=== PATIENT | male | born 1990 | race African-American/Black ===

== ENCOUNTER 2016-09-19 10:47 | Emergency (ER) | payer OTHER ==
[2016-09-19 10:51] VITALS: BP 120/65; PULSE 108; TEMP 100; BMI 24.4
[2016-09-19] MEDS ORDERED: ALBUTEROL SO4 2.5/IPRATROPIUM 0.5 INH SOL 3 ML VIAL.NEB. NEB ONE ×3 (11:10→12:14)
[2016-09-19] MEDS ORDERED: ACETAMINOPHEN 325 MG TABLET (FP) PO ONE (11:41)
--- NOTE | 2016-09-19 11:43 | PDOC ---
History of Present Illness - General Chief Complaint: Asthma Stated Complaint: SOB (ASTHMA ATTACK) Time Seen by Provider: 09/19/16 11:25 History Source: Patient Exam Limitations: No Limitations - History of Present Illness Initial Comments: 09/19/16 11:43 Pt. is a 26 y/o male with a PMH of asthma presenting to the ED today complaining of shortness of breath and chest tightness. Pt. believes he is having an asthma exacerbation. Pt. states that he has asthma since childhood. He has never been hospitalized or intubated for his asthma. His asthma has gotten better as an adult and he only uses an albuterol inhaler when needed. He states his inhaler has run out. Pt. states that he has a cold for the past day. Admits to fevers, runny nose, cough, and congestion. Denies a history of seasonal allergys. States that he had a similar episode back in July when he had a cold. Denies body aches, ear fullness, chest pain, N/V/D. Timing/Duration: 24 hours Past History - Travel Traveled outside of the country in the last 30 days: No Close contact w/someone who was outside of country & ill: No - Past Medical History Allergies/Adverse Reactions: Allergies Allergy/AdvReac Type Severity Reaction Status Date / Time moxifloxacin Allergy Severe Difficulty Verified 09/19/16 10:51 Breathing NSAIDS (Non-Steroidal Allergy Severe Difficulty Verified 09/19/16 10:51 Anti-Inflamma Breathing moxifloxacin HCl Allergy Verified 09/19/16 10:51 [From Avelox] Home Medications: Ambulatory Orders Mometasone Furoate [Asmanex 220Mcg -] 1 inh IH BID 03/13/15 Albuterol Sulfate Inhaler - [Ventolin Hfa Inhaler -] 1 - 2 inh PO Q4H PRN #1 inhaler 12/04/15 Albuterol 0.083% Nebulizer Ewelina [Ventolin 0.083% Nebulizer Soln -] 1 neb NEB Q4H #28 vial 09/19/16 Albuterol Sulfate Inhaler - [Ventolin HFA Inhaler -] 2 inh PO Q4H #1 inh Albuterol Sulfate Inhaler - [Ventolin HFA Inhaler -] 2 inh PO Q4H #1 inh Prednisone 20 mg PO BID #20 tablet 09/19/16 Prednisone 20 mg PO BID #20 tablet 09/19/16 Asthma: Yes - Surgical History Abdominal Surgery: Yes Appendectomy: Yes Cardiac Surgery: No Lung Surgery: Yes (LT LUNG/ Chest tube, ABSCESS) Neurologic Surgery: No - Immunization History Immunization Up to Date: Yes - Psycho/Social/Smoking Cessation Hx Anxiety: No Suicidal Ideation: No Smoking History: Never smoked Have you smoked in the past 12 months: No Number of Cigarettes Smoked Daily: 0 If you are a former smoker, when did you quit?: has not smoked for 3 days- but only smokes 1-2 cigarrettes per day. Cigars Per Day: 0 'Breaking Loose' booklet given: 04/26/14 Hx Alcohol Use: Yes (SOCIAL) Drug/Substance Use Hx: No Substance Use Type: None Hx Substance Use Treatment: No Review of Systems - Review of Systems Able to Perform ROS?: Yes Is the patient limited Croatian proficient: No Constitutional: Yes: Fever. No: Chills, Diaphoresis, Weakness HEENTM: Yes: Nose Congestion. No: Ear Pain, Ear Discharge, Throat Pain Respiratory: Yes: Cough, Shortness of Breath, SOB with Exertion, Wheezing Cardiac (ROS): Yes: Chest Tightness. No: Chest Pain, Palpitations ABD/GI: No: Constipated, Diarrhea, Nausea, Vomiting *Physical Exam - Vital Signs Last Vital Signs Temp Pulse Resp BP Pulse Ox 100.0 F H 108 H 20 120/65 97 09/19/16 10:48 09/19/16 10:48 09/19/16 10:48 09/19/16 10:48 09/19/16 10:48 - Physical Exam General Appearance: Yes: Nourished, Appropriately Dressed, Mild Distress (Pt. recieving 1st duoneb treatment given in triage) HEENT: positive: EOMI, KEV, Normal Voice, TMs Normal, Pharynx Normal, Nasal Congestion, Rhinorrhea. negative: Pharyngeal Erythema, Tonsillar Exudate Neck: positive: Trachea midline, Supple. negative: Tender, Normal Thyroid, Rigid Respiratory/Chest: positive: Respiratory Distress (Mild respiratory distress, chest tightness and SOB), Wheezing. negative: Lungs Clear (Fair aeration to the bases), Normal Breath Sounds, Accessory Muscle Use, Rales, Rhonchi Cardiovascular: positive: Regular Rhythm, S1, S2 (present), Tachycardia. negative: Regular Rate Medical Decision Making - Medical Decision Making 09/19/16 12:15 Pt. is a 26 y/o male with asthma presenting with an asthma exacerbation. Will r/ o flu as cause of URI. Expiratory wheezing present B/L after first duoneb. Will give second duoneb. Will give steroids. Re-evaluate 09/19/16 12:45 Pt. states he feels better after second duoneb. Less chest tightness. Still with scattered wheezing after treatemnt. Will give one more treatment 09/19/16 13:04 Pt. states he remains feeling better after third duoneb. Wheezing has subsided and there is fair aeration to the bases. Will discharge home at this time with a prescription for a new inhaler and prednisone. Pt is to see his PCP within the week to have his asthma re-evaluated. Given strict return precautions. Pt. understands discharge instructions and all questions were answered at this time. *DC/Admit/Observation/Transfer Diagnosis at time of Disposition: Asthma exacerbation, Viral respiratory illness - Discharge Dispostion Disposition: HOME Condition at time of disposition: Stable Admit: No - Prescriptions Prescriptions: Prednisone 20 mg PO BID #20 tablet Prednisone 20 mg PO BID #20 tablet Albuterol 0.083% Nebulizer Ewelina [Ventolin 0.083% Nebulizer Soln -] 1 neb NEB Q4H #28 vial Albuterol Sulfate Inhaler - [Ventolin HFA Inhaler -] 2 inh PO Q4H #1 inh Albuterol Sulfate Inhaler - [Ventolin HFA Inhaler -] 2 inh PO Q4H #1 inh - Referrals Referrals: Live Lopez MD [Primary Care Provider] - - Patient Instructions Printed Discharge Instructions: DI for Asthma -- Adult Additional Instructions: You have an upper respiratory infection that caused an asthma exacerbation. Your influenza test was negative. You were given nebulizer treatments in the ED. Use your nebulizer every four hours until your cold symptoms resolve. Take the steroids as prescribed. Follow up with your primary care doctor within the week. Return to the emergency department if you experience worsening shortness of breath despite nebulizer use, shortness of breath while walking, or any change in your symptoms, return to the ED. - Post Discharge Activity Work/School Note: Back to Work
[2016-09-19] MEDS ORDERED: ACETAMINOPHEN 325 MG TABLET (FP) ONE (11:51)
[2016-09-19] MEDS ORDERED: predniSONE 20 MG TABLET (UD) PO ONE (12:36)
[2016-09-19] MEDS ORDERED: predniSONE 20 MG TABLET (UD) ONE (12:41)
== END 2016-09-19 13:04 | disposition home or self-care (01) ==
LOC: JERFT 10:47
PROC: 3E0F7GC Introduction of Other Therapeutic Substance into Respiratory Tract, Via Natural or Artificial Opening (ICD-10-PCS; principal; 2016-09-19)
PROC: 3E0F7GC Introduction of Other Therapeutic Substance into Respiratory Tract, Via Natural or Artificial Opening (ICD-10-PCS; 2016-09-19)
DX: J45.901 Unspecified asthma with (acute) exacerbation (principal); B34.9 Viral infection, unspecified
CPT/HCPCS: 87804; 99281-25

== ENCOUNTER 2017-01-27 19:05 | Inpatient (IN) | payer SELFPAY ==
[2017-01-27 19:25] VITALS: BMI 25.1
--- NOTE | 2017-01-27 21:05 | PDOC ---
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 Also history of abscess to left lung which required drainage presents emergency department for evaluation of lesions to mouth, lesions to skin, redness and pain full eyes sore throat, pain to left lateral chest when breathing or reproduced with certain movements. Patient reports had similar pain to the left lung during incident that required surgery to drain the abscess. Patient reports feeling that he is having a flare up of the behcets syndrome and is worried that it may cause him to lose his sight as has happened in the past. Allergies: No known allergies Medications: None Family History: Non-contributory Social History: Denies smoking, alcohol use, or IVDU Vital signs on arrival are notable for temperature of 98.6 vital signs are stable Review of Systems GENERAL/CONSTITUTIONAL: No fever or chills. No weakness. No weight change. HEAD, EYES, EARS, NOSE AND THROAT: No blurred vision. No ear pain or discharge. Sore throat, lesions to lip, pain and redness to bilateral eyes CARDIOVASCULAR: No chest pain or shortness of breath. RESPIRATORY: No cough, wheezing, or hemoptysis. Pain to left lung on inspiration and reproduced with movement GASTROINTESTINAL: No nausea, vomiting, diarrhea or constipation. No rectal bleeding. GENITOURINARY: No dysuria, frequency, or change in urination. MUSCULOSKELETAL: No joint or muscle swelling or pain. No neck or back pain. SKIN AND BREASTS: No rash or easy bruising. Multiple painful lesions to arms NEUROLOGIC: No headache, vertigo, loss of consciousness, or loss of sensation. PSYCHIATRIC: No depression or anxiety. ENDOCRINE: No increased thirst. No abnormal weight change. HEMATOLOGIC/LYMPHATIC: No anemia, easy bleeding, or history of blood clots. ALLERGIC/IMMUNOLOGIC: No hives or skin allergy. No latex allergy. Physical Exam: GENERAL: The patient is awake, alert, and fully oriented, in no acute distress. HEAD: Normal with no signs of trauma. EYES: Pupils equal, round and reactive to light, extraocular movements intact, sclera anicteric, conjunctiva injected bilaterally. ENT: Ears normal, nares patent, oropharynx erythematous without exudates. Moist mucous membranes. No uvula deviation. Canker lesions to left lower lip. NECK: Normal range of motion, supple without lymphadenopathy, JVD, or masses. LUNGS: Breath sounds equal, clear to auscultation bilaterally. No wheezes, and no crackles. HEART: Regular rate and rhythm, normal S1 and S2 without murmur, rub or gallop. ABDOMEN: Soft, nontender, normoactive bowel sounds. No guarding, no rebound. No masses. No bruising or abrasions RECTAL : Guaiac negative, normal rectal tone. MUSCULOSKELETAL: Normal range of motion, no edema. No clubbing or cyanosis. No cords, erythema, or tenderness. No CVA Tenderness with fist. NEUROLOGICAL: Cranial nerves II through XII grossly intact. Normal speech, normal gait. PSYCH: Normal mood, normal affect. SKIN: Warm, Dry, normal turgor, multiple umbilicated painful lesions to left forearm. Past History - Past Medical History Allergies/Adverse Reactions: Allergies Allergy/AdvReac Type Severity Reaction Status Date / Time moxifloxacin Allergy Severe Difficulty Verified 01/27/17 19:20 Breathing NSAIDS (Non-Steroidal Allergy Severe Difficulty Verified 01/27/17 19:20 Anti-Inflamma Breathing moxifloxacin HCl Allergy Verified 01/27/17 19:20 [From Avelox] Home Medications: Ambulatory Orders Albuterol 0.083% Nebulizer Ewelina [Ventolin 0.083% Nebulizer Soln -] 1 neb NEB Q4H #28 vial 09/19/16 Sulfamethoxazole/Trimethoprim [Bactrim Ds -] 1 tab PO BID #14 tablet 01/27/17 Asthma: Yes Other medical history: Bechet's syndrome - Surgical History Abdominal Surgery: Yes Appendectomy: Yes Cardiac Surgery: No Lung Surgery: Yes (LT LUNG/ Chest tube, ABSCESS) Neurologic Surgery: No - Immunization History Immunization Up to Date: Yes - Suicide/Smoking/Psychosocial Hx Smoking History: Never smoked Have you smoked in the past 12 months: No Number of Cigarettes Smoked Daily: 0 If you are a former smoker, when did you quit?: has not smoked for 3 days- but only smokes 1-2 cigarrettes per day. Cigars Per Day: 0 Information on smoking cessation initiated: No 'Breaking Loose' booklet given: 04/26/14 Hx Alcohol Use: Yes (Cognac) Drug/Substance Use Hx: No Substance Use Type: None Hx Substance Use Treatment: No *Physical Exam - Vital Signs Last Vital Signs Temp Pulse Resp BP Pulse Ox 98.6 F 63 20 113/67 97 01/27/17 19:21 01/27/17 19:21 01/27/17 19:21 01/27/17 19:21 01/27/17 19:21 ED Treatment Course - LABORATORY CBC & Chemistry Diagram: 01/29/17 07:00 01/29/17 07:00 Medical Decision Making - Medical Decision Making 01/27/17 21:06 A/P: Patient here for evaluation of symptoms in regards to exacerbation of Behcets syndrome, r/o lung acute pathology. Because of patient's history of present illness and subjective data will place patient in the main emergency department for higher level of care. Rapid strep sent, chest x-ray ordered to rule out abscess or acute cardiopulmonary disease. Report to Perla charge nurse. *DC/Admit/Observation/Transfer Diagnosis at time of Disposition: Behcet's disease, Dehydration - Discharge Dispostion Condition at time of disposition: Guarded - Prescriptions
[2017-01-27] MEDS ORDERED: methylPREDNISolone NA SUCC 125 MG/2 ML VIAL IVPB ONE (22:37)
[2017-01-27] MEDS ORDERED: SODIUM CHLORIDE 0.9% 500 ML INFUS.BAG IV ONE (22:37)
--- NOTE | 2017-01-27 22:43 | PDOC ---
History of Present Illness - General History Source: Patient Exam Limitations: No Limitations - History of Present Illness Initial Comments: 01/27/17 23:28 The patient is a 26 year old male with a significant past medical history of MRSA, behcet's disease ( diagnosed a few years ago [facility] after he had a jane rachell like reaction to NSAIDs), who presents to the ED with scratchy eyes, pain in mouth, and pustules on his skin. Patient states symptoms began 3 days ago and is consistent with his past behcets flare ups. Patient states Dr. Lopez has been dealing with his behcets flare ups in the past. Patient states he is unable to eat or drink because of the lesions in his mouth. Patient denies fever, chills, headache, nausea, vomiting, diarrhea. Denies dysuria, frequency, hematuria. <Jaziel Godoy - Last Filed: 01/27/17 23:43> <Melany Virgen - Last Filed: 01/28/17 00:40> - General Chief Complaint: Sore Throat Stated Complaint: PAIN Time Seen by Provider: 01/27/17 20:34 Past History <Jaziel Godoy - Last Filed: 01/27/17 23:43> - Past Medical History Asthma: Yes Other medical history: Bechet's syndrome - Surgical History Abdominal Surgery: Yes Appendectomy: Yes Cardiac Surgery: No Lung Surgery: Yes (LT LUNG/ Chest tube, ABSCESS) Neurologic Surgery: No - Immunization History Immunization Up to Date: Yes - Suicide/Smoking/Psychosocial Hx Smoking History: Never smoked Have you smoked in the past 12 months: No Number of Cigarettes Smoked Daily: 0 If you are a former smoker, when did you quit?: has not smoked for 3 days- but only smokes 1-2 cigarrettes per day. Cigars Per Day: 0 Information on smoking cessation initiated: No 'Breaking Loose' booklet given: 04/26/14 Hx Alcohol Use: Yes (Cognac) Drug/Substance Use Hx: No Substance Use Type: None Hx Substance Use Treatment: No <Melany Virgen - Last Filed: 01/28/17 00:40> - Past Medical History Allergies/Adverse Reactions: Allergies Allergy/AdvReac Type Severity Reaction Status Date / Time moxifloxacin Allergy Severe Difficulty Verified 01/27/17 19:20 Breathing NSAIDS (Non-Steroidal Allergy Severe Difficulty Verified 01/27/17 19:20 Anti-Inflamma Breathing moxifloxacin HCl Allergy Verified 01/27/17 19:20 [From Avelox] Home Medications: Ambulatory Orders Albuterol 0.083% Nebulizer Ewelina [Ventolin 0.083% Nebulizer Soln -] 1 neb NEB Q4H #28 vial 09/19/16 Sulfamethoxazole/Trimethoprim [Bactrim Ds -] 1 tab PO BID #14 tablet 01/27/17 Review of Systems - Review of Systems Able to Perform ROS?: Yes Comments:: 01/27/17 23:28 GENERAL/CONSTITUTIONAL: No fever or chills. No weakness. HEAD, EYES, EARS, NOSE AND THROAT: + scratchy eyes. + pain in mouth. No change in vision. No ear pain or discharge. No sore throat. CARDIOVASCULAR: No chest pain or shortness of breath. RESPIRATORY: No cough, wheezing, or hemoptysis. GASTROINTESTINAL: No nausea, vomiting, diarrhea or constipation. GENITOURINARY: No dysuria, frequency, or change in urination. MUSCULOSKELETAL: No joint or muscle swelling or pain. No neck or back pain. SKIN: pustules on his skin. NEUROLOGIC: No headache, vertigo, loss of consciousness, or change in strength/ sensation. ENDOCRINE: No increased thirst. No abnormal weight change. HEMATOLOGIC/LYMPHATIC: No anemia, easy bleeding, or history of blood clots. ALLERGIC/IMMUNOLOGIC: No hives or skin allergy. <Jaziel Godoy - Last Filed: 01/27/17 23:43> *Physical Exam - Vital Signs Last Vital Signs Temp Pulse Resp BP Pulse Ox 98.6 F 63 20 113/67 97 01/27/17 19:21 01/27/17 19:21 01/27/17 19:21 01/27/17 19:21 01/27/17 19:21 - Physical Exam Comments: 01/27/17 23:29 GENERAL: Awake, alert, and fully oriented, in no acute distress HEAD: No signs of trauma EYES: Bright red sclera bilaterally PERRLA, EOMI, conjunctiva clear. ENT: Inside mouth: multiple lesions on the pharynx. Auricles normal inspection, hearing grossly normal, nares patent, Moist mucosa NECK: Normal ROM, supple, no lymphadenopathy, JVD, or masses LUNGS: Breath sounds equal, clear to auscultation bilaterally. No wheezes, and no crackles HEART: Regular rate and rhythm, normal S1 and S2, no murmurs, rubs or gallops ABDOMEN: Soft, nontender, normoactive bowel sounds. No guarding, no rebound. No masses EXTREMITIES: Normal range of motion, no edema. No clubbing or cyanosis. No cords, erythema, or tenderness NEUROLOGICAL: Cranial nerves II through XII grossly intact. Normal speech, normal gait SKIN: Lesion on outer lateral lip. Warm, Dry, normal turgor. <Jaziel Godoy - Last Filed: 01/27/17 23:43> - Vital Signs Last Vital Signs Temp Pulse Resp BP Pulse Ox 98.6 F 63 20 113/67 97 01/27/17 19:21 01/27/17 19:21 01/27/17 19:21 01/27/17 19:21 01/27/17 19:21 <Melany Virgen - Last Filed: 01/28/17 00:40> ED Treatment Course - LABORATORY CBC & Chemistry Diagram: 01/27/17 22:50 01/27/17 22:50 - ADDITIONAL ORDERS Additional order review: Laboratory Results 01/27/17 22:50 Sodium Cancelled Potassium Cancelled Chloride Cancelled Carbon Dioxide Cancelled Anion Gap Cancelled BUN Cancelled Creatinine Cancelled Creat Clearance w eGFR Cancelled Random Glucose Cancelled Calcium Cancelled Total Bilirubin Cancelled AST Cancelled ALT Cancelled Alkaline Phosphatase Cancelled Total Protein Cancelled Albumin Cancelled 01/27/17 20:40 Group A Strep Rapid Antigen - Final Throat 01/27/17 22:50 RBC 5.28 MCV 90.9 MCHC 33.8 RDW 15.3 MPV 8.5 Neutrophils % 78.9 D Lymphocytes % 9.4 D Monocytes % 10.3 H Eosinophils % 0.5 Basophils % 0.9 - Medications Given in the ED: ED Medications Discontinued Medications Generic Name Dose Route Start Last Admin Trade Name Josueq PRN Reason Stop Dose Admin Methylprednisolone Sodium Succinate 125 mg 01/27/17 22:37 01/27/17 23:08 Solu-Medrol - IVPB 01/27/17 22:38 125 mg ONCE ONE Administration Morphine Sulfate 2 mg 01/27/17 23:07 01/27/17 23:07 Morphine Injection - IVPUSH 01/27/17 23:08 2 mg NOW ONE Administration Ondansetron HCl 4 mg 01/27/17 23:08 01/27/17 23:09 Zofran Injection IVPUSH 01/27/17 23:09 4 mg NOW ONE Administration Sodium Chloride 1,000 ml 01/27/17 22:37 01/27/17 23:08 Normal Saline - IV 01/27/17 22:38 1,000 ml ONCE ONE Administration <Jaziel Godoy - Last Filed: 01/27/17 23:43> - LABORATORY CBC & Chemistry Diagram: 01/27/17 22:50 01/27/17 22:50 - ADDITIONAL ORDERS Additional order review: 01/27/17 20:40 Group A Strep Rapid Antigen - Final Throat <Melany Virgen - Last Filed: 01/28/17 00:40> Medical Decision Making - Medical Decision Making 01/27/17 23:[address] Campuzano. <Jaziel Godoy - Last Filed: 01/27/17 23:43> - Medical Decision Making 01/28/17 00:22 Pt comes with irritated and red eyes bilaterally and sore mouth and throat. Can' t eat or drink and his eyes are dry. Pt has Behcet's Disease. WBC is elevated and pt received morphine for his pain <Melany Virgen - Last Filed: 01/28/17 00:40> *DC/Admit/Observation/Transfer - Attestations Scribe Attestion: 01/27/17 23:31 Documentation prepared by Jaziel Godoy, acting as medical equipment repair technician for Melany Virgen MD. <Jaziel Godoy - Last Filed: 01/27/17 23:43> - Discharge Dispostion Admit: Yes <Melany Virgen - Last Filed: 01/28/17 00:40> Diagnosis at time of Disposition: Behcet's disease, Dehydration - Discharge Dispostion Condition at time of disposition: Guarded - Prescriptions Prescriptions: Sulfamethoxazole/Trimethoprim [Bactrim Ds -] 1 tab PO BID #14 tablet - Referrals Referrals: Live Lopez MD [Primary Care Provider] -
[2017-01-27 22:56] LABS: BASOPHIL 0.9 % (0-2.0); EOSINOPHIL 0.5 % (0-4.5); MCH 30.7 pg (25.7-33.7); MCHC 33.8 g/dl (32.0-35.9); MEAN CELL VOLUME 90.9 fl (80-96); MEAN PLT VOLUME 8.5 fl (7.5-11.1); NEUTROPHILS 78.9 % (42.8-82.8); PLATELET COUNT 212 K/MM3 (134-434); RDW 15.3 % (11.9-15.9); WHITE BLOOD COUNT 15.6 K/mm3 (4.0-10.0)
[2017-01-27] MEDS ORDERED: methylPREDNISolone NA SUCC 125 MG/2 ML VIAL ONE (22:58)
[2017-01-27] MEDS ORDERED: morphine CARPU-JECT 2 MG/1 ML DISP.SYRIN ONE (22:58)
[2017-01-27] MEDS ORDERED: ONDANSETRON 4 MG/2 ML VIAL ONE (22:58)
[2017-01-27] MEDS ORDERED: morphine CARPU-JECT 2 MG/1 ML DISP.SYRIN IVPUSH ONE (23:07)
[2017-01-27] MEDS ORDERED: ONDANSETRON 4 MG/2 ML VIAL IVPUSH ONE (23:08)
[2017-01-27] MEDS ORDERED: SULFAMETHOXAZOLE/TRIMETHOPRIM 800MG/160MG D.S. TABLET PO ONE (23:24)
[2017-01-27] MEDS ORDERED: DOXYCYCLINE INJECTION 100 MG in DEXTROSE 5%-WATER - 100 ML IVPB ONE (23:28)
[2017-01-27] MEDS ORDERED: DOXYCYCLINE HYCLATE 100 MG VIAL ONE (23:31)
[2017-01-27] MEDS ORDERED: ALBUTEROL SO4 0.083% IH SOL 2.5 MG/3 ML VIAL.NEB. NEB PRN (23:50)
[2017-01-27] MEDS ORDERED: VANCOMYCIN 1,000 MG in DEXTROSE 5%-WATER - 250 ML IVPB ONE (23:52)
[2017-01-28 00:59] LABS: ALBUMIN 3.6 g/dl (3.4-5.0); ALK PHOS 40 U/L (45-117); ANION GAP 9 (8-16); BILIRUBIN,TOTAL 0.6 mg/dL (0.2-1.0); CALCIUM 8.7 mg/dL (8.5-10.1); CO2 28 mmol/L (21-32); CREATININE 0.9 mg/dL (0.7-1.3); GLUCOSE,RANDOM 102 mg/dL (74-106); SGPT/ALT 19 U/L (12-78); TOT PROT 7.2 g/dl (6.4-8.2)
[2017-01-28 01:00] LABS: SGOT/AST 18 U/L (15-37)
[2017-01-28] MEDS ORDERED: VANCOMYCIN 1 GRAM (PRE-DOCKED) 250 ML IVPB ONE (01:42)
[2017-01-28] MEDS ORDERED: ONDANSETRON 4 MG/2 ML VIAL ONE (01:42)
[2017-01-28] MEDS ORDERED: morphine CARPU-JECT 2 MG/1 ML DISP.SYRIN ONE (01:42)
[2017-01-28] MEDS: ONDANSETRON 4 MG/2 ML VIAL IVPB PRN (01:46)
[2017-01-28] MEDS: morphine CARPU-JECT 2 MG/1 ML DISP.SYRIN IVPUSH PRN ×7 (01:46→21:58)
[2017-01-28] MEDS: DEXTROSE 5%-0.45% SALINE 1,000 ML IV SCH ×3 (03:21→23:45)
[2017-01-28] MEDS ORDERED: ACETAMINOPHEN 1000 MG/100 ML VIAL (NON FORMULARY) IVPB ONE (04:28)
[2017-01-28] MEDS: methylPREDNISolone NA SUCC 125 MG/2 ML VIAL IVPB SCH ×3 (06:15→21:52)
[2017-01-28 07:53] LABS: BASOPHIL 0.3 % (0-2.0); MCH 30.8 pg (25.7-33.7); MCHC 33.4 g/dl (32.0-35.9); MEAN CELL VOLUME 92.1 fl (80-96); NEUTROPHILS 91.8 % (42.8-82.8); PLATELET COUNT 199 K/MM3 (134-434); RDW 15.1 % (11.9-15.9); WHITE BLOOD COUNT 9.8 K/mm3 (4.0-10.0)
[2017-01-28 08:50] LABS: ANION GAP 13 (8-16); CALCIUM 9.1 mg/dL (8.5-10.1); CO2 24 mmol/L (21-32); GLUCOSE,RANDOM 104 mg/dL (74-106)
[2017-01-28] MEDS ORDERED: morphine CARPU-JECT 2 MG/1 ML DISP.SYRIN IVPUSH ONE (09:45)
--- NOTE | 2017-01-28 11:05 | EKG ---
Test Reason : Blood Pressure : / mmHG Vent. Rate : 055 BPM Atrial Rate : 055 BPM P-R Int : 154 ms QRS Dur : 094 ms QT Int : 420 ms P-R-T Axes : 061 072 055 degrees QTc Int : 401 ms SINUS BRADYCARDIA POSSIBLE LEFT ATRIAL ENLARGEMENT EARLY REPOLARIZATION BORDERLINE ECG WHEN COMPARED WITH ECG OF 30-APR-2013 08:48, NO SIGNIFICANT CHANGE WAS FOUND Confirmed by GILMA TERRY MD ([id number]) on 01/28/2017 11:05:29 AM Referred By: Confirmed By:GILMA TERRY MD
--- NOTE | 2017-01-28 12:53 | HP ---
Admitting History and Physical - Primary Care Physician PCP: Live Lopez - Admission Chief Complaint: I have Behcet's disease History of Present Illness: Mr Johnson is a very pleasant 26 year old male who comes in with worsening oral ulcerations over the past 3 weeks. He states he has a history of Behcets disease diagnosed in [place] prior to moving to [place] for school. He says it was originally diagnosed after he had a Law-Evan like reaction after taking NSAIDs. It is normal under control with prednisone. However 3 weeks ago he began to have a flare. He mainly noted it in his mouth and he was having pain with swallowing. It improved at first but steadily worsened. He was taking his prednisone but without relief. It became so severe that he was unable to eat or drink anything secondary to pain. He also noted very dry feeling eyes and small penile lesions. He felt feverish and had chills but says his temperature is normal. He denies lightheadedness, dizziness, passing out, shortness of breath, nausea, vomiting, diarrhea, constipation, difficulty or pain on urination, or swelling. He says he has left sided chest/flank pain that is similar to when he had to have an abscess drained. History Source: Patient Limitations to Obtaining History: No Limitations - Past Medical History Pulmonary: Yes: Asthma, Previously Intubated Rheumatology: Yes: Other (Law-Evan syndrome/Behcet's disease) ENT: Yes: Other (Mucositis) Dermatology: Yes: Other - Past Surgical History Past Surgical History: Yes: Appendectomy - Smoking History Smoking history: Never smoked Have you smoked in the past 12 months: No Aproximately how many cigarettes per day: 0 If you are a former smoker, when did you quit?: has not smoked for 3 days- but only smokes 1-2 cigarrettes per day. - Alcohol/Substance Use Hx Alcohol Use: Yes (Cognac) History of Substance Use: reports: None, Marijuana - Social History Usual Living Arrangement: Yes: Alone ADL: Independent Occupation: sells womens shoes in [employer] History of Recent Travel: No (no pet exposure, no fumes) Home Medications - Allergies Allergies/Adverse Reactions: Allergies Allergy/AdvReac Type Severity Reaction Status Date / Time moxifloxacin Allergy Severe Difficulty Verified 01/27/17 19:20 Breathing NSAIDS (Non-Steroidal Allergy Severe Difficulty Verified 01/27/17 19:20 Anti-Inflamma Breathing moxifloxacin HCl Allergy Verified 01/27/17 19:20 [From Avelox] - Home Medications Home Medications: Ambulatory Orders Albuterol 0.083% Nebulizer Ewelina [Ventolin 0.083% Nebulizer Soln -] 1 neb NEB Q4H #28 vial 09/19/16 Sulfamethoxazole/Trimethoprim [Bactrim Ds -] 1 tab PO BID #14 tablet 01/27/17 Family Disease History - Family Disease History Family Disease History: Other: Father (alive), Mother (thyroid dis, alive) Review of Systems Findings/Remarks: Full review of systems obtained, as per HPI and otherwise negative Physical Examination Vital Signs: Vital Signs Temperature 36.7 C 01/28/17 12:00 Pulse Rate 72 01/28/17 12:00 Respiratory Rate 20 01/28/17 12:00 Blood Pressure 138/69 01/28/17 12:00 O2 Sat by Pulse Oximetry (%) 98 01/28/17 06:00 Constitutional: Yes: Well Nourished, No Distress, Calm Eyes: Yes: Conjunctiva Clear, EOM Intact, PERRL HENT: Yes: Other (ulceration of mucous membranes) Cardiovascular: Yes: Regular Rate and Rhythm. No: Gallop, Murmur, Rub Respiratory: Yes: Regular, CTA Bilaterally. No: Rales, Rhonchi, Wheezes Gastrointestinal: Yes: Normal Bowel Sounds, Soft. No: Distention, Tenderness Renal/: Yes: Other (small penile ulcerations) Extremities: Yes: WNL Edema: No Labs: Laboratory Results - last 24 hr 01/27/17 01/27/17 01/27/17 22:50 22:50 22:50 WBC 15.6 H D RBC 5.28 Hgb 16.2 Hct 48.0 MCV 90.9 MCH 30.7 MCHC 33.8 RDW 15.3 Plt Count 212 MPV 8.5 Neutrophils % 78.9 D Lymphocytes % 9.4 D Monocytes % 10.3 H Eosinophils % 0.5 Basophils % 0.9 ESR 13 H Sodium Cancelled Potassium Cancelled Chloride Cancelled Carbon Dioxide Cancelled Anion Gap Cancelled BUN Cancelled Creatinine Cancelled Creat Clearance w eGFR Cancelled Random Glucose Cancelled Calcium Cancelled Total Bilirubin Cancelled AST Cancelled ALT Cancelled Alkaline Phosphatase Cancelled Total Protein Cancelled Albumin Cancelled 01/28/17 01/28/17 01/28/17 00:22 06:00 06:00 WBC 9.8 D RBC 4.99 Hgb 15.4 Hct 45.9 MCV 92.1 MCH 30.8 MCHC 33.4 RDW 15.1 Plt Count 199 MPV 9.0 Neutrophils % 91.8 H Lymphocytes % 6.2 L D Monocytes % 1.7 L D Eosinophils % 0.0 D Basophils % 0.3 ESR Sodium 139 139 Potassium 4.3 4.6 Chloride 102 102 Carbon Dioxide 28 24 Anion Gap 9 13 BUN 13 11 Creatinine 0.9 1.0 Creat Clearance w eGFR > 60 Random Glucose 102 D 104 Calcium 8.7 9.1 Total Bilirubin 0.6 D AST 18 D ALT 19 Alkaline Phosphatase 40 L Total Protein 7.2 Albumin 3.6 Imaging - Results Chest X-ray: Report Reviewed, Image Reviewed Problem List - Problems (1) Behcet's disease Assessment/Plan: -patient with history of Behcet's disease, now with flare -on high dose solumedrol, will continue and monitor for treatment -rheumatology consulted, ? if needs escalation and will need outpatient follow up -appreciate ID assistance, monitor for infectious process Code(s): M35.2 - BEHCET'S DISEASE (2) Dehydration Assessment/Plan: -continue IVF Code(s): E86.0 - DEHYDRATION (3) Conjunctivitis Assessment/Plan: -secondary to Behcets disease -continue solumedrol -await rheumatology recommendations Code(s): H10.9 - UNSPECIFIED CONJUNCTIVITIS Qualifiers: Conjunctivitis type: acute Acute conjunctivitis type: unspecified Laterality: left Qualified Code(s): H10.32 - Unspecified acute conjunctivitis, left eye (4) Odynophagia Assessment/Plan: -pain control with morphine -treatment of Behcet's disease Code(s): R13.10 - DYSPHAGIA, UNSPECIFIED
--- NOTE | 2017-01-28 13:49 | CON.ID ---
Consult Consult Specialty:: infectious diseases Reason for Consultation:: wound infection. bechets - History of Present Illness Chief Complaint: pain in the cheek History of Present Illness: 26 year old male who comes in with worsening oral ulcerations over the past 3 weeks. He states he has a history of Behcets disease diagnosed in [place] prior to moving to [place] for school. He says it was originally diagnosed after he had a Law-Evan like reaction after taking avelox. It is normal under control with prednisone. However 3 weeks ago he began to have a flare. He mainly noted it in his mouth and he was having pain with swallowing. It improved at first but steadily worsened. He was taking his prednisone but without relief. It became so severe that he was unable to eat or drink anything secondary to pain. He also noted very dry feeling eyes and felt like he had sand paper in his eyes and small penile lesions. He felt feverish and had chills but says his temperature is normal. he also mentions that on his left hand he got small abscess which he squeezed and the fluid went and touched his lips where he got the same type of lesions currently his main complaint is pain in the cheek - History Source History Provided By: Patient Limitations to Obtaining History: No Limitations - Past Medical History Pulmonary: Yes: Asthma, Previously Intubated Rheumatology: Yes: Other (Law-Evan syndrome) ENT: Yes: Other (Mucositis) Endocrine: Yes: Diabetes Mellitus Dermatology: Yes: Other Additional Medical History: see above - Past Surgical History Past Surgical History: Yes: Appendectomy - Alcohol/Substance Use Hx Alcohol Use: Yes (Cognac) History of Substance Use: reports: None - Smoking History Smoking history: Never smoked Have you smoked in the past 12 months: No Aproximately how many cigarettes per day: 0 If you are a former smoker, when did you quit?: has not smoked for 3 days- but only smokes 1-2 cigarrettes per day. 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[employer] History of Recent Travel: No (no pet exposure, no fumes) Home Medications - Allergies Allergies/Adverse Reactions: Allergies Allergy/AdvReac Type Severity Reaction Status Date / Time moxifloxacin Allergy Severe Difficulty Verified 01/27/17 19:20 Breathing NSAIDS (Non-Steroidal Allergy Severe Difficulty Verified 01/27/17 19:20 Anti-Inflamma Breathing moxifloxacin HCl Allergy Verified 01/27/17 19:20 [From Avelox] - Home Medications Home Medications: Ambulatory Orders Albuterol 0.083% Nebulizer Ewelina [Ventolin 0.083% Nebulizer Soln -] 1 neb NEB Q4H #28 vial 09/19/16 Sulfamethoxazole/Trimethoprim [Bactrim Ds -] 1 tab PO BID #14 tablet 01/27/17 Family Disease History - Family Disease History Family Disease History: Other: Father (alive), Mother (thyroid dis, alive) Review of Systems - Review of Systems Constitutional: reports: Fever Eyes: reports: No Symptoms HENT: reports: Other (ulcers in the cheek) Neck: reports: No Symptoms Cardiovascular: reports: No Symptoms Respiratory: reports: No Symptoms Gastrointestinal: reports: No Symptoms Genitourinary: reports: Other (penile lesions) Musculoskeletal: reports: No Symptoms Integumentary: reports: No Symptoms Neurological: reports: No Symptoms Endocrine: reports: No Symptoms Hematology/Lymphatic: reports: No Symptoms Psychiatric: reports: No Symptoms Physical Exam Vital Signs: Vital Signs Temperature 98.0 F 01/28/17 12:00 Pulse Rate 72 01/28/17 12:00 Respiratory Rate 20 01/28/17 12:00 Blood Pressure 138/69 01/28/17 12:00 O2 Sat by Pulse Oximetry (%) 98 01/28/17 06:00 Constitutional: Yes: Well Nourished, Calm, Mild Distress Eyes: Yes: Conjunctiva Clear, Tearing, Other (dry sensation in the eyes) HENT: Yes: Atraumatic, Normocephalic, Other (ulcers in the cheek) Neck: Yes: Supple, Trachea Midline Cardiovascular: Yes: Regular Rate and Rhythm Respiratory: Yes: Regular, CTA Bilaterally Gastrointestinal: Yes: Normal Bowel Sounds, Soft Musculoskeletal: Yes: WNL Extremities: Yes: WNL Integumentary: Yes: WNL Wound/Incision: Yes: Clean/Dry Neurological: Yes: Alert, Oriented Psychiatric: Yes: Alert, Oriented Imaging - Results Chest X-ray: Report Reviewed, Image Reviewed Assessment/Plan Problem List - Problems (1) Behcet's disease Code(s): M35.2 - BEHCET'S DISEASE (2) Dehydration Code(s): E86.0 - DEHYDRATION (3) Conjunctivitis Code(s): H10.9 - UNSPECIFIED CONJUNCTIVITIS Qualifiers: Conjunctivitis type: acute Acute conjunctivitis type: unspecified Laterality: left Qualified Code(s): H10.32 - Unspecified acute conjunctivitis, left eye (4) Odynophagia Code(s): R13.10 - DYSPHAGIA, UNSPECIFIED patient probably has behcets disease plan await for all cx reports await for rheum to see the patient patient probably need tnf blockers patient already is on steorids once rheum starts the patient on treatment --will start patient on clinda
[2017-01-28] MEDS: TRIAMCINOLONE ACET 0.1% ORAL 5 GM TUBE DT SCH ×2 (14:53→21:52)
[2017-01-28] MEDS ORDERED: PANTOPRAZOLE SODIUM 40 MG in SODIUM CHLORIDE 100 ML IVPB SCH (20:30)
[2017-01-28] MEDS ORDERED: PT OWN MED DRAWER 7, Y5N ONE (20:32)
[2017-01-28] MEDS: PANTOPRAZOLE SODIUM 40 MG in SODIUM CHLORIDE 100 ML IVPB SCH (21:51)
[2017-01-29] MEDS: morphine CARPU-JECT 2 MG/1 ML DISP.SYRIN IVPUSH PRN ×4 (00:58→11:32)
[2017-01-29] MEDS: methylPREDNISolone NA SUCC 125 MG/2 ML VIAL IVPB SCH (06:22)
[2017-01-29] MEDS: DEXTROSE 5%-0.45% SALINE 1,000 ML IV SCH ×2 (07:58→21:14)
[2017-01-29 08:04] LABS: BASOPHIL 0.1 % (0-2.0); MCH 30.5 pg (25.7-33.7); MCHC 33.2 g/dl (32.0-35.9); MEAN CELL VOLUME 91.7 fl (80-96); MEAN PLT VOLUME 9.2 fl (7.5-11.1); NEUTROPHILS 91.7 % (42.8-82.8); PLATELET COUNT 216 K/MM3 (134-434); RDW 14.9 % (11.9-15.9); WHITE BLOOD COUNT 17.3 K/mm3 (4.0-10.0)
[2017-01-29 08:20] LABS: CALCIUM 8.9 mg/dL (8.5-10.1); CO2 29 mmol/L (21-32); CREATININE 0.8 mg/dL (0.7-1.3); GLUCOSE,RANDOM 117 mg/dL (74-106); MAGNESIUM 2.2 mg/dL (1.8-2.4)
[2017-01-29 08:25] LABS: ANION GAP 6 (8-16)
[2017-01-29] MEDS ORDERED: PT OWN MED DRAWER 7, Y5N ONE ×2 (10:47→15:48)
[2017-01-29] MEDS: PANTOPRAZOLE SODIUM 40 MG in SODIUM CHLORIDE 100 ML IVPB SCH (10:49)
[2017-01-29] MEDS: TRIAMCINOLONE ACET 0.1% ORAL 5 GM TUBE DT SCH ×2 (10:49→21:13)
[2017-01-29] MEDS ORDERED: HYDROmorphone HCL CARPU-JECT 1 MG/1 ML DISP.SYRIN IVPB ONE (12:23)
--- NOTE | 2017-01-29 12:39 | PN ---
Progress Note, Physician Chief Complaint: Mr Johnson says he is still having pain with swallowing, unchanged from prior. No cp, sob, n/v. - Current Medication List Current Medications: Active Medications Albuterol Sulfate (Ventolin 0.083% Nebulizer Soln -) 1 amp NEB Q4H PRN PRN Reason: SHORTNESS OF BREATH Hydromorphone HCl (Dilaudid Injection -) 0.5 mg IVPB ONCE ONE Stop: 01/29/17 12:24 Hydromorphone HCl (Dilaudid Injection -) 1 mg IVPB Q4H PRN PRN Reason: PAIN Dextrose/Sodium Chloride (D5-1/2ns -) 1,000 mls @ 100 mls/hr IV ASDIR [facility] Last Admin: 01/29/17 07:58 Dose: 100 mls/hr Pantoprazole Sodium 40 mg/ (Sodium Chloride) 100 mls @ 200 mls/hr IVPB DAILY [facility] Last Admin: 01/29/17 10:49 Dose: 200 mls/hr Methylprednisolone Sodium Succinate (Solu-Medrol -) 80 mg IVPB TID [facility] Last Admin: 01/29/17 06:22 Dose: 80 mg Ondansetron HCl (Zofran Injection) 4 mg IVPB Q6H PRN PRN Reason: NAUSEA Last Admin: 01/28/17 01:46 Dose: 4 mg Triamcinolone Acetonide (Aristocort 0.1% Oral Paste -) 1 applic DT BID [facility] Last Admin: 01/29/17 10:49 Dose: 1 applic - Objective Vital Signs: Vital Signs Temperature 36.6 C 01/29/17 11:00 Pulse Rate 59 L 01/29/17 11:00 Respiratory Rate 18 01/29/17 11:00 Blood Pressure 125/80 01/29/17 11:00 O2 Sat by Pulse Oximetry (%) 95 01/29/17 07:00 Constitutional: Yes: Well Nourished, No Distress, Calm Cardiovascular: Yes: Regular Rate and Rhythm. No: Gallop, Murmur, Rub Respiratory: Yes: Regular, CTA Bilaterally. No: Rales, Rhonchi, Wheezes Gastrointestinal: Yes: Normal Bowel Sounds, Soft. No: Distention, Tenderness Extremities: Yes: WNL Edema: No Labs: CBC, BMP 01/29/17 07:01/29/17 07:00 Problem List - Problems (1) Behcet's disease Code(s): M35.2 - BEHCET'S DISEASE (2) Dehydration Code(s): E86.0 - DEHYDRATION (3) Conjunctivitis Code(s): H10.9 - UNSPECIFIED CONJUNCTIVITIS Qualifiers: Conjunctivitis type: acute Acute conjunctivitis type: unspecified Laterality: left Qualified Code(s): H10.32 - Unspecified acute conjunctivitis, left eye (4) Odynophagia Code(s): R13.10 - DYSPHAGIA, UNSPECIFIED Assessment/Plan (1) Behcet's disease Assessment/Plan: -appreciate rheumatology assistance -started on colchicine and imuran -ECHO ordered -solumedrol decreased -monitor for improvement Code(s): M35.2 - BEHCET'S DISEASE (2) Dehydration Assessment/Plan: -continue IVF Code(s): E86.0 - DEHYDRATION (3) Conjunctivitis Assessment/Plan: -ophthalmology consulted Code(s): H10.9 - UNSPECIFIED CONJUNCTIVITIS Qualifiers: Conjunctivitis type: acute Acute conjunctivitis type: unspecified Laterality: left Qualified Code(s): H10.32 - Unspecified acute conjunctivitis, left eye (4) Odynophagia Assessment/Plan: -pain control with dilaudid -treatment of Behcet's disease Code(s): R13.10 - DYSPHAGIA, UNSPECIFIED
[2017-01-29] MEDS: HYDROmorphone HCL CARPU-JECT 1 MG/1 ML DISP.SYRIN IVPB PRN ×3 (12:58→22:02)
--- NOTE | 2017-01-29 13:03 | CONSULT ---
Consult Consult Specialty:: Rheumatology - History of Present Illness History of Present Illness: 26 year old male with probable Behcet's disease admitted with recurrent oral mucositis. In 2011 the patent developed severe swelling of the lips and oral ulcers after treatment with Avalox for pneumonia. He did not develop skin rash, was diagnosed with Vladimir's Evan syndrome, and hospitalized. in [facility] [place] [place], requiring intubation. Since then he has had recurrent episodes of lip swelling and oral ulcers with an average of once every 2 months and recurrent red eyes with blurry vision. He reports not quantified fever with the acute flare-ups and he has been treated with steroids (usually 50 mg daily with a tapering schedule). I saw him on a previous admission on 04/25/14 and apparently he has not have follow- up with a artifacts conservator for control of the disease. On this occasion he was admitted with a similar picture, with a 3 week history of progressive ulcer in oral mucosa and blurred vision. He denies arthralgia, genital ulcers, skin rash or headaches. diarrhea or neurological symptoms. The patient was started on Solumedrol 80 mg TID. - History Source History Provided By: Patient, Medical Record Limitations to Obtaining History: No Limitations - Past Medical History Pulmonary: Yes: Asthma, Previously Intubated Rheumatology: Yes: Other (Law-Evan syndrome/Behcet's disease) ENT: Yes: Other (Mucositis) Endocrine: Yes: Diabetes Mellitus Dermatology: Yes: Other Additional Medical History: see above - Past Surgical History Past Surgical History: Yes: Appendectomy - Alcohol/Substance Use Hx Alcohol Use: Yes (Cognac) History of Substance Use: reports: None, Marijuana - Smoking History Smoking history: Never smoked Have you smoked in the past 12 months: No Aproximately how many cigarettes per day: 0 If you are a former smoker, when did you quit?: has not smoked for 3 days- but only smokes 1-2 cigarrettes per day. 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[employer] History of Recent Travel: No (no pet exposure, no fumes) Home Medications - Allergies Allergies/Adverse Reactions: Allergies Allergy/AdvReac Type Severity Reaction Status Date / Time moxifloxacin Allergy Severe Difficulty Verified 01/27/17 19:20 Breathing NSAIDS (Non-Steroidal Allergy Severe Difficulty Verified 01/27/17 19:20 Anti-Inflamma Breathing moxifloxacin HCl Allergy Verified 01/27/17 19:20 [From Avelox] - Home Medications Home Medications: Ambulatory Orders Albuterol 0.083% Nebulizer Ewelina [Ventolin 0.083% Nebulizer Soln -] 1 neb NEB Q4H #28 vial 09/19/16 Sulfamethoxazole/Trimethoprim [Bactrim Ds -] 1 tab PO BID #14 tablet 01/27/17 Family Disease History - Family Disease History Family Disease History: Other: Father (alive), Mother (thyroid dis, alive) Review of Systems - Review of Systems Constitutional: reports: Malaise Eyes: reports: Blurred Vision HENT: reports: Other (Painful ulcers in oral mucosa) Neck: reports: No Symptoms Cardiovascular: reports: No Symptoms Respiratory: reports: No Symptoms Gastrointestinal: reports: No Symptoms Genitourinary: reports: No Symptoms Musculoskeletal: reports: No Symptoms Integumentary: reports: No Symptoms Physical Exam Vital Signs: Vital Signs Temperature 98 F 01/29/17 11:00 Pulse Rate 59 L 01/29/17 11:00 Respiratory Rate 18 01/29/17 11:00 Blood Pressure 125/80 01/29/17 11:00 O2 Sat by Pulse Oximetry (%) 95 01/29/17 07:00 Constitutional: Yes: Moderate Distress Eyes: Yes: WNL HENT: Yes: Other (Multiple oral ulcers) Neck: Yes: WNL Cardiovascular: Yes: WNL Respiratory: Yes: WNL Gastrointestinal: Yes: WNL Musculoskeletal: Yes: Other (No active joints.) Labs: CBC, BMP 01/29/17 07:00 01/29/17 07:00 Problem List - Problems (1) Behcet's disease Assessment/Plan: Probable Behcet's disease with recurrent episodes of painful oral ulcers and probable uveitis, poorly controlled. Plan: Decreased Solumedrol to 60 mg IV BID. Start Colchicine 0.6 mg BID and Azathioprin 50 mg/d. As outpatient Azarthioprin should be increased to at least 100 mg/d. The patient requires ophtalmological evaluation, and follow up by rheumatology as outpatient. Echocardiogram. Code(s): M35.2 - BEHCET'S DISEASE
[2017-01-29] MEDS: COLCHICINE 0.6 MG TABLET (FP) PO SCH ×2 (15:55→21:14)
--- NOTE | 2017-01-29 17:33 | PN ---
Progress Note, Physician History of Present Illness: patient doing much better mouth wash helping him rheumatology evaluated the patient no other complaints - Current Medication List Current Medications: Active Medications Albuterol Sulfate (Ventolin 0.083% Nebulizer Soln -) 1 amp NEB Q4H PRN PRN Reason: SHORTNESS OF BREATH Azathioprine (Imuran -) 50 mg PO DAILY [facility] Colchicine (Colcrys -) 0.6 mg PO BID [facility] Last Admin: 01/29/17 15:55 Dose: 0.6 mg Hydromorphone HCl (Dilaudid Injection -) 1 mg IVPB Q4H PRN PRN Reason: PAIN Last Admin: 01/29/17 12:58 Dose: 1 mg Dextrose/Sodium Chloride (D5-1/2ns -) 1,000 mls @ 100 mls/hr IV ASDIR [facility] Last Admin: 01/29/17 07:58 Dose: 100 mls/hr Pantoprazole Sodium 40 mg/ (Sodium Chloride) 100 mls @ 200 mls/hr IVPB DAILY [facility] Last Admin: 01/29/17 10:49 Dose: 200 mls/hr Methylprednisolone Sodium Succinate (Solu-Medrol -) 60 mg IVPB BID [facility] Ondansetron HCl (Zofran Injection) 4 mg IVPB Q6H PRN PRN Reason: NAUSEA Last Admin: 01/28/17 01:46 Dose: 4 mg Triamcinolone Acetonide (Aristocort 0.1% Oral Paste -) 1 applic DT BID [facility] Last Admin: 01/29/17 10:49 Dose: 1 applic - Objective Vital Signs: Vital Signs Temperature 98.4 F 01/29/17 14:31 Pulse Rate 73 01/29/17 14:31 Respiratory Rate 18 01/29/17 11:00 Blood Pressure 144/67 01/29/17 14:31 O2 Sat by Pulse Oximetry (%) 95 01/29/17 07:00 Constitutional: Yes: Calm, Mild Distress Cardiovascular: Yes: Regular Rate and Rhythm Respiratory: Yes: Regular, CTA Bilaterally Gastrointestinal: Yes: Normal Bowel Sounds, Soft Genitourinary: Yes: Other (penile ulcers healing) Musculoskeletal: Yes: WNL Extremities: Yes: WNL Neurological: Yes: Alert, Oriented Psychiatric: Yes: Alert, Oriented Labs: CBC, BMP 01/29/17 07:00 01/29/17 07:00 Assessment/Plan Problem List - Problems (1) Behcet's disease Code(s): M35.2 - BEHCET'S DISEASE (2) Dehydration Code(s): E86.0 - DEHYDRATION (3) Conjunctivitis Code(s): H10.9 - UNSPECIFIED CONJUNCTIVITIS Qualifiers: Conjunctivitis type: acute Acute conjunctivitis type: unspecified Laterality: left Qualified Code(s): H10.32 - Unspecified acute conjunctivitis, left eye (4) Odynophagia Code(s): R13.10 - DYSPHAGIA, UNSPECIFIED patient probably has behcets disease plan will start on clinda rest continue current mgmt
[2017-01-29] MEDS: azaTHIOprine 50 MG TABLET PO SCH (17:37)
[2017-01-29] MEDS: CLINDAMYCIN HCL 150 MG CAPSULE (FP) PO SCH (17:59)
[2017-01-29 21:05] LABS: URINE APPEARANCE CLEAR; URINE BILIRUBIN NEGATIVE (NEGATIVE); URINE BLOOD NEGATIVE (NEGATIVE); URINE COLOR STRAW; URINE GLUCOSE (UA) NEGATIVE (NEGATIVE); URINE KETONE NEGATIVE (NEGATIVE); URINE LEUK ESTERASE NEGATIVE (NEGATIVE); URINE NITRITE NEGATIVE (NEGATIVE); URINE PROTEIN NEGATIVE (NEGATIVE); URINE UROBILINOGEN NEGATIVE mg/dL (0.2-1.0)
[2017-01-29] MEDS ORDERED: methylPREDNISolone NA SUCC 125 MG/2 ML VIAL IVPB SCH (22:00)
[2017-01-30] MEDS: CLINDAMYCIN HCL 150 MG CAPSULE (FP) PO SCH ×5 (00:31→23:04)
[2017-01-30] MEDS: DEXTROSE 5%-0.45% SALINE 1,000 ML IV SCH ×3 (00:32→09:56)
[2017-01-30] MEDS: HYDROmorphone HCL CARPU-JECT 1 MG/1 ML DISP.SYRIN IVPB PRN ×6 (02:01→23:05)
[2017-01-30] MEDS: ONDANSETRON 4 MG/2 ML VIAL IVPB PRN (02:01)
[2017-01-30 08:30] LABS: BASOPHIL 0.3 % (0-2.0); MCH 30.4 pg (25.7-33.7); MCHC 33.1 g/dl (32.0-35.9); MEAN PLT VOLUME 9.4 fl (7.5-11.1); NEUTROPHILS 90.2 % (42.8-82.8); PLATELET COUNT 209 K/MM3 (134-434); RDW 14.7 % (11.9-15.9); WHITE BLOOD COUNT 16.4 K/mm3 (4.0-10.0)
[2017-01-30 08:51] LABS: ANION GAP 6 (8-16); CALCIUM 9.1 mg/dL (8.5-10.1); CO2 33 mmol/L (21-32); CREATININE 0.8 mg/dL (0.7-1.3); GLUCOSE,RANDOM 110 mg/dL (74-106); MAGNESIUM 2.4 mg/dL (1.8-2.4); PHOSPHOROUS 3.7 mg/dL (2.5-4.9)
[2017-01-30] MEDS ORDERED: PT OWN MED DRAWER 7, Y5N ONE ×3 (09:31→20:32)
[2017-01-30] MEDS: PANTOPRAZOLE SODIUM 40 MG in SODIUM CHLORIDE 100 ML IVPB SCH (09:51)
[2017-01-30] MEDS: methylPREDNISolone NA SUCC 40 MG/1 ML VIAL IVPB SCH ×2 (09:54→21:32)
[2017-01-30] MEDS: azaTHIOprine 50 MG TABLET PO SCH (09:54)
[2017-01-30] MEDS: COLCHICINE 0.6 MG TABLET (FP) PO SCH ×2 (09:54→21:32)
[2017-01-30] MEDS: TRIAMCINOLONE ACET 0.1% ORAL 5 GM TUBE DT SCH ×2 (09:54→21:31)
[2017-01-30] MEDS: ARTIFICIAL TEARS (POLYVINYL ALCOHOL 1.4%) OPTH DROPS OU PRN (11:35)
--- NOTE | 2017-01-30 15:29 | PN ---
Progress Note, Physician History of Present Illness: doing better throat bothering him otherwise ok opthalm saw the patient - Current Medication List Current Medications: Active Medications Albuterol Sulfate (Ventolin 0.083% Nebulizer Soln -) 1 amp NEB Q4H PRN PRN Reason: SHORTNESS OF BREATH Artificial Tears (Artificial Tears Ointment -) 1 applic OU HS [facility]AD[facility] Artificial Tears (Artificial Tears) 1 drop OU Q6HPO PRN PRN Reason: DRY EYES Last Admin: 01/30/17 11:35 Dose: 1 drop Azathioprine (Imuran -) 50 mg PO DAILY [facility] Last Admin: 01/30/17 09:54 Dose: 50 mg Clindamycin HCl (Cleocin -) 300 mg PO Q6HPO [facility] Last Admin: 01/30/17 11:35 Dose: 300 mg Colchicine (Colcrys -) 0.6 mg PO BID [facility] Last Admin: 01/30/17 09:54 Dose: 0.6 mg Hydromorphone HCl (Dilaudid Injection -) 1 mg IVPB Q4H PRN PRN Reason: PAIN Last Admin: 01/30/17 15:04 Dose: 1 mg Pantoprazole Sodium 40 mg/ (Sodium Chloride) 100 mls @ 200 mls/hr IVPB DAILY [facility] Last Admin: 01/30/17 09:51 Dose: 200 mls/hr Dextrose/Sodium Chloride (D5-1/2ns -) 1,000 mls @ 125 mls/hr IV ASDIR [facility] Last Admin: 01/30/17 09:56 Dose: 125 mls/hr Methylprednisolone Sodium Succinate (Solu-Medrol -) 60 mg IVPB BID [facility] Last Admin: 01/30/17 09:54 Dose: 60 mg Ondansetron HCl (Zofran Injection) 4 mg IVPB Q6H PRN PRN Reason: NAUSEA Last Admin: 01/30/17 02:01 Dose: 4 mg Triamcinolone Acetonide (Aristocort 0.1% Oral Paste -) 1 applic DT BID [facility] Last Admin: 01/30/17 09:54 Dose: 1 applic - Objective Vital Signs: Vital Signs Temperature 97.9 F 01/30/17 14:47 Pulse Rate 54 L 01/30/17 14:47 Respiratory Rate 18 01/30/17 10:00 Blood Pressure 141/87 09/27/17 14:47 O2 Sat by Pulse Oximetry (%) 95 01/30/17 09:00 Constitutional: Yes: No Distress, Calm HENT: Yes: Other (ulcers are better in the mouth) Cardiovascular: Yes: Regular Rate and Rhythm Respiratory: Yes: Regular, CTA Bilaterally Gastrointestinal: Yes: Normal Bowel Sounds, Soft Musculoskeletal: Yes: WNL Extremities: Yes: WNL Neurological: Yes: Alert, Oriented Psychiatric: Yes: Alert, Oriented Labs: CBC, BMP 01/30/17 07:18 01/30/17 07:18 Assessment/Plan Problem List - Problems (1) Behcet's disease Code(s): M35.2 - BEHCET'S DISEASE (2) Dehydration Code(s): E86.0 - DEHYDRATION (3) Conjunctivitis Code(s): H10.9 - UNSPECIFIED CONJUNCTIVITIS Qualifiers: Conjunctivitis type: acute Acute conjunctivitis type: unspecified Laterality: left Qualified Code(s): H10.32 - Unspecified acute conjunctivitis, left eye (4) Odynophagia Code(s): R13.10 - DYSPHAGIA, UNSPECIFIED patient probably has behcets disease plan continue current mgmt patient having furry tongue will start nystatin swish and spit
--- NOTE | 2017-01-30 15:58 | PN ---
Progress Note, Physician Chief Complaint: Mr Johnson is still having pain with swallowing, but seems to be tolerating clear diet. No cp, sob, n/v. - Current Medication List Current Medications: Active Medications Albuterol Sulfate (Ventolin 0.083% Nebulizer Soln -) 1 amp NEB Q4H PRN PRN Reason: SHORTNESS OF BREATH Artificial Tears (Artificial Tears Ointment -) 1 applic OU HS SADIE Artificial Tears (Artificial Tears) 1 drop OU Q6HPO PRN PRN Reason: DRY EYES Last Admin: 01/30/17 11:35 Dose: 1 drop Azathioprine (Imuran -) 50 mg PO DAILY [facility] Last Admin: 01/30/17 09:54 Dose: 50 mg Clindamycin HCl (Cleocin -) 300 mg PO Q6HPO [facility] Last Admin: 01/30/17 11:35 Dose: 300 mg Colchicine (Colcrys -) 0.6 mg PO BID [facility] Last Admin: 01/30/17 09:54 Dose: 0.6 mg Hydromorphone HCl (Dilaudid Injection -) 1 mg IVPB Q4H PRN PRN Reason: PAIN Last Admin: 01/30/17 15:04 Dose: 1 mg Pantoprazole Sodium 40 mg/ (Sodium Chloride) 100 mls @ 200 mls/hr IVPB DAILY [facility] Last Admin: 01/30/17 09:51 Dose: 200 mls/hr Dextrose/Sodium Chloride (D5-1/2ns -) 1,000 mls @ 125 mls/hr IV ASDIR [facility] Last Admin: 01/30/17 09:56 Dose: 125 mls/hr Methylprednisolone Sodium Succinate (Solu-Medrol -) 60 mg IVPB BID [facility] Last Admin: 01/30/17 09:54 Dose: 60 mg Nystatin (Nystatin Oral Suspension -) 500,000 units PO Q6HPO [facility] Ondansetron HCl (Zofran Injection) 4 mg IVPB Q6H PRN PRN Reason: NAUSEA Last Admin: 01/30/17 02:01 Dose: 4 mg Triamcinolone Acetonide (Aristocort 0.1% Oral Paste -) 1 applic DT BID [facility] Last Admin: 01/30/17 09:54 Dose: 1 applic - Objective Vital Signs: Vital Signs Temperature 36.6 C 01/30/17 14:47 Pulse Rate 54 L 01/30/17 14:47 Respiratory Rate 18 01/30/17 10:00 Blood Pressure 141/87 01/30/17 14:47 O2 Sat by Pulse Oximetry (%) 95 01/30/17 09:00 Constitutional: Yes: Well Nourished, No Distress, Calm Cardiovascular: Yes: Regular Rate and Rhythm. No: Gallop, Murmur, Rub Respiratory: Yes: Regular, CTA Bilaterally. No: Rales, Rhonchi, Wheezes Gastrointestinal: Yes: Normal Bowel Sounds, Soft. 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 (2) Dehydration Code(s): E86.0 - DEHYDRATION (3) Conjunctivitis Code(s): H10.9 - UNSPECIFIED CONJUNCTIVITIS Qualifiers: Conjunctivitis type: acute Acute conjunctivitis type: unspecified Laterality: left Qualified Code(s): H10.32 - Unspecified acute conjunctivitis, left eye (4) Odynophagia Code(s): R13.10 - DYSPHAGIA, UNSPECIFIED Assessment/Plan (1) Behcet's disease Assessment/Plan: -appreciate rheumatology assistance -started on colchicine and imuran -ECHO reviewed -continue solumedrol dose today -monitor for improvement -started on clindamycin per ID Code(s): M35.2 - BEHCET'S DISEASE (2) Dehydration Assessment/Plan: -continue IVF Code(s): E86.0 - DEHYDRATION (3) Conjunctivitis Assessment/Plan: -ophthalmology consulted and started on eye drops Code(s): H10.9 - UNSPECIFIED CONJUNCTIVITIS Qualifiers: Conjunctivitis type: acute Acute conjunctivitis type: unspecified Laterality: left Qualified Code(s): H10.32 - Unspecified acute conjunctivitis, left eye (4) Odynophagia Assessment/Plan: -pain control with dilaudid -treatment of Behcet's disease -nystatin swish and swallow added Code(s): R13.10 - DYSPHAGIA, UNSPECIFIED Dispo -possible discharge tomorrow
[2017-01-30] MEDS: NYSTATIN 500,000 UNITS/5 ML SUSPENSION PO SCH ×2 (17:18→23:05)
[2017-01-30] MEDS ORDERED: MINERAL OIL/PETROLATUM,WHITE 3.5 GM TUBE OU SCH (22:00)
[2017-01-31] MEDS: HYDROmorphone HCL CARPU-JECT 1 MG/1 ML DISP.SYRIN IVPB PRN ×3 (03:21→12:16)
[2017-01-31] MEDS: CLINDAMYCIN HCL 150 MG CAPSULE (FP) PO SCH ×2 (06:15→11:42)
[2017-01-31] MEDS: NYSTATIN 500,000 UNITS/5 ML SUSPENSION PO SCH ×2 (06:16→11:42)
[2017-01-31] MEDS: DEXTROSE 5%-0.45% SALINE 1,000 ML IV SCH (06:20)
[2017-01-31 08:28] LABS: BASOPHIL 0.1 % (0-2.0); MCHC 32.8 g/dl (32.0-35.9); MEAN CELL VOLUME 91.4 fl (80-96); NEUTROPHILS 87.8 % (42.8-82.8); PLATELET COUNT 214 K/MM3 (134-434); RDW 14.8 % (11.9-15.9); WHITE BLOOD COUNT 13.4 K/mm3 (4.0-10.0)
[2017-01-31 08:57] LABS: ANION GAP 10 (8-16); CALCIUM 8.5 mg/dL (8.5-10.1); CO2 30 mmol/L (21-32); CREATININE 0.8 mg/dL (0.7-1.3); GLUCOSE,RANDOM 129 mg/dL (74-106); MAGNESIUM 2.3 mg/dL (1.8-2.4); PHOSPHOROUS 3.6 mg/dL (2.5-4.9)
[2017-01-31] MEDS ORDERED: PT OWN MED DRAWER 7, Y5N ONE ×2 (09:31→11:38)
[2017-01-31] MEDS: azaTHIOprine 50 MG TABLET PO SCH (09:57)
[2017-01-31] MEDS: COLCHICINE 0.6 MG TABLET (FP) PO SCH (09:57)
[2017-01-31] MEDS: TRIAMCINOLONE ACET 0.1% ORAL 5 GM TUBE DT SCH (09:57)
[2017-01-31] MEDS: methylPREDNISolone NA SUCC 40 MG/1 ML VIAL IVPB SCH (09:58)
[2017-01-31] MEDS: ARTIFICIAL TEARS (POLYVINYL ALCOHOL 1.4%) OPTH DROPS OU PRN (09:58)
[2017-01-31] MEDS ORDERED: PANTOPRAZOLE 40 MG TABLET (FP) PO SCH (10:00)
--- NOTE | 2017-01-31 13:10 | DS ---
Physical Examination Vital Signs: Vital Signs Temperature 36.7 C 01/31/17 10:00 Pulse Rate 61 01/31/17 10:00 Respiratory Rate 18 01/31/17 10:00 Blood Pressure 130/69 01/31/17 10:00 O2 Sat by Pulse Oximetry (%) 97 01/30/17 21:00 Labs: CBC, BMP 01/31/17 06:45 01/31/17 06:45 Discharge Summary Reason For Visit: BEHCET'S DISEASE DEHYDRATION Current Active Problems Behcet's disease (Acute) Dehydration (Acute) Odynophagia (Acute) Condition: Good - Instructions Diet, Activity, Other Instructions: resume previous diet and activity Referrals: Live Lopez MD [Primary Care Provider] - Disposition: HOME - Home Medications Comprehensive Discharge Medication List: Ambulatory Orders Albuterol 0.083% Nebulizer Ewelina [Ventolin 0.083% Nebulizer Soln -] 1 neb NEB Q4H #28 vial 09/19/16 Azathioprine [Imuran -] 50 mg PO DAILY #30 tablet 01/31/17 Clindamycin [Cleocin -] 300 mg PO Q6HPO #60 cap 01/31/17 Colchicine [Colcrys -] 0.6 mg PO BID #60 tablet 01/31/17 Mineral Oil/Petrolatum,White [Artificial Tears Ointment -] 1 applic OU HS #1 tu 01/31/17 Nystatin Oral Suspension - [Nystatin Oral Susp 370469 Units/5 ML -] 500,000 units PO Q6HPO #1 bottle 01/31/17 Polyvinyl Alcohol [Artificial Tears] 1 drop OU Q6HPO PRN #0 bottle 01/31/17 Prednisone [Deltasone -] 5 mg PO ASDIR #78 tab 01/31/17 Triamcinolone 0.1% Oral Paste [Aristocort 0.1% Oral Paste -] 1 applic DT BID #1 tube 01/31/17
[2017-01-31 14:12] VITALS: BP 142/84; PULSE 65; TEMP 98.4
== END 2017-01-31 14:47 | disposition home or self-care (01) | DRG 346 ==
LOC: JER 19:05 → JERFT 19:05 → JERBED 23:48 → J5S 01-28 05:12 → OBSVTOIN 01-28 12:14
PROVIDERS: ADMIT Specialist; ATTEND Specialist
DX: M35.2 Behcet's disease (principal); J02.9 Acute pharyngitis, unspecified; E86.0 Dehydration; L51.1 Stevens-Johnson syndrome; J45.909 Unspecified asthma, uncomplicated; K12.30 Oral mucositis (ulcerative), unspecified; F17.200 Nicotine dependence, unspecified, uncomplicated; H10.32 Unspecified acute conjunctivitis, left eye; R13.10 Dysphagia, unspecified; E11.9 Type 2 diabetes mellitus without complications; H20.9 Unspecified iridocyclitis; Z86.14 Personal history of Methicillin resistant Staphylococcus aureus infection
CPT/HCPCS: 36415; 71020-TC; 80048; 80053; 81003; 83735; 84100; 85025; 85651; 86038; 86162; 86225; 87070; 87081; 87430; 93005; 93010; 93306-TC; 99282-25; G0378

== ENCOUNTER 2017-04-08 02:23 | Emergency (ER) | payer SELFPAY ==
[2017-04-08 02:34] VITALS: BP 110/66; PULSE 94; BMI 25.1
[2017-04-08] MEDS ORDERED: ALBUTEROL SO4 2.5/IPRATROPIUM 0.5 INH SOL 3 ML VIAL.NEB. NEB ONE ×2 (02:37→03:41)
--- NOTE | 2017-04-08 02:41 | PDOC ---
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 Pt has a viral illness; states that he got the flu shot recently. States that he thinks that the cold is exacerbating his asthma. - Physicial Exam PE: 04/08/17 05:23 Wheezing bilaterally; speaking in full sentences. Afebrile. - Medical Decision Making 04/08/17 05:24 Rx in the ER with nebs and prednisone, and mag sulfate and terbutaline 04/08/17 06:53 Home with иван
[2017-04-08] MEDS ORDERED: predniSONE 20 MG TABLET (UD) PO ONE (02:43)
[2017-04-08] MEDS: ALBUTEROL SO4 2.5/IPRATROPIUM 0.5 INH SOL 3 ML VIAL.NEB. NEB SCH ×3 (02:45→03:52)
--- NOTE | 2017-04-08 03:04 | PDOC ---
History of Present Illness - General Chief Complaint: Asthma Stated Complaint: S.O.B. Time Seen by Provider: 04/08/17 02:41 - History of Present Illness Initial Comments: 04/08/17 02:54 Mr. Johnson is a 26 yo male w/ pmh of Asthma and Behcet Syndrome who presents c/ o a 1 day history of Asthma attack. He reports that starting yesterday he was experiencing some cough and runny nose with fever/chills, then today around 3 he started having difficulty breathing. He attempted to use his rescue inhaler at home but it was ineffective. He has never had to be intubated for asthma but was hospitalized "years ago." The patient denies headache and dizziness. Denies nausea, vomit, diarrhea and constipation. Denies dysuria, frequency, urgency and hematuria. Allergies: Avelox (moxifloxacin) Past History - Past Medical History Allergies/Adverse Reactions: Allergies Allergy/AdvReac Type Severity Reaction Status Date / Time moxifloxacin Allergy Severe Difficulty Verified 04/08/17 02:33 Breathing NSAIDS (Non-Steroidal Allergy Severe Difficulty Verified 04/08/17 02:33 Anti-Inflamma Breathing moxifloxacin HCl Allergy Verified 04/08/17 02:33 [From Avelox] Home Medications: Ambulatory Orders Albuterol 0.083% Nebulizer Ewelina [Ventolin 0.083% Nebulizer Soln -] 1 neb NEB Q4H #28 vial 09/19/16 Colchicine [Colcrys -] 0.6 mg PO BID #60 tablet 01/31/17 Prednisone [Deltasone -] 5 mg PO ASDIR #78 tab 01/31/17 Prednisone 40 mg PO DAILY #16 tablet 04/08/17 Asthma: Yes COPD: No - Surgical History Abdominal Surgery: Yes Appendectomy: Yes Cardiac Surgery: No Lung Surgery: Yes (LT LUNG/ Chest tube, ABSCESS) Neurologic Surgery: No - Immunization History Immunization Up to Date: Yes - Suicide/Smoking/Psychosocial Hx Smoking History: Never smoked Have you smoked in the past 12 months: No Number of Cigarettes Smoked Daily: 0 If you are a former smoker, when did you quit?: has not smoked for 3 days- but only smokes 1-2 cigarrettes per day. Cigars Per Day: 0 Information on smoking cessation initiated: No 'Breaking Loose' booklet given: 04/26/14 Hx Alcohol Use: No Drug/Substance Use Hx: No Substance Use Type: None Hx Substance Use Treatment: No Review of Systems - Review of Systems Comments:: As above. *Physical Exam - Vital Signs Last Vital Signs Temp Pulse Resp BP Pulse Ox 94 H 18 110/66 100 04/08/17 02:33 04/08/17 02:33 04/08/17 02:33 04/08/17 02:33 - Physical Exam Comments: 04/08/17 03:04 GENERAL: Awake, alert, and fully oriented, in no acute distress HEAD: No signs of trauma, normocephalic, atraumatic EYES: PERRLA, EOMI, sclera anicteric, conjunctiva clear ENT: Auricles normal inspection, hearing grossly normal, nares patent, oropharynx clear without exudates. Moist mucosa NECK: Normal ROM, supple, no lymphadenopathy, JVD, or masses LUNGS: +Diffusely wheezy in all lung mckeon. HEART: Regular rate and rhythm, normal S1 and S2, no murmurs, rubs or gallops, peripheral pulses normal and equal bilaterally. ABDOMEN: Soft, nontender, normoactive bowel sounds. No guarding, no rebound. No masses EXTREMITIES: Normal inspection, Normal range of motion, no edema. No clubbing or cyanosis. NEUROLOGICAL: Cranial nerves II through XII grossly intact. Normal speech, normal gait, no focal sensorimotor deficits SKIN: Warm, Dry, normal turgor, no rashes or lesions noted. ED Treatment Course - LABORATORY CBC & Chemistry Diagram: 04/08/17 03:40 04/08/17 03:40 Medical Decision Making - Medical Decision Making 04/08/17 05:07 Patient breathing much easier with resolution of pulmonary wheezes after several duonebs, prednisone 60mg, terbutaline, and mag sulfate. Will d/c patient to home w/ Rx for prednisone 40mg for 4 days. Patient agrees with plan and will follow-up outpatient as needed. *DC/Admit/Observation/Transfer Diagnosis at time of Disposition: Asthma Qualifiers: Asthma severity: unspecified severity Asthma persistence: unspecified Asthma complication type: unspecified Qualified Code(s): J45.909 - Unspecified asthma, uncomplicated - Discharge Dispostion Disposition: HOME - Prescriptions Prescriptions: Prednisone 40 mg PO DAILY #16 tablet - Referrals Referrals: Live Lopez MD [Primary Care Provider] - - Patient Instructions Printed Discharge Instructions: Asthma -- Adult Additional Instructions: Please return if any return of symptoms, fevers, chills, or other concerning symptoms. - Post Discharge Activity
[2017-04-08] MEDS ORDERED: predniSONE 20 MG TABLET (UD) ONE (03:12)
[2017-04-08] MEDS ORDERED: MAGNESIUM SULF 50% (8.12 MEQ/2 ML-1 GM VIAL) IVPB ONE (03:27)
[2017-04-08] MEDS ORDERED: TERBUTALINE SULFATE 1 MG/1 ML VIAL SQ ONE ×2 (03:28→04:11)
[2017-04-08] MEDS ORDERED: MAGNESIUM SULF 50% (8.12 MEQ/2 ML-1 GM VIAL) ONE (03:47)
[2017-04-08 03:51] LABS: BASOPHIL 0.4 % (0-2.0); EOSINOPHIL 3.3 % (0-4.5); MCHC 34.2 g/dl (32.0-35.9); MEAN CELL VOLUME 90.6 fl (80-96); MEAN PLT VOLUME 8.3 fl (7.5-11.1); NEUTROPHILS 75.9 % (42.8-82.8); PLATELET COUNT 244 K/MM3 (134-434); RDW 14.5 % (11.9-15.9); WHITE BLOOD COUNT 9.2 K/mm3 (4.0-10.0)
[2017-04-08 04:22] LABS: ALBUMIN 3.5 g/dl (3.4-5.0); ALK PHOS 48 U/L (45-117); ANION GAP 7 (8-16); BILIRUBIN,TOTAL 0.3 mg/dL (0.2-1.0); CO2 29 mmol/L (21-32); GLUCOSE,RANDOM 120 mg/dL (74-106); SGOT/AST 13 U/L (15-37); SGPT/ALT 19 U/L (12-78); TOT PROT 6.9 g/dl (6.4-8.2)
[2017-04-08] MEDS ORDERED: POTASSIUM CHLORIDE TABS 20 MEQ TABLET.ER (FP) PO ONE ×2 (04:56→05:04)
[2017-04-08] MEDS ORDERED: AZITHROMYCIN IVPB 500 MG in DEXTROSE 5%-WATER - 250 ML IVPB ONE (05:13)
[2017-04-08] MEDS ORDERED: ACETAMINOPHEN 325 MG TABLET (FP) PO ONE (05:14)
[2017-04-08] MEDS ORDERED: AZITHROMYCIN IVPB 250 ML IVPB ONE (05:15)
[2017-04-08 05:27] VITALS: TEMP 98.8
== END 2017-04-08 06:03 | disposition home or self-care (01) ==
LOC: JER 02:23
PROC: 3E023GC Introduction of Other Therapeutic Substance into Muscle, Percutaneous Approach (ICD-10-PCS; principal; 2017-04-08)
PROC: 3E0F7GC Introduction of Other Therapeutic Substance into Respiratory Tract, Via Natural or Artificial Opening (ICD-10-PCS; 2017-04-08)
PROC: 3E03329 Introduction of Other Anti-infective into Peripheral Vein, Percutaneous Approach (ICD-10-PCS; 2017-04-08)
PROC: 3E033GC Introduction of Other Therapeutic Substance into Peripheral Vein, Percutaneous Approach (ICD-10-PCS; 2017-04-08)
DX: J45.901 Unspecified asthma with (acute) exacerbation (principal)
CPT/HCPCS: 36415; 71020-TC; 80053; 85025; 99281-25

== ENCOUNTER 2018-01-22 15:30 | Emergency (ER) | payer SELFPAY ==
[2018-01-22 15:37] VITALS: BP 131/67; PULSE 84; TEMP 98.7; BMI 26.5
--- NOTE | 2018-01-22 15:42 | PDOC ---
Rapid Medical Evaluation Time Seen by Provider: 01/22/18 15:33 Medical Evaluation: Allergies Allergy/AdvReac Type Severity Reaction Status Date / Time moxifloxacin Allergy Severe Difficulty Verified 11/24/17 11:41 Breathing NSAIDS (Non-Steroidal Allergy Severe Difficulty Verified 11/24/17 11:41 Anti-Inflamma Breathing moxifloxacin HCl Allergy Verified 11/24/17 11:41 [From Avelox] 01/22/18 15:33 I have performed a brief in-person evaluation of this patient. The patient presents with a chief complaint of: H/o Behcet's disease ( inflammation of blood vessel-affects mouth, eyes, genitalia, skin, joints, digestive, vascular, brain), here w/ mouth pain, oral ulcers and eye brain, similar to prior flares. Ran out of his colchicine 1 month ago. No current PMD in [facility]. States condition is usually tx w/ steroids and colchicine Pertinent physical exam findings: ulcer to underside of tongue and posterior pharynx I have ordered the following:nothing The patient will proceed to the ED for further evaluation. Discharge Disposition - Diagnosis Mouth pain - Referrals - Patient Instructions - Post Discharge Activity
--- NOTE | 2018-01-22 16:08 | PDOC ---
History of Present Illness - General Chief Complaint: Eye Problem Stated Complaint: COLD SYMPTOMS Time Seen by Provider: 01/22/18 15:33 History Source: Patient Exam Limitations: No Limitations - History of Present Illness Initial Comments: 01/22/18 16:06 Pt states he ran out of colchicine and prednisone for chronic Bechet's disease. Pt followed by . Pt c/o bilateral eye redness, pain and sores in his mouth that are painful. pt denies fever or chills. Past History - Past Medical History Allergies/Adverse Reactions: Allergies Allergy/AdvReac Type Severity Reaction Status Date / Time moxifloxacin Allergy Severe Difficulty Verified 01/22/18 15:36 Breathing NSAIDS (Non-Steroidal Allergy Severe Difficulty Verified 01/22/18 15:36 Anti-Inflamma Breathing moxifloxacin HCl Allergy Verified 01/22/18 15:36 [From Avelox] Home Medications: Ambulatory Orders Colchicine 0.6 mg PO BID #30 tablet 01/22/18 Methylprednisolone [Medrol Dose Cameron] 4 mg PO ASDIR #21 tablet 01/22/18 Asthma: Yes COPD: No Other medical history: BEHCETS DISEASE - Surgical History Abdominal Surgery: Yes Appendectomy: Yes Cardiac Surgery: No Lung Surgery: Yes (LT LUNG/ Chest tube, ABSCESS) Neurologic Surgery: No - Immunization History Immunization Up to Date: Yes - Suicide/Smoking/Psychosocial Hx Smoking History: Never smoked Have you smoked in the past 12 months: No Number of Cigarettes Smoked Daily: 0 If you are a former smoker, when did you quit?: has not smoked for 3 days- but only smokes 1-2 cigarrettes per day. Cigars Per Day: 0 'Breaking Loose' booklet given: 04/26/14 Hx Alcohol Use: No Drug/Substance Use Hx: No Substance Use Type: None Hx Substance Use Treatment: No *Physical Exam - Vital Signs Last Vital Signs Temp Pulse Resp BP Pulse Ox 98.7 F 84 18 131/67 98 01/22/18 15:34 01/22/18 15:34 01/22/18 15:34 01/22/18 15:34 01/22/18 15:34 - Physical Exam General Appearance: Yes: Nourished, Appropriately Dressed HEENT: positive: EOMI, KEV, Other (bilateral sclera with erythema EOMI , under tounge with oral ulcer left side ) Neck: positive: Supple Respiratory/Chest: positive: Lungs Clear, Normal Breath Sounds Medical Decision Making - Medical Decision Making 01/22/18 16:14 cc: chronic inflammatory condition, ran out of colchicine and medrol dose pack pt having flare up of his Behcet disease pt followed by unable to see him until next week pt denies fever or chills no abd pain or chest pain will prescribe colchicine 0.6mg twice daily (pt confirmed the dosage) and medrol dose pack *DC/Admit/Observation/Transfer Diagnosis at time of Disposition: Mouth pain, Behcet's disease - Discharge Dispostion Disposition: HOME Condition at time of disposition: Good - Prescriptions Prescriptions: Colchicine 0.6 mg PO BID #30 tablet Methylprednisolone [Medrol Dose Cameron] 4 mg PO ASDIR #21 tablet - Referrals Referrals: Live Lopez MD [Staff Physician] - - Patient Instructions Additional Instructions: please follow with your primary care doctor for continued treatment and care return to ER for any worsening symptoms - Post Discharge Activity
== END 2018-01-22 16:23 | disposition home or self-care (01) ==
LOC: JERFT 15:30
DX: K13.79 Other lesions of oral mucosa (principal); J45.909 Unspecified asthma, uncomplicated; Z87.891 Personal history of nicotine dependence
CPT/HCPCS: 99281-25

== ENCOUNTER 2018-02-15 08:51 | Emergency (ER) | payer SELFPAY ==
[2018-02-15 09:11] VITALS: BP 100/51; PULSE 71; TEMP 97.7; BMI 26.5
--- NOTE | 2018-02-15 09:50 | PDOC ---
History of Present Illness - General Chief Complaint: Pain Stated Complaint: PAIN Time Seen by Provider: 02/15/18 09:29 History Source: Patient Exam Limitations: No Limitations - History of Present Illness Initial Comments: 02/15/18 10:48 27 yo M w/ a h/o behcet's disease, asthma comes in c/o a painful tongue lesion for the past month. He usually gets steroids for it but has not gotten a chance to see his doctor for it because he was in college. He was seen here 3 weeks ago , was given the medrol dosepack which did not help for him, he would prefer prednisone. NO other complaints today. NO fever/chills, no NVD, no cough, no CP , no difficulty breathing. NO change in PO intake, no decrease in urination. NO known sick contacts, no recent travel. Pt has gotten admitted in the past for Behcet flares but says that he does not need admission this time. Past History - Travel Traveled outside of the country in the last 30 days: No - Past Medical History Allergies/Adverse Reactions: Allergies Allergy/AdvReac Type Severity Reaction Status Date / Time moxifloxacin Allergy Severe Difficulty Verified 02/15/18 09:03 Breathing NSAIDS (Non-Steroidal Allergy Severe Difficulty Verified 02/15/18 09:03 Anti-Inflamma Breathing moxifloxacin HCl Allergy Verified 02/15/18 09:03 [From Avelox] Home Medications: Ambulatory Orders Colchicine 0.6 mg PO BID #30 tablet 01/22/18 Methylprednisolone [Medrol Dose Cameron] 4 mg PO ASDIR #21 tablet 01/22/18 Oxycodone HCl/Acetaminophen [Percocet 5-325 mg Tablet] 1 tab PO Q6H PRN #10 tablet MDD 4 02/15/18 Prednisone [Deltasone] See Taper PO DAILY 7 Days #14 tablet 02/15/18 Asthma: Yes COPD: No Other medical history: BEHCET'S DISEASE - Surgical History Abdominal Surgery: Yes Appendectomy: Yes Cardiac Surgery: No Lung Surgery: Yes (LT LUNG/ Chest tube, ABSCESS) Neurologic Surgery: No - Immunization History Immunization Up to Date: Yes - Suicide/Smoking/Psychosocial Hx Smoking History: Never smoked Have you smoked in the past 12 months: No Number of Cigarettes Smoked Daily: 0 If you are a former smoker, when did you quit?: has not smoked for 3 days- but only smokes 1-2 cigarrettes per day. Cigars Per Day: 0 Information on smoking cessation initiated: No 'Breaking Loose' booklet given: 04/26/14 Hx Alcohol Use: No Drug/Substance Use Hx: No Substance Use Type: None Hx Substance Use Treatment: No Review of Systems - Review of Systems Able to Perform ROS?: Yes Constitutional: No: Chills, Fever, Malaise, Night Sweats HEENTM: No: Eye Pain, Recent change in vision, Throat Pain Respiratory: No: Cough, Shortness of Breath Cardiac (ROS): No: Chest Pain, Palpitations, Chest Tightness ABD/GI: No: Diarrhea, Nausea, Vomiting, Abdominal cramping : No: Dysuria, Hematuria Musculoskeletal: No: Back Pain Integumentary: No: Rash Neurological: No: Headache, Numbness, Dizziness Psychiatric: No: Change in Appetite Endocrine: No: Unexplained Weight Loss *Physical Exam - Vital Signs Last Vital Signs Temp Pulse Resp BP Pulse Ox 97.7 F 71 18 100/51 L 100 02/15/18 09:04 02/15/18 09:04 02/15/18 09:04 02/15/18 09:04 02/15/18 09:04 - Physical Exam General Appearance: Yes: Nourished. No: Apparent Distress HEENT: positive: KEV, Normal Voice, Other ((+)plaque like lesion seen on the L lateral aspect of the tingue. No lesions anywhere else int he mouth/throat. ). negative: Pale Conjunctivae, Scleral Icterus (R), Scleral Icterus (L), Pharyngeal Erythema Neck: positive: Supple. negative: Decreased range of motion, Tender midline Respiratory/Chest: positive: Wheezing (very mild exp. wheezing diffusely). negative: Respiratory Distress, Accessory Muscle Use, Labored Respiration, Rapid RR, Decreased Breath Sounds, Crackles, Rhonchi Cardiovascular: positive: Regular Rhythm, Regular Rate Gastrointestinal/Abdominal: positive: Normal Bowel Sounds, Soft. negative: Tender Musculoskeletal: positive: Normal Inspection. negative: CVA Tenderness, Decreased Range of Motion Extremity: positive: Normal Capillary Refill, Normal Inspection, Normal Range of Motion. negative: Tender, Pedal Edema Integumentary: positive: Normal Color, Dry. negative: Jaundice, Rash Neurologic: positive: Fully Oriented, Alert, Normal Mood/Affect Medical Decision Making - Medical Decision Making 02/15/18 10:52 27 yo M here for a mouth lesion due to Behcet's flare, requesting a Rx for prednisone. He say sthat he will see Dr. Medrano or the [facility] this week, he will make an appointment. (+)incidental wheezing found on exam. Pt denies SOB, no CP, no difficluty breathing, O2sat WNLs. He takes daily asmanex. Prednisone will help with wheezing, he also has his rescue inhlaer. HE will follow u with his PMD Return for worsening/concerning symptoms. 02/15/18 20:41 *DC/Admit/Observation/Transfer Diagnosis at time of Disposition: Behcet's disease, Mouth lesion Asthma Qualifiers: Asthma severity: mild - Discharge Dispostion Disposition: HOME Condition at time of disposition: Stable Decision to Admit order: No - Prescriptions Prescriptions: Oxycodone HCl/Acetaminophen [Percocet 5-325 mg Tablet] 1 tab PO Q6H PRN #10 tablet MDD 4 PRN Reason: Oral Pain/Mouth Sores Prednisone [Deltasone] See Taper PO DAILY 7 Days #14 tablet - Referrals Referrals: Rambo Napoles MD [Staff Physician] - - Patient Instructions Additional Instructions: Please make an appointment with Dr. Medrano as soon as possible, within the next 2 days if possible. If symptoms worsen, please return to the ER. - Post Discharge Activity
== END 2018-02-15 10:35 | disposition home or self-care (01) ==
LOC: JERFT 08:51
DX: M35.2 Behcet's disease (principal); K13.79 Other lesions of oral mucosa; J45.909 Unspecified asthma, uncomplicated
CPT/HCPCS: 99281-25

== ENCOUNTER 2018-03-15 08:23 | Emergency (ER) | payer SELFPAY ==
[2018-03-15 08:33] VITALS: BP 110/58; PULSE 54; TEMP 98.2; BMI 25.0
--- NOTE | 2018-03-15 09:03 | PDOC ---
History of Present Illness - General Chief Complaint: Pain, Acute Stated Complaint: THROAT PAIN Time Seen by Provider: 03/15/18 08:48 History Source: Patient Exam Limitations: Clinical Condition - History of Present Illness Initial Comments: 03/15/18 08:57 Patient with history of behcet's disease present with complaint of sores in the mouth for 4 days which is typical of flareup of his disease. Patient does not have a PCP due to not have any insurance and needs treatment of his medication until his insurance kicks in next month. Patient denies any other symptoms Timing/Duration: other (4 days) Past History - Past Medical History Allergies/Adverse Reactions: Allergies Allergy/AdvReac Type Severity Reaction Status Date / Time moxifloxacin Allergy Severe Difficulty Verified 03/15/18 08:26 Breathing NSAIDS (Non-Steroidal Allergy Severe Difficulty Verified 03/15/18 08:26 Anti-Inflamma Breathing moxifloxacin HCl Allergy Verified 03/15/18 08:26 [From Avelox] Home Medications: Ambulatory Orders Colchicine 0.6 mg PO BID #30 tablet 01/22/18 Lidocaine 2% Viscous Oral [Xylocaine 2% Viscous Oral -] 2 ml PO Q6H #50 ml 03/15 Mometasone Furoate [Asmanex 220Mcg -] 1 inh IH BID 03/15/18 Oxycodone HCl/Acetaminophen [Percocet 5-325 mg Tablet] 1 tab PO Q6H PRN #5 tablet MDD 3 03/15/18 Prednisone [Prednisone 50 MG TABLETS] 50 mg PO DAILY #14 tablet 03/15/18 Asthma: Yes COPD: No Other medical history: behcet's syndrome - Surgical History Abdominal Surgery: Yes Appendectomy: Yes Cardiac Surgery: No Lung Surgery: Yes (LT LUNG/ Chest tube, ABSCESS) Neurologic Surgery: No - Immunization History Immunization Up to Date: Yes - Suicide/Smoking/Psychosocial Hx Smoking History: Former smoker Have you smoked in the past 12 months: No Number of Cigarettes Smoked Daily: 0 If you are a former smoker, when did you quit?: has not smoked for 3 days- but only smokes 1-2 cigarrettes per day. Cigars Per Day: 0 Information on smoking cessation initiated: No 'Breaking Loose' booklet given: 04/26/14 Hx Alcohol Use: No Drug/Substance Use Hx: No Substance Use Type: None Hx Substance Use Treatment: No Review of Systems - Review of Systems Able to Perform ROS?: Yes Is the patient limited Lithuanian proficient: No Constitutional: No: Chills, Fever HEENTM: Yes: See HPI, Mouth Pain (sores in mouth), Difficulty Swallowing. No: Eye Pain, Blurred Vision, Tearing, Recent change in vision, Double Vision, Cataracts, Ear Pain, Ocular Prothesis, Ear Discharge, Nose Pain, Nose Congestion , Tinnitus, Nose Bleeding, Hearing Loss, Throat Pain, Throat Swelling, Dental Problems, Mouth Swelling, Other Respiratory: No: See HPI, Cough, Orthopnea, Shortness of Breath, SOB with Exertion, SOB at Rest, Stridor, Wheezing, Productive cough, Hemoptysis, Other Cardiac (ROS): No: Symptoms Reported, See HPI, Chest Pain, Edema, Irregular Heart Rate, Lightheadedness, Palpitations, Syncope, Chest Tightness, Other ABD/GI: No: Abdominal Distended, Abd. Pain w/ defecation, Blood Streaked Bowels , Constipated, Diarrhea, Difficulty Swallowing, Nausea, Poor Appetite, Poor Fluid Intake, Rectal Bleeding, Vomiting, Indigestion, Abdominal cramping, Tarry Stools, Other All Other Systems: Reviewed and Negative *Physical Exam - Vital Signs Last Vital Signs Temp Pulse Resp BP Pulse Ox 98.2 F 54 L 14 110/58 L 100 03/15/18 08:30 03/15/18 08:30 03/15/18 08:30 03/15/18 08:30 03/15/18 08:30 - Physical Exam Comments: 03/15/18 08:59 GENERAL: Well developed, well nourished. Awake and alert. No acute distress. HEENT: Normocephalic, atraumatic. PERRLA, EOMI. No conjunctival pallor. Sclera are non- icteric. Moist mucous membranes. Oropharynx is clear. NECK: Supple. Full ROM. No JVD. Carotid pulses 2+ and symmetric, without bruits. No thyromegaly. No lymphadenopathy. CARDIOVASCULAR: Regular rate and rhythm. No murmurs, rubs, or gallops. Distal pulses are 2+ and symmetric. PULMONARY: No evidence of respiratory distress. Lungs clear to auscultation bilaterally. No wheezing, rales or rhonchi. ABDOMINAL: Soft. Non-tender. Non-distended. No rebound or guarding. No organomegaly. Normoactive bowel sounds. NEUROLOGICAL: Alert, awake, appropriate. Gait is normal without ataxia. PSYCHIATRIC: Cooperative. Good eye contact. Appropriate mood and affect. General Appearance: Yes: Nourished, Appropriately Dressed. No: Apparent Distress Medical Decision Making - Medical Decision Making 03/15/18 09:00 Patient with history of behcet disease presents with complaint of multiple sores and lateral which is very painful and typical of his betcet flareup. exam significant with mild superficial sores to roof of mouth. rapid strep and throat cx ordered. d/c home on prednisone and oral viscous lidocaine if negative strep 03/15/18 09:51 rapid strep neg *DC/Admit/Observation/Transfer Diagnosis at time of Disposition: Behcet's disease, Mucositis - Discharge Dispostion Disposition: HOME Condition at time of disposition: Stable Decision to Admit order: No - Prescriptions Prescriptions: Lidocaine 2% Viscous Oral [Xylocaine 2% Viscous Oral -] 2 ml PO Q6H #50 ml Oxycodone HCl/Acetaminophen [Percocet 5-325 mg Tablet] 1 tab PO Q6H PRN #5 tablet MDD 3 PRN Reason: severe pain Prednisone [Prednisone 50 MG TABLETS] 50 mg PO DAILY #14 tablet - Referrals Referrals: Filiberto Chavez MD [Staff Physician] - - Patient Instructions - Post Discharge Activity
== END 2018-03-15 10:08 | disposition home or self-care (01) ==
LOC: JERFT 08:23
DX: M35.2 Behcet's disease (principal); K12.30 Oral mucositis (ulcerative), unspecified
CPT/HCPCS: 87070; 87430; 99281-25

== ENCOUNTER 2018-05-07 09:09 | Emergency (ER) | payer SELFPAY ==
[2018-05-07 09:22] VITALS: BMI 25.8
--- NOTE | 2018-05-07 09:56 | PDOC ---
History of Present Illness - General Chief Complaint: Cold Symptoms Stated Complaint: FLU Symptoms Time Seen by Provider: 05/07/18 09:31 History Source: Patient - History of Present Illness Initial Comments: 05/07/18 10:00 27-year-old male with a Bachet disease complaining of lesions to right arm and throat with throat pain, frontal sinus pain. patient reports unable to eat or drink and had a syncopal episode last night. denies chest pain,, NVD, abdominal pain has been having subjective fevers at home. PMHX: BEchets disease, asthma Past History - Past Medical History Allergies/Adverse Reactions: Allergies Allergy/AdvReac Type Severity Reaction Status Date / Time moxifloxacin Allergy Severe Difficulty Verified 03/15/18 08:26 Breathing NSAIDS (Non-Steroidal Allergy Severe Difficulty Verified 03/15/18 08:26 Anti-Inflamma Breathing moxifloxacin HCl Allergy Verified 03/15/18 08:26 [From Avelox] Home Medications: Ambulatory Orders Amoxicillin/Potassium Clav [Augmentin 875-125 Tablet] 1 each PO BID 10 Days #20 tablet 05/07/18 Colchicine 0.6 mg PO BID 05/07/18 Mometasone Furoate [Asmanex] 0.135 gm IH BID 05/07/18 Prednisone [Prednisone 50 MG TABLETS] 50 mg PO DAILY #4 tablet 05/07/18 Pseudoephedrine HCl [Sudafed] 60 mg PO Q6H PRN #30 tablet 05/07/18 Asthma: Yes COPD: No Other medical history: BEHCETES - Surgical History Abdominal Surgery: Yes Appendectomy: Yes Cardiac Surgery: No Lung Surgery: Yes (LT LUNG/ Chest tube, ABSCESS) Neurologic Surgery: No - Immunization History Immunization Up to Date: Yes - Suicide/Smoking/Psychosocial Hx Smoking History: Never smoked Have you smoked in the past 12 months: No Number of Cigarettes Smoked Daily: 0 If you are a former smoker, when did you quit?: has not smoked for 3 days- but only smokes 1-2 cigarrettes per day. Cigars Per Day: 0 Information on smoking cessation initiated: No 'Breaking Loose' booklet given: 04/26/14 Hx Alcohol Use: No Drug/Substance Use Hx: No Substance Use Type: None Hx Substance Use Treatment: No *Physical Exam - Vital Signs Last Vital Signs Temp Pulse Resp BP Pulse Ox 98.0 F 72 18 137/59 L 97 01/02/19 09:18 05/07/18 09:18 05/07/18 09:18 05/07/18 09:18 05/07/18 09:18 - Physical Exam General Appearance: Yes: Appropriately Dressed HEENT: positive: Other (oral lesion , erythematous pharynx) Respiratory/Chest: positive: Lungs Clear, Normal Breath Sounds Extremity: positive: Other (lesions to right ) Moderate Sedation - Procedure Monitoring Vital Signs: Procedure Monitoring Vital Signs Temperature 98.0 F 05/07/18 09:18 Pulse Rate 72 05/07/18 09:18 Respiratory Rate 18 05/07/18 09:18 Blood Pressure 137/59 L 05/07/18 09:18 O2 Sat by Pulse Oximetry (%) 97 05/07/18 09:18 ED Treatment Course - LABORATORY CBC & Chemistry Diagram: 05/07/18 10:41 05/07/18 09:58 Medical Decision Making - Medical Decision Making 05/07/18 10:24 patient endorsed to the Main ER for further management of care. Dr. norwood will assume care for this patient. labs, ekg, chest xray ordered. *DC/Admit/Observation/Transfer Diagnosis at time of Disposition: Syncope and collapse, Mucositis, Behcet's disease Sinusitis Qualifiers: Sinusitis location: unspecified location Chronicity: acute Recurrence: recurrent Qualified Code(s): J01.91 - Acute recurrent sinusitis, unspecified - Discharge Dispostion Disposition: HOME Condition at time of disposition: Stable - Prescriptions Prescriptions: Amoxicillin/Potassium Clav [Augmentin 875-125 Tablet] 1 each PO BID 10 Days #20 tablet Prednisone [Prednisone 50 MG TABLETS] 50 mg PO DAILY #4 tablet Pseudoephedrine HCl [Sudafed] 60 mg PO Q6H PRN #30 tablet PRN Reason: congestion - Referrals Referrals: Live Lopez MD [Primary Care Provider] - - Patient Instructions Printed Discharge Instructions: Sinusitis (Alternative Therapy), DI for Sinusitis, DI for Viral Upper Respiratory Infection-Child Additional Instructions: Mr Johnson Thanks so much for coming in to the ER today You chest x ray is normal, your flu swab and strep swab are negative Please be sure to follow up with Dr Lopez within a few days (he knows that you were here today) Please take tylenol for pain, you can also try magic mouth wash (it may or may not help) Please continue Prednisone (you can start taking this tomorrow, you got steroids today already) If you feel that you are not able to properly hydrate yourself, or if you get any new symptoms, please be sure to return to the ER to be re assessed - Post Discharge Activity Forms/Work/School Notes: Back to Work
[2018-05-07] MEDS ORDERED: SODIUM CHLORIDE 1,000 ML IV STA ×2 (10:26→10:55)
[2018-05-07] MEDS ORDERED: ACETAMINOPHEN 1000 MG/100 ML VIAL (NON FORMULARY) IVPB ONE (10:55)
[2018-05-07] MEDS ORDERED: methylPREDNISolone NA SUCC 125 MG/2 ML VIAL ONE (10:56)
[2018-05-07] MEDS ORDERED: ACETAMINOPHEN INJECTION 100 ML IVPB ONE (10:56)
[2018-05-07] MEDS ORDERED: methylPREDNISolone NA SUCC 125 MG/2 ML VIAL IVPB ONE (10:58)
[2018-05-07 11:03] LABS: BASO % 0.6 % (0-2.0); EOS % 6.6 % (0-4.5); HEMATOCRIT 42.5 % (35.4-49); HEMOGLOBIN 14.9 GM/dL (11.7-16.9); LYMPH % 14.9 % (8-40); MCH 31.3 pg (25.7-33.7); MEAN CELL VOLUME 89.5 fl (80-96); MEAN PLT VOLUME 7.8 fl (7.5-11.1); MONO % 17.4 % (3.8-10.2); NEUT % 60.5 % (42.8-82.8); PLATELET COUNT 371 K/MM3 (134-434); RBC 4.75 M/mm3 (4.00-5.60); RDW 15.4 % (11.9-15.9); WHITE BLOOD COUNT 7.5 K/mm3 (4.0-10.0)
--- NOTE | 2018-05-07 11:03 | PDOC ---
History of Present Illness - General History Source: Patient Exam Limitations: No Limitations - History of Present Illness Initial Comments: 05/07/18 11:21 The patient is a 27 year old male, with a significant past medical history of asthma (prior intubation 2011), Behcets disease with recurrent mucositis, who presents to the emergency department one day s/p syncopal episode after at least three episodes of right epistaxis while at work with one week of associated oral lesions which he attributes to a Behcets flare, sore throat, fevers, chills, fatigue, decreased PO intake, and frontal headaches. He states he noticed is Behcets flare up about a week ago, however, reports his current combination of symptoms is unusual for just his Behcets. He reports a sore throat which started as right sided and is now bilateral with associated difficulty swallowing secondary to pain. He also reports an associated foul smelling mucus in the back of his throat. He reports a fever (Tmax 102F) two days ago and recurrent subjective fevers and chills since. He denies any PO intake for about 2-3 days secondary to his throat pain. He states he was at work yesterday when he developed frontal head pressure pain followed by three nose bleeds from his right nostril which reportedly stopped on its own. He states he had been feeling chills all day when he suddenly felt himself slowly fall to the floor. He states he woke up on the tiled floor. He states his coworkers were around during the syncope and helped him off the floor. He denies any head pain or injury. The patient denies chest pain, shortness of breath, headache and dizziness. The patient denies nausea, vomit, diarrhea and constipation. The patient denies dysuria, frequency, urgency and hematuria. Allergies: NSAIDS, moxifloxacin. Past surgical history: appendectomy Social history: denies toxic habits <Sandra Marin - Last Filed: 05/07/18 12:56> - General History Source: Patient Exam Limitations: No Limitations <Hannah Delgado - Last Filed: 05/09/18 07:40> - General Chief Complaint: Cold Symptoms Stated Complaint: FLU Symptoms Time Seen by Provider: 05/07/18 09:31 Past History <Sandra Marin - Last Filed: 05/07/18 12:56> - Past Medical History Asthma: Yes COPD: No Other medical history: BEHCETES - Surgical History Abdominal Surgery: Yes Appendectomy: Yes Cardiac Surgery: No Lung Surgery: Yes (LT LUNG/ Chest tube, ABSCESS) Neurologic Surgery: No - Immunization History Immunization Up to Date: Yes - Suicide/Smoking/Psychosocial Hx Smoking History: Never smoked Have you smoked in the past 12 months: No Number of Cigarettes Smoked Daily: 0 If you are a former smoker, when did you quit?: has not smoked for 3 days- but only smokes 1-2 cigarrettes per day. Cigars Per Day: 0 Information on smoking cessation initiated: No 'Breaking Loose' booklet given: 04/26/14 Hx Alcohol Use: No Drug/Substance Use Hx: No Substance Use Type: None Hx Substance Use Treatment: No <Hannah Delgado - Last Filed: 05/09/18 07:40> - Past Medical History Allergies/Adverse Reactions: Allergies Allergy/AdvReac Type Severity Reaction Status Date / Time moxifloxacin Allergy Severe Difficulty Verified 03/15/18 08:26 Breathing NSAIDS (Non-Steroidal Allergy Severe Difficulty Verified 03/15/18 08:26 Anti-Inflamma Breathing moxifloxacin HCl Allergy Verified 03/15/18 08:26 [From Avelox] Home Medications: Ambulatory Orders Amoxicillin/Potassium Clav [Augmentin 875-125 Tablet] 1 each PO BID 10 Days #20 tablet 05/07/18 Colchicine 0.6 mg PO BID 05/07/18 Mometasone Furoate [Asmanex] 0.135 gm IH BID 05/07/18 Prednisone [Prednisone 50 MG TABLETS] 50 mg PO DAILY #4 tablet 05/07/18 Pseudoephedrine HCl [Sudafed] 60 mg PO Q6H PRN #30 tablet 05/07/18 Review of Systems - Review of Systems Able to Perform ROS?: Yes Comments:: 05/07/18 11:21 CONSTITUTIONAL: (+) fever, chills, fatigue, decreased appetite, EYES: Absent: visual changes ENT: (+) sore throat, difficulty swallowing, oral lesions, frontal sinus pressure. Absent: ear pain CARDIOVASCULAR: Absent: chest pain, no palpitations RESPIRATORY: Absent: cough, no SOB GASTROINTESTINAL: Absent: abdominal pain, no nausea, no vomiting, no constipation, no diarrhea GENITOURINARY: Absent: dysuria, no frequency, no hematuria MUSCULOSKELETAL: Absent: back pain, no arthralgia, no myalgia SKIN: (+) lesions to arms. Absent: rash NEURO: (+) s/p syncope, frontal headache, <Sandra Marin - Last Filed: 05/07/18 12:56> *Physical Exam - Vital Signs Last Vital Signs Temp Pulse Resp BP Pulse Ox 98.0 F 72 18 137/59 L 97 05/07/18 09:18 05/07/18 09:18 05/07/18 09:18 05/07/18 09:18 05/07/18 09:18 - Physical Exam Comments: 05/07/18 11:23 GENERAL: The patient is in no acute distress. HEAD: (+) frontal sinus tenderness on palpation. Normal with no signs of trauma. EYES: PERRLA, EOMI, sclera anicteric, conjunctiva clear. ENT: (+) erythema to posterior oropharynx. Ulcer to left side of hard palate. No tonsillar enlargement. No exudate. Ears normal, nares patent, Moist mucous membranes. NECK: Normal range of motion, supple without lymphadenopathy, JVD, or masses. LUNGS: Breath sounds equal, clear to auscultation bilaterally. No wheezes, and no crackles. HEART:Regular rate and rhythm, normal S1 and S2 without murmur, rub or gallop. ABDOMEN: Soft, nontender, normoactive bowel sounds. No guarding, no rebound. No masses palpable. EXTREMITIES: Normal range of motion, no edema. No clubbing or cyanosis. No erythema, or tenderness. NEUROLOGICAL: Cranial nerves II through XII grossly intact. Normal speech. No focal neurological deficits. MUSCULOSKELETAL: Back non-tender to palpation, no CVA tenderness SKIN: (+) several blisters of bilateral forearm and upper back. Warm, Dry, normal turgor, <Sandra Marin - Last Filed: 05/07/18 12:56> - Vital Signs Last Vital Signs Temp Pulse Resp BP Pulse Ox 98.0 F 72 18 137/59 L 97 05/07/18 09:18 05/07/18 09:18 05/07/18 09:18 05/07/18 09:18 05/07/18 09:18 <Hannah Delgado - Last Filed: 05/09/18 07:40> Moderate Sedation - Procedure Monitoring Vital Signs: Procedure Monitoring Vital Signs Temperature 98.0 F 05/07/18 09:18 Pulse Rate 72 05/07/18 09:18 Respiratory Rate 18 05/07/18 09:18 Blood Pressure 137/59 L 05/07/18 09:18 O2 Sat by Pulse Oximetry (%) 97 05/07/18 09:18 <Sandra Marin - Last Filed: 05/07/18 12:56> - Procedure Monitoring Vital Signs: Procedure Monitoring Vital Signs Temperature 98.0 F 05/07/18 09:18 Pulse Rate 72 05/07/18 09:18 Respiratory Rate 18 05/07/18 09:18 Blood Pressure 137/59 L 05/07/18 09:18 O2 Sat by Pulse Oximetry (%) 97 05/07/18 09:18 <Hannah Delgado - Last Filed: 05/09/18 07:40> ED Treatment Course - LABORATORY CBC & Chemistry Diagram: 05/07/18 10:41 05/07/18 09:58 - ADDITIONAL ORDERS Additional order review: 05/07/18 10:41 RBC 4.75 MCV 89.5 MCHC 35.0 RDW 15.4 MPV 7.8 Neutrophils % 60.5 D Lymphocytes % 14.9 D Monocytes % 17.4 H Eosinophils % 6.6 H D Basophils % 0.6 - RADIOLOGY Radiograph Interpretation: EXAM#: TYPE/EXAM: RESULT: [id number] CT/HEAD CT WITHOUT CONTRAST Syncope. CT scan of the brain without intravenous contrast. Compared to prior CT scan of the head dated 06/24/2014 The ventricles and basal cisterns appear unremarkable. A small cavum septum lucidum is again seen. No mass lesion, gross acute infarct or intracranial hemorrhage are identified. Mild mucosal thickening is partially opacifying the included left ethmoid air cells, superiorly. Otherwise, the visualized paranasal sinuses and mastoid air cells are well- aerated. The calvarium is intact. Impression: No significant interval change. No evidence of a focal intracranial lesion or hemorrhage seen. Reported By: Enriqueta Hsu MD 05/07/18 120 - Medications Given in the ED: ED Medications Discontinued Medications Generic Name Dose Route Start Last Admin Trade Name Freq PRN Reason Stop Dose Admin Acetaminophen 1,000 mg 05/07/18 10:55 05/07/18 11:08 Ofirmev Injection - IVPB 05/07/18 10:56 1,000 mg ONCE ONE Administration Methylprednisolone Sodium Succinate 125 mg 05/07/18 10:58 05/07/18 11:08 Solu-Medrol - IVPB 05/07/18 10:59 125 mg ONCE ONE Administration <Sandra Marin - Last Filed: 05/07/18 12:56> - LABORATORY CBC & Chemistry Diagram: 05/07/18 10:41 05/07/18 09:58 <Hannah Delgado - Last Filed: 05/09/18 07:40> Medical Decision Making - Medical Decision Making 05/07/18 12:56 Dr. Lopez was called at this time and the patient's case was discussed. <Sandra Marin - Last Filed: 05/07/18 12:56> - Medical Decision Making 05/07/18 11:03 27 yo M with h/o Bechet's with 1 week flair not with upper respiratory complaints Tmax 102 No vocal change, no trismus No wheezing No stridor Will do: Bechet's - steroids, IVF Syncope - likely related to dehydration (due to poor po intake) URI - Flu swab and rapid strep and CXR Tylenol ordered Solumedrol ordered RE assess 05/07/18 11:33 Laboratory Tests 05/07/18 05/07/18 05/07/18 10:04 10:41 10:50 WBC 7.5 Hgb 14.9 Hct 42.5 Plt Count 371 D Neutrophils % 60.5 D Lymphocytes % 14.9 D C-Reactive Protein 11.4 H Influenza A (Rapid) Negative Influenza B (Rapid) Negative 05/07/18 12:07 Laboratory Tests 05/07/18 05/07/18 09:58 10:50 Sodium 138 Potassium 5.2 H Chloride 103 Carbon Dioxide 27 BUN 8 Creatinine 1.3 Random Glucose 63 L AST 35 ALT 51 Creatine Kinase 233 Troponin I < 0.02 Group A Strep Rapid Negative 05/07/18 12:08 CT - no intracranial hemorrhage, ethmoid air cells opacified Augmentin initiated Sudafed ordered 05/07/18 12:54 CXR nml Case reviewed with Dr. Lopez He will see this patient as an outpatient Will plan to discharge to home Pt states he feels better Will encourage po intake If he is unable to do this, he will return to the ER and be admitted 05/09/18 07:40 <Hannah Delgado - Last Filed: 05/09/18 07:40> *DC/Admit/Observation/Transfer - Attestations Scribe Attestion: 05/07/18 11:25 Documentation prepared by Sandra Marin, acting as medical economics consultant for Hannah Delgado MD <Sandra Marin - Last Filed: 05/07/18 12:56> - Discharge Dispostion Decision to Admit order: No <Hannah Delgado - Last Filed: 05/09/18 07:40> Diagnosis at time of Disposition: Syncope and collapse, Mucositis, Behcet's disease Sinusitis Qualifiers: Sinusitis location: unspecified location Chronicity: acute Recurrence: recurrent Qualified Code(s): J01.91 - Acute recurrent sinusitis, unspecified - Discharge Dispostion Disposition: HOME Condition at time of disposition: Stable - Prescriptions Prescriptions: Amoxicillin/Potassium Clav [Augmentin 875-125 Tablet] 1 each PO BID 10 Days #20 tablet Prednisone [Prednisone 50 MG TABLETS] 50 mg PO DAILY #4 tablet Pseudoephedrine HCl [Sudafed] 60 mg PO Q6H PRN #30 tablet PRN Reason: congestion - Referrals Referrals: Live Lopez MD [Primary Care Provider] - - Patient Instructions Printed Discharge Instructions: Sinusitis (Alternative Therapy), DI for Sinusitis, DI for Viral Upper Respiratory Infection-Child Additional Instructions: Mr Johnson Thanks so much for coming in to the ER today You chest x ray is normal, your flu swab and strep swab are negative Please be sure to follow up with Dr Lopez within a few days (he knows that you were here today) Please take tylenol for pain, you can also try magic mouth wash (it may or may not help) Please continue Prednisone (you can start taking this tomorrow, you got steroids today already) If you feel that you are not able to properly hydrate yourself, or if you get any new symptoms, please be sure to return to the ER to be re assessed - Post Discharge Activity Forms/Work/School Notes: Back to Work
[2018-05-07 11:37] LABS: INR 1.27 (0.83-1.09)
[2018-05-07 11:57] LABS: ALBUMIN 3.6 g/dl (3.4-5.0); ALK PHOS 36 U/L (45-117); ANION GAP 7 MMOL/L (8-16); BLOOD UREA NITROGEN 8 mg/dL (7-18); CALCIUM 9.1 mg/dL (8.5-10.1); CHLORIDE 103 mmol/L (98-107); CO2 27 mmol/L (21-32); CREATININE 1.3 mg/dL (0.55-1.3); GLUCOSE,RANDOM 63 mg/dL (74-106); MAGNESIUM 2.2 mg/dL (1.8-2.4); POTASSIUM 5.2 mmol/L (3.5-5.1); SGOT/AST 35 U/L (15-37); SGPT/ALT 51 U/L (13-61); SODIUM 138 mmol/L (136-145); TOT PROT 8.2 g/dl (6.4-8.2)
[2018-05-07 13:09] VITALS: BP 114/59; PULSE 77; TEMP 98.6
[2018-05-07] MEDS ORDERED: AMOX TR/POT CLAV 875MG/125MG TABLETS (FP) PO ONE (13:10)
--- NOTE | 2018-05-07 18:50 | EKG ---
Test Reason : Blood Pressure : / mmHG Vent. Rate : 079 BPM Atrial Rate : 079 BPM P-R Int : 144 ms QRS Dur : 078 ms QT Int : 350 ms P-R-T Axes : 060 067 051 degrees QTc Int : 401 ms POOR DATA QUALITY, INTERPRETATION MAY BE ADVERSELY AFFECTED NORMAL SINUS RHYTHM WITH SINUS ARRHYTHMIA EARLY REPOLARIZATION NORMAL ECG WHEN COMPARED WITH ECG OF 27-JAN-2017 23:55, NO SIGNIFICANT CHANGE WAS FOUND Confirmed by AMALIA MCCAIN MD ([id number]) on 05/07/2018 6:50:01 PM Referred By: Confirmed By:AMALIA MCCAIN MD
== END 2018-05-07 13:35 | disposition home or self-care (01) ==
LOC: JERFT 09:09 → JER 09:09
PROC: 3E033NZ Introduction of Analgesics, Hypnotics, Sedatives into Peripheral Vein, Percutaneous Approach (ICD-10-PCS; principal; 2018-05-07)
PROC: 3E033GC Introduction of Other Therapeutic Substance into Peripheral Vein, Percutaneous Approach (ICD-10-PCS; 2018-05-07)
PROC: 3E0337Z Introduction of Electrolytic and Water Balance Substance into Peripheral Vein, Percutaneous Approach (ICD-10-PCS; 2018-05-07)
DX: R55 Syncope and collapse (principal); K12.30 Oral mucositis (ulcerative), unspecified; M35.2 Behcet's disease
CPT/HCPCS: 36415; 70450-TC; 71046-TC-FY; 80053; 82550; 82553; 83735; 84484; 85025; 85610; 86140; 87070; 87804; 87880; 93005; 93010; 99283-25; J0131; J7030

== ENCOUNTER 2019-05-29 13:46 | Emergency (ER) | payer OTHER ==
[2019-05-29 14:10] VITALS: BMI 25.1
--- NOTE | 2019-05-29 14:10 | PDOC ---
Rapid Medical Evaluation Time Seen by Provider: 05/29/19 14:05 Medical Evaluation: Allergies Allergy/AdvReac Type Severity Reaction Status Date / Time moxifloxacin Allergy Severe Difficulty Verified 03/15/18 08:26 Breathing NSAIDS (Non-Steroidal Allergy Severe Difficulty Verified 03/15/18 08:26 Anti-Inflamma Breathing moxifloxacin HCl Allergy Verified 03/15/18 08:26 [From Avelox] 05/29/19 14:06 Pt c/o:asthma exac, febrile, cough, myalgia, hx behcots (sores in moth) unable to tolerate fluids solids currently Pt on brief exam: tachy, febrile, wheezing jeremiah r>l Pt ordered for: douneb, prednisone iv tylenol , cxr, and influenza Pt to proceed to the ED 05/29/19 14:16 Discharge Disposition - Diagnosis Behcet's disease, Viral syndrome Fever Qualifiers: Fever type: unspecified Qualified Code(s): R50.9 - Fever, unspecified - Discharge Dispostion Disposition: HOME Condition at time of disposition: Improved - Prescriptions Prescriptions: Lidocaine 2% Viscous Oral [Xylocaine 2% Viscous Oral -] 10 ml PO Q6H PRN #200 ml PRN Reason: throat pain Methylprednisolone [Medrol Dose Cameron] 4 mg PO ASDIR #21 tablet - Referrals Referrals: Mishel Oglesby MD [Primary Care Provider] - - Patient Instructions Printed Discharge Instructions: DI for Viral Syndrome Additional Instructions: Your labs and chest x-rays is normal. Your symptoms is likely from viral infection. Take prescribed medications as prescribed. Increase fluid intake. Continue with Tylenol as needed for fever. Follow-up with PCP - Post Discharge Activity
[2019-05-29] MEDS ORDERED: methylPREDNISolone NA SUCC 125 MG/2 ML VIAL IVPB ONE (14:14)
[2019-05-29] MEDS ORDERED: SODIUM CHLORIDE 1,000 ML IV STA ×2 (14:14→15:32)
[2019-05-29] MEDS: ALBUTEROL SO4 2.5/IPRATROPIUM 0.5 INH SOL 3 ML VIAL.NEB. NEB SCH ×4 (14:15→15:00)
[2019-05-29] MEDS ORDERED: IBUPROFEN 600 MG TABLET (FP) PO ONE ×2 (14:15→14:20)
[2019-05-29] MEDS ORDERED: ACETAMINOPHEN 1000 MG/100 ML VIAL (NON FORMULARY) IVPB ONE (14:16)
[2019-05-29] MEDS ORDERED: ALBUTEROL SO4 2.5/IPRATROPIUM 0.5 INH SOL 3 ML VIAL.NEB. NEB ONE (14:19)
[2019-05-29] MEDS ORDERED: methylPREDNISolone NA SUCC 125 MG/2 ML VIAL ONE (14:20)
[2019-05-29] MEDS ORDERED: ACETAMINOPHEN INJECTION 100 ML IVPB ONE (14:35)
[2019-05-29 14:41] LABS: BASO % 0.3 % (0-2.0); EOS % 0.6 % (0-4.5); HEMATOCRIT 44.6 % (35.4-49); HEMOGLOBIN 15.3 GM/dL (11.7-16.9); LYMPH % 7.6 % (8-40); MCH 30.9 pg (25.7-33.7); MCHC 34.2 g/dl (32.0-35.9); MEAN CELL VOLUME 90.2 fl (80-96); MEAN PLT VOLUME 8.3 fl (7.5-11.1); MONO % 20.2 % (3.8-10.2); NEUT % 71.3 % (42.8-82.8); PLATELET COUNT 172 K/MM3 (134-434); RBC 4.94 M/mm3 (4.00-5.60); RDW 14.9 % (11.9-15.9); WHITE BLOOD COUNT 7.1 K/mm3 (4.0-10.0)
[2019-05-29 15:26] LABS: ALBUMIN 3.7 g/dl (3.4-5.0); BILIRUBIN,TOTAL 0.8 mg/dL (0.2-1); BLOOD UREA NITROGEN 10.9 mg/dL (7-18); CALCIUM 8.6 mg/dL (8.5-10.1); CREATININE 1.1 mg/dL (0.55-1.3); MAGNESIUM 1.6 mg/dL (1.8-2.4); POTASSIUM 3.3 mmol/L (3.5-5.1); TOT PROT 7.1 g/dl (6.4-8.2)
[2019-05-29] MEDS ORDERED: morphine CARPU-JECT 2 MG/1 ML DISP.SYRIN IVPUSH ONE (15:32)
[2019-05-29] MEDS ORDERED: MORPHINE SULFATE 2 MG/ML VIAL ONE (15:40)
--- NOTE | 2019-05-29 15:52 | PDOC ---
History of Present Illness - General History Source: Patient Exam Limitations: Clinical Condition - History of Present Illness Initial Comments: 05/29/19 15:42 Patient with past medical history of behcet disease presented with complaint of 2 days history of nasal congestion, sores in the mouth, fever, chills, body aches and unable to eat due to pain in the throat. Patient reported he every time prescribed flareup. Denies nausea, vomiting, diarrhea, constipation. Patient reported he gets flareup every time he gets sick which is usually treated with steroids and pain meds. Patient has not taken anything for symptoms Is this a multiple visit Asthma Patient?: No Timing/Duration: other (3 days) <Suhas Cintron - Last Filed: 05/30/19 12:50> <Edu Burnett - Last Filed: 06/01/19 14:08> - General Chief Complaint: Asthma Stated Complaint: SOB Time Seen by Provider: 05/29/19 14:05 Past History - Past Medical History Asthma: Yes COPD: No Other medical history: bhcots syndrome - Surgical History Abdominal Surgery: Yes Appendectomy: Yes Cardiac Surgery: No Lung Surgery: Yes (LT LUNG/ Chest tube, ABSCESS 2018) Neurologic Surgery: No - Immunization History Immunization Up to Date: Yes - Psycho Social/Smoking Cessation Hx Smoking History: Never smoked Have you smoked in the past 12 months: No Number of Cigarettes Smoked Daily: 0 If you are a former smoker, when did you quit?: has not smoked for 3 days- but only smokes 1-2 cigarrettes per day. Cigars Per Day: 0 'Breaking Loose' booklet given: 04/26/14 Hx Alcohol Use: No Drug/Substance Use Hx: No Substance Use Type: None Hx Substance Use Treatment: No <Suhas Cintron - Last Filed: 05/30/19 12:50> <Edu Burnett - Last Filed: 06/01/19 14:08> - Past Medical History Allergies/Adverse Reactions: Allergies Allergy/AdvReac Type Severity Reaction Status Date / Time moxifloxacin Allergy Severe Difficulty Verified 05/29/19 14:08 Breathing NSAIDS (Non-Steroidal Allergy Severe Difficulty Verified 05/29/19 14:08 Anti-Inflamma Breathing Home Medications: Ambulatory Orders Amoxicillin/Potassium Clav [Augmentin 875-125 Tablet] 1 each PO BID 10 Days #20 tablet 05/07/18 Colchicine 0.6 mg PO BID 05/07/18 Mometasone Furoate [Asmanex] 0.135 gm IH BID 05/07/18 Prednisone [Prednisone 50 MG TABLETS] 50 mg PO DAILY #4 tablet 05/07/18 Pseudoephedrine HCl [Sudafed] 60 mg PO Q6H PRN #30 tablet 05/07/18 Lidocaine 2% Viscous Oral [Xylocaine 2% Viscous Oral -] 10 ml PO Q6H PRN #200 ml 05/29/19 Methylprednisolone [Medrol Dose Cameron] 4 mg PO ASDIR #21 tablet 05/29/19 Review of Systems - Review of Systems Able to Perform ROS?: Yes Is the patient limited Vincentian proficient: No Constitutional: Yes: Chills, Fever, Malaise HEENTM: Yes: Symptoms Reported, See HPI, Throat Pain, Difficulty Swallowing. No : Eye Pain, Blurred Vision, Tearing, Recent change in vision, Double Vision, Cataracts, Ear Pain, Ocular Prothesis, Ear Discharge, Nose Pain, Nose Congestion , Tinnitus, Nose Bleeding, Hearing Loss, Throat Swelling, Mouth Pain, Dental Problems, Mouth Swelling, Other Respiratory: No: Symptoms reported, See HPI, Cough, Orthopnea, Shortness of Breath, SOB with Exertion, SOB at Rest, Stridor, Wheezing, Productive cough, Hemoptysis, Other Cardiac (ROS): No: Symptoms Reported, See HPI, Chest Pain, Edema, Irregular Heart Rate, Lightheadedness, Palpitations, Syncope, Chest Tightness, Other ABD/GI: Yes: Symptoms Reported, See HPI, Nausea, Poor Appetite. No: Abdominal Distended, Abd. Pain w/ defecation, Blood Streaked Bowels, Constipated, Diarrhea , Difficulty Swallowing, Rectal Bleeding, Vomiting, Abdominal cramping : No: Symptoms Reported Musculoskeletal: No: Symptoms Reported Integumentary: No: Symptoms Reported Neurological: No: Symptoms reported All Other Systems: Reviewed and Negative <Suhas Cintron - Last Filed: 05/30/19 12:50> *Physical Exam - Vital Signs Last Vital Signs Temp Pulse Resp BP Pulse Ox 100.9 F H 108 H 16 104/56 L 96 05/29/19 14:08 05/29/19 14:08 05/29/19 14:08 05/29/19 14:08 05/29/19 14:08 - Physical Exam 05/29/19 16:02 GENERAL: Well developed, well nourished. Awake and alert. No acute distress. HEENT: Multiple tiny vesicular sores to oropharynx. Normocephalic, atraumatic. PERRLA, EOMI. No conjunctival pallor. Sclera are non-icteric. Moist mucous membranes. NECK: Supple. Full ROM. CARDIOVASCULAR: Regular rate and rhythm. No murmurs, rubs, or gallops. Distal pulses are 2+ and symmetric. PULMONARY: No evidence of respiratory distress. Lungs clear to auscultation bilaterally. No wheezing, rales or rhonchi. ABDOMINAL: Soft. Non-tender. Non-distended. No rebound or guarding. No organomegaly. Normoactive bowel sounds. MUSCULOSKELETAL Normal range of motion at all joints. SKIN: Warm and dry. Normal capillary refill. No rashes. No jaundice. NEUROLOGICAL: Alert, awake, appropriate. Gait is normal without ataxia. PSYCHIATRIC: Cooperative. Good eye contact. Appropriate mood General Appearance: Yes: Nourished, Appropriately Dressed. No: Apparent Distress <Suhas Cintron - Last Filed: 05/30/19 12:50> - Vital Signs Last Vital Signs Temp Pulse Resp BP Pulse Ox 99.8 F H 72 19 115/64 99 05/29/19 16:17 05/29/19 16:23 05/29/19 16:23 05/29/19 16:23 05/29/19 16:23 <Edu Burnett - Last Filed: 06/01/19 14:08> ED Treatment Course - LABORATORY CBC & Chemistry Diagram: 05/29/19 14:30 05/29/19 14:30 - ADDITIONAL ORDERS Additional order review: Laboratory Results 05/29/19 14:30 Sodium 137 Potassium 3.3 L Chloride 102 Carbon Dioxide 27 Anion Gap 9 BUN 10.9 Creatinine 1.1 Est GFR (CKD-EPI)AfAm 106.06 Est GFR (CKD-EPI)NonAf 91.51 Random Glucose 94 Calcium 8.6 Magnesium 1.6 L Total Bilirubin 0.8 AST 14 L ALT 20 Alkaline Phosphatase 45 Total Protein 7.1 Albumin 3.7 05/29/19 14:30 RBC 4.94 MCV 90.2 MCHC 34.2 RDW 14.9 MPV 8.3 Neutrophils % 71.3 Lymphocytes % 7.6 L D Monocytes % 20.2 H Eosinophils % 0.6 D Basophils % 0.3 - Medications Given in the ED: ED Medications Discontinued Medications Generic Name Dose Route Start Last Admin Trade Name Abraham PRN Reason Stop Dose Admin Acetaminophen 1,000 mg 05/29/19 14:16 05/29/19 14:40 Ofirmev Injection - IVPB 05/29/19 14:17 1,000 mg ONCE ONE Administration Albuterol/Ipratropium 1 amp 05/29/19 14:15 05/29/19 15:00 Duoneb - NEB 05/29/19 15:01 1 amp Q15M SADIE Administration Sodium Chloride 1,000 mls @ 1,000 mls/hr 05/29/19 14:14 05/29/19 14:32 Normal Saline - IV 05/29/19 15:13 1,000 mls/hr ASDIR STA Administration Ibuprofen 600 mg 05/29/19 14:15 05/29/19 14:33 Motrin - PO 05/29/19 14:16 Not Given ONCE ONE Methylprednisolone Sodium Succinate 125 mg 05/29/19 14:14 05/29/19 14:32 Solu-Medrol - IVPB 05/29/19 14:15 125 mg ONCE ONE Administration Morphine Sulfate 2 mg 05/29/19 15:32 05/29/19 15:39 Morphine Injection - IVPUSH 05/29/19 15:33 2 mg ONCE ONE Administration <AbdulazizSuhas Atif - Last Filed: 05/30/19 12:50> - LABORATORY CBC & Chemistry Diagram: 05/29/19 14:30 05/29/19 14:30 - ADDITIONAL ORDERS Additional order review: 05/29/19 14:30 RBC 4.94 MCV 90.2 MCHC 34.2 RDW 14.9 MPV 8.3 Neutrophils % 71.3 Lymphocytes % 7.6 L D Monocytes % 20.2 H Eosinophils % 0.6 D Basophils % 0.3 - Medications Given in the ED: ED Medications Discontinued Medications Generic Name Dose Route Start Last Admin Trade Name Abraham PRN Reason Stop Dose Admin Acetaminophen 1,000 mg 05/29/19 14:16 05/29/19 14:40 Ofirmev Injection - IVPB 05/29/19 14:17 1,000 mg ONCE ONE Administration Albuterol/Ipratropium 1 amp 05/29/19 14:15 05/29/19 15:00 Duoneb - NEB 05/29/19 15:01 1 amp Q15M SADIE Administration Sodium Chloride 1,000 mls @ 1,000 mls/hr 05/29/19 14:14 05/29/19 14:32 Normal Saline - IV 05/29/19 15:13 1,000 mls/hr ASDIR STA Administration Sodium Chloride 1,000 mls @ 1,000 mls/hr 05/29/19 15:32 05/29/19 15:35 Normal Saline - IV 05/29/19 16:31 1,000 mls/hr ASDIR STA Administration Ibuprofen 600 mg 05/29/19 14:15 05/29/19 14:33 Motrin - PO 05/29/19 14:16 Not Given ONCE ONE Methylprednisolone Sodium Succinate 125 mg 05/29/19 14:14 05/29/19 14:32 Solu-Medrol - IVPB 05/29/19 14:15 125 mg ONCE ONE Administration Morphine Sulfate 2 mg 05/29/19 15:32 05/29/19 15:39 Morphine Injection - IVPUSH 05/29/19 15:33 2 mg ONCE ONE Administration <Edu Burnett - Last Filed: 06/01/19 14:08> Medical Decision Making - Medical Decision Making 05/29/19 16:04 Patient with past medical history of behcet disease presented with complaint of 2 days history of nasal congestion, sores in the mouth, fever, chills, body aches and unable to eat due to pain in the throat. Patient reported he every time prescribed flareup. Denies nausea, vomiting, diarrhea, constipation. Patient reported he gets flareup every time he gets sick which is usually treated with steroids and pain meds. Patient has not taken anything for symptoms Exam significant for tiny sores to oropharynx with fever of 100.9 F Patient in no acute distress. Mild expiratory wheeze diffusely with no acute respiratory distress. CBC, CMP lab unremarkable. Influenza lab negative. Patient symptoms likely viral syndrome. Patient pending checks x-ray 05/30/19 12:50 CXR shows no acute abnormality. Patient symptoms likely viral syndrome and stable for outpatient tx on medrolpak for URI and asthma and viscous oral lidocaine for mouth sores with PCP f/u <Suhas Cintron - Last Filed: 05/30/19 12:50> - Medical Decision Making 06/01/19 14:08 I reviewed the case of the mid-level practitioner and was available for consultation while in the emergency department <LexEdu - Last Filed: 06/01/19 14:08> Discharge - Discharge Information Problems reviewed: Yes - Admission No <Suhas Cintron - Last Filed: 05/30/19 12:50> <Edu Burnett - Last Filed: 06/01/19 14:08> - Discharge Information Clinical Impression/Diagnosis: Behcet's disease, Viral syndrome Fever Qualifiers: Fever type: unspecified Qualified Code(s): R50.9 - Fever, unspecified Condition: Improved Disposition: HOME - Additional Discharge Information Prescriptions: Lidocaine 2% Viscous Oral [Xylocaine 2% Viscous Oral -] 10 ml PO Q6H PRN #200 ml PRN Reason: throat pain Methylprednisolone [Medrol Dose Cameron] 4 mg PO ASDIR #21 tablet - Follow up/Referral Referrals: Mishel Oglesby MD [Primary Care Provider] - - Patient Discharge Instructions Patient Printed Discharge Instructions: DI for Viral Syndrome Additional Instructions: Your labs and chest x-rays is normal. Your symptoms is likely from viral infection. Take prescribed medications as prescribed. Increase fluid intake. Continue with Tylenol as needed for fever. Follow-up with PCP
[2019-05-29 16:17] VITALS: TEMP 99.8
[2019-05-29 16:24] VITALS: BP 115/64; PULSE 72
[2019-05-29 16:37] LABS: PLATELET ESTIMATE ADEQUATE
== END 2019-05-29 16:25 | disposition home or self-care (01) ==
LOC: JER 13:46
PROC: 3E033NZ Introduction of Analgesics, Hypnotics, Sedatives into Peripheral Vein, Percutaneous Approach (ICD-10-PCS; principal; 2019-05-29)
PROC: 3E0F7GC Introduction of Other Therapeutic Substance into Respiratory Tract, Via Natural or Artificial Opening (ICD-10-PCS; 2019-05-29)
PROC: 3E033GC Introduction of Other Therapeutic Substance into Peripheral Vein, Percutaneous Approach (ICD-10-PCS; 2019-05-29)
PROC: 3E033NZ Introduction of Analgesics, Hypnotics, Sedatives into Peripheral Vein, Percutaneous Approach (ICD-10-PCS; 2019-05-29)
DX: M35.2 Behcet's disease (principal); B34.9 Viral infection, unspecified; R50.9 Fever, unspecified; Z88.8 Allergy status to other drugs, medicaments and biological substances
CPT/HCPCS: 36415; 71046-TC-FY; 80053; 83735; 85025; 87804; 99282-25; J0131; J7030

== ENCOUNTER 2019-12-02 23:47 | Emergency (ER) | payer SELFPAY ==
[2019-12-02] MEDS ORDERED: ALBUTEROL SO4 2.5/IPRATROPIUM 0.5 INH SOL 3 ML VIAL.NEB. NEB ONE (23:59)
[2019-12-03 00:05] VITALS: TEMP 98.8; BMI 25.1
[2019-12-03] MEDS ORDERED: methylPREDNISolone NA SUCC 125 MG/2 ML VIAL IVPB ONE (00:19)
[2019-12-03] MEDS ORDERED: predniSONE 20 MG TABLET (UD) PO ONE (00:21)
--- NOTE | 2019-12-03 00:27 | PDOC ---
History of Present Illness - General Chief Complaint: Asthma Stated Complaint: ASTHMA Time Seen by Provider: 12/03/19 00:13 - History of Present Illness Initial Comments: The pt is a 29M w/ a history of asthma and Behcet's syndrome who presents for evaluation of 2 days of worsening asthma symptoms. The pt has been using his inhaler with minimal relief. He also reports 1-2 days of a Behcet's flair. He reports rash/blistering of his b/l shins, upper lip, and right tongue. He denies fevers/chills, TORRES, vision changes, chest pain, N/V, dysuria, hematuira, diarrhea, or sick contacts. 12/03/19 00:21 Past History - Medical History Allergies/Adverse Reactions: Allergies Allergy/AdvReac Type Severity Reaction Status Date / Time moxifloxacin Allergy Severe Difficulty Verified 12/02/19 23:55 Breathing NSAIDS (Non-Steroidal Allergy Severe Difficulty Verified 12/02/19 23:55 Anti-Inflamma Breathing Home Medications: Ambulatory Orders Amoxicillin/Potassium Clav [Augmentin 875-125 Tablet] 1 each PO BID 10 Days #20 tablet 05/07/18 Colchicine 0.6 mg PO BID 05/07/18 Mometasone Furoate [Asmanex] 0.135 gm IH BID 05/07/18 Prednisone [Prednisone 50 MG TABLETS] 50 mg PO DAILY #4 tablet 05/07/18 Pseudoephedrine HCl [Sudafed] 60 mg PO Q6H PRN #30 tablet 05/07/18 Lidocaine 2% Viscous Oral [Xylocaine 2% Viscous Oral -] 10 ml PO Q6H PRN #200 ml 05/29/19 Methylprednisolone [Medrol Dose Cameron] 4 mg PO ASDIR #21 tablet 05/29/19 Clotrimazole/Betamet Diprop [Lotrisone -] 1 applic TP BID #1 tube 10/30/19 Colchicine 0.6 mg PO DAILY #10 tablet 10/30/19 Prednisone [Prednisone 50 MG TABLETS] 50 mg PO DAILY 10 Days #10 tablet 10/30/19 predniSONE [Deltasone -] 10 mg PO DAILY #7 tablet 10/30/19 Albuterol Sulfate Inhaler - [Ventolin Hfa Inhaler -] 2 inh PO Q4H #1 inh 12/03/19 predniSONE [Deltasone -] 40 mg PO DAILY #6 tablet 12/03/19 predniSONE [Deltasone -] 40 mg PO DAILY #8 tablet 12/03/19 Asthma: Yes COPD: No - Surgical History Abdominal Surgery: Yes Appendectomy: Yes Cardiac Surgery: No Lung Surgery: Yes (LT LUNG/ Chest tube, ABSCESS 2018) Neurologic Surgery: No - Immunization History Immunization Up to Date: Yes - Psycho-Social/Smoking History Smoking History: Unknown if ever smoked Have you smoked in the past 12 months: No Number of Cigarettes Smoked Daily: 0 If you are a former smoker, when did you quit?: has not smoked for 3 days- but only smokes 1-2 cigarrettes per day. Cigars Per Day: 0 Information on smoking cessation initiated: No 'Breaking Loose' booklet given: 04/26/14 - Substance Abuse Hx (Audit-C & DAST Scrn) How often the patient has a drink containing alcohol: Never Score: In Men: 4 or > Positive; In Women: 3 or > Positive: 0 Screen Result (Pos requires Nsg. Audit-10AR): Negative In the last yr the pt used illegal drug/Rx for NonMed reason: No Score: Yes response is considered Positive: 0 Screen Result (Positive result requires Nsg. DAST-10): Negative Review of Systems - Review of Systems Able to Perform ROS?: Yes Comments:: GENERAL/CONSTITUTIONAL: No fever or chills. No weakness HEAD, EYES, EARS, NOSE AND THROAT: No change in vision. No change in hearing. No sore throat CARDIOVASCULAR: No chest pain RESPIRATORY: +Wheezing/cough GASTROINTESTINAL: No nausea, vomiting, diarrhea or constipation GENITOURINARY: No dysuria, frequency, or change in urination MUSCULOSKELETAL: No joint or muscle swelling or pain. No neck or back pain SKIN: +Bahcet rash NEUROLOGIC: No headache, vertigo, loss of consciousness, or change in strength/sensation ENDOCRINE: No increased thirst. No abnormal weight change HEMATOLOGIC/LYMPHATIC: No anemia, easy bleeding, or history of blood clots ALLERGIC/IMMUNOLOGIC: No hives or skin allergy 12/03/19 01:02 Is the patient limited Kinyarwanda proficient: No *Physical Exam - Vital Signs Last Vital Signs Temp Pulse Resp BP Pulse Ox 98.8 F 90 20 116/77 98 12/02/19 23:55 12/02/19 23:55 12/02/19 23:55 12/02/19 23:55 12/02/19 23:55 - Physical Exam GENERAL: Awake, alert, and oriented to person/place/time, in no acute distress HEAD: No signs of trauma, normocephalic, atraumatic EYES: PERRLA, EOMI, sclera anicteric, conjunctiva clear ENT: Hearing grossly normal, nares patent, oropharynx clear without exudates. Moist mucosa LUNGS: No distress, speaks in full sentences, diffuse wheezing b/l throughout HEART: Regular rate and rhythm, normal S1 and S2, no murmurs appreciated, peripheral pulses normal and equal bilaterally ABDOMEN: Soft, nontender, normoactive bowel sounds. No guarding, no rebound EXTREMITIES: Normal inspection, Normal range of motion, no edema. No clubbing or cyanosis NEUROLOGICAL: Cranial nerves II through XII grossly intact. Normal speech, normal gait, no focal sensorimotor deficits SKIN: Warm, Dry 12/03/19 01:04 ED Treatment Course - RADIOLOGY Radiology Studies Ordered: Category Date Time Status CHEST X-RAY PORTABLE* [RAD] Stat Radiology 12/03/19 00:21 Ordered Medical Decision Making - Medical Decision Making The pt is a 29M w/ a history of asthma and Behcet's syndrome who presents for evaluation of 2 days of worsening asthma symptoms and Behcet's flair ED Course Pt given duo-neb x3, Decadron 10mg IM once Pt given Tylenol for pain CXR w/o acute pathology Pt w/ improved symptoms Wheezing improved Pt not hypoxic or tachypnic ECG w/ NSR; HR 93; narrow QRS, intervals wnl; no GRZEGORZ Rx for ventolin and prednisone 40mg PO (3 days) sent to pt's pharmacy Plan for D/C w/ PCP f/u Discharge instructions and return precautions given Pt in agreement and verbalized understanding Dispo: Home 12/03/19 06:08 Discharge - Discharge Information Problems reviewed: Yes Clinical Impression/Diagnosis: Behcet's syndrome Asthma exacerbation Qualifiers: Asthma severity: mild Asthma persistence: intermittent Qualified Code(s): J45.21 - Mild intermittent asthma with (acute) exacerbation Condition: Stable Disposition: HOME - Admission No - Additional Discharge Information Prescriptions: predniSONE [Deltasone -] 40 mg PO DAILY #8 tablet predniSONE [Deltasone -] 40 mg PO DAILY #6 tablet Albuterol Sulfate Inhaler - [Ventolin Hfa Inhaler -] 2 inh PO Q4H #1 inh - Follow up/Referral Referrals: Live Lopez MD [Primary Care Provider] - - Patient Discharge Instructions Patient Printed Discharge Instructions: Asthma -- Adult Additional Instructions: You were seen in the Emergency Department for evaluation of an asthma exacerbation. An inhaler and prednisone was sent to your pharmacy. Start taking the Prednisone on 12/05/2019, 40mg daily for 3 days. Review the handouts provided at discharge. Follow up with your primary care provider within a week. May use the albuterol inhaler every 4-6 hours as needed for cough and breathing to clear up your airways. Return precautions include respiratory distress, difficulty breathing, cyanosis, chest pain, lethargy, confusion, dehydration, high fevers or pain. - Post Discharge Activity
--- NOTE | 2019-12-03 00:39 | PDOC ---
Attending Attestation - Resident Resident Name: Geovanny Mchugh - ED Attending Attestation I have performed the following: I have examined & evaluated the patient, The case was reviewed & discussed with the resident, I agree w/resident's findings & plan - HPI HPI: 12/03/19 00:37 29M w/ a history of asthma and Behcet's syndrome who presents with asthma exacerbation x few days, shortness of breath and chest tightness. likely triggered from being exposed to dogs which he is allergic to. no cough no fever no infectious sx. no n/v/d, abdominal pain no sick contacts or travel history 12/05/19 19:36 12/05/19 19:36 - Physicial Exam PE: 12/03/19 00:37 General: Well appearing, awake and alert, NAD. HEENT: NCAT, PERRL, EOMI, clear conjunctiva, anicteric, moist mucous membranes, clear oropharynx, no oral lesions.. upper lip with ulcer/behcet's flare Neck: neck supple, FROM Resp: Bilateral wheezing CVS: RRR, no murmurs, 2+ peripheral pulses throughout, no peripheral edema Abdomen: soft, NTND, no rebound or guarding. No CVAT. Back: nontender, normal inspection and ROM] MSK: no edema, BARNETT x4, ROM intact. No clubbing or cyanosis. normal bulk and tone. Extremities: no calf tenderness Neuro: alert, oriented appropriately; no focal neurologic deficits Skin: warm and well perfused, cap refill <2 sec, normal color 12/05/19 19:37 - Medical Decision Making 12/03/19 00:37 Vital Signs Temp Pulse Resp BP Pulse Ox 98.8 F 90 20 116/77 98 12/02/19 23:55 12/02/19 23:55 12/02/19 23:55 12/02/19 23:55 12/02/19 23:55 vitals reviewed wnl no fever, no systemic findings b/l wheezing, asthma exacerbation likely doubt PE doubt cardiac EKG is sinus rhythm cxr _unremarkable no signs of infection. albuterol prednisone reassess feels improved given dexamethasone here albuterol nebs with improvement also has behcet's flare to his upper lip, which is painful, given analgesia here predisone to be initiated after 2 days for asthma and behcet's DC stable condition, return precautions, PCP followup Heart Score/ECG Review #1 ECG reviewed & interpreted by me at: 23:55 General ECG Interpretation: Sinus Rhythm, Normal Rate, Normal Intervals 12/03/19 00:38 EKG normal sinus rhythm 93 bpm for text, no interval abnormalities, narrow QRS, ST and T wave segments and morphology normal. Nonspecific T wave abnormalities Discharge - Discharge Information Problems reviewed: Yes Clinical Impression/Diagnosis: Behcet's syndrome Asthma exacerbation Qualifiers: Asthma severity: mild Asthma persistence: intermittent Qualified Code(s): J45.21 - Mild intermittent asthma with (acute) exacerbation Condition: Stable Disposition: HOME - Admission No - Additional Discharge Information Prescriptions: predniSONE [Deltasone -] 40 mg PO DAILY #8 tablet predniSONE [Deltasone -] 40 mg PO DAILY #6 tablet Albuterol Sulfate Inhaler - [Ventolin Hfa Inhaler -] 2 inh PO Q4H #1 inh - Follow up/Referral Referrals: Live Lopez MD [Primary Care Provider] - - Patient Discharge Instructions Patient Printed Discharge Instructions: Asthma -- Adult Additional Instructions: You were seen in the Emergency Department for evaluation of an asthma exacerbation. An inhaler and prednisone was sent to your pharmacy. Start taking the Prednisone on 12/05/2019, 40mg daily for 3 days. Review the handouts provided at discharge. Follow up with your primary care provider within a week. May use the albuterol inhaler every 4-6 hours as needed for cough and breathing to clear up your airways. Return precautions include respiratory distress, difficulty breathing, cyanosis, chest pain, lethargy, confusion, dehydration, high fevers or pain. - Post Discharge Activity
[2019-12-03] MEDS ORDERED: predniSONE 20 MG TABLET (UD) ONE (01:37)
[2019-12-03] MEDS ORDERED: ALBUTEROL SO4 2.5/IPRATROPIUM 0.5 INH SOL 3 ML VIAL.NEB. NEB ONE ×3 (01:37→03:02)
[2019-12-03] MEDS: ALBUTEROL SO4 2.5/IPRATROPIUM 0.5 INH SOL 3 ML VIAL.NEB. NEB SCH ×2 (01:40→02:16)
[2019-12-03] MEDS ORDERED: DEXAMETHASONE SOD PHOSPHATE 10 MG/1 ML VIAL IM ONE (01:44)
[2019-12-03] MEDS ORDERED: DEXAMETHASONE SOD PHOSPHATE 10 MG/1 ML VIAL ONE (01:58)
[2019-12-03] MEDS ORDERED: ALBUTEROL SO4 2.5/IPRATROPIUM 0.5 INH SOL 3 ML VIAL.NEB. NEB SCH (02:30)
[2019-12-03] MEDS ORDERED: ACETAMINOPHEN 325 MG TABLET (FP) PO ONE (03:03)
[2019-12-03] MEDS ORDERED: ACETAMINOPHEN 160 MG/5 ML *Children Solution PO ONE (03:29)
[2019-12-03] MEDS ORDERED: ACETAMINOPHEN 650 MG/20.3 ML ORAL SOLUTION (CUPS) ONE (03:45)
[2019-12-03 07:27] VITALS: BP 123/77; PULSE 80
--- NOTE | 2019-12-03 11:31 | EKG ---
Test Reason : Blood Pressure : / mmHG Vent. Rate : 095 BPM Atrial Rate : 095 BPM P-R Int : 160 ms QRS Dur : 088 ms QT Int : 330 ms P-R-T Axes : 074 078 040 degrees QTc Int : 414 ms POOR DATA QUALITY, INTERPRETATION MAY BE ADVERSELY AFFECTED NORMAL SINUS RHYTHM BIATRIAL ENLARGEMENT NONSPECIFIC ST AND T WAVE ABNORMALITY ABNORMAL ECG WHEN COMPARED WITH ECG OF 21-AUG-2019 01:00, NONSPECIFIC T WAVE ABNORMALITY HAS REPLACED INVERTED T WAVES IN INFERIOR LEADS Confirmed by SIMA REID MD ([id number]) on 12/03/2019 11:31:24 AM Referred By: Confirmed By:SIMA REID MD
== END 2019-12-03 04:10 | disposition home or self-care (01) ==
LOC: JER 23:47
PROC: 3E033GC Introduction of Other Therapeutic Substance into Peripheral Vein, Percutaneous Approach (ICD-10-PCS; principal; 2019-12-02)
PROC: 3E0234Z Introduction of Serum, Toxoid and Vaccine into Muscle, Percutaneous Approach (ICD-10-PCS; 2019-12-02)
PROC: 3E023GC Introduction of Other Therapeutic Substance into Muscle, Percutaneous Approach (ICD-10-PCS; 2019-12-02)
DX: J45.21 Mild intermittent asthma with (acute) exacerbation (principal)
CPT/HCPCS: 71045-TC-FY; 93005; 93010; 99284-25; J1100

== ENCOUNTER 2020-03-18 17:08 | Emergency (ER) | payer SELFPAY ==
[2020-03-18 17:28] VITALS: BP 116/67; PULSE 66; TEMP 97.7; BMI 24.3
[2020-03-18] MEDS ORDERED: predniSONE 20 MG TABLET (UD) PO ONE (18:01)
[2020-03-18] MEDS ORDERED: ALBUTEROL SO4 2.5/IPRATROPIUM 0.5 INH SOL 3 ML VIAL.NEB. NEB ONE (18:17)
[2020-03-18] MEDS ORDERED: predniSONE 20 MG TABLET (UD) ONE (18:17)
[2020-03-18] MEDS: ALBUTEROL SO4 2.5/IPRATROPIUM 0.5 INH SOL 3 ML VIAL.NEB. NEB SCH ×4 (18:21→18:56)
== END 2020-03-18 19:46 | disposition home or self-care (01) ==
LOC: JERFT 17:08
PROC: 3E0F7GC Introduction of Other Therapeutic Substance into Respiratory Tract, Via Natural or Artificial Opening (ICD-10-PCS; principal; 2020-03-18)
DX: J45.41 Moderate persistent asthma with (acute) exacerbation (principal)
CPT/HCPCS: 71046-TC-FY; 93005; 93010; 99284-25

== ENCOUNTER 2020-03-24 22:01 | Inpatient (IN) | payer SELFPAY ==
[2020-03-24 22:06] VITALS: BMI 24.3
[2020-03-24] MEDS ORDERED: DEXAMETHASONE 4 MG TABLET (FP) PO ONE (22:13)
[2020-03-24] MEDS ORDERED: ALBUTEROL SO4 2.5/IPRATROPIUM 0.5 INH SOL 3 ML VIAL.NEB. NEB SCH (22:15)
[2020-03-24] MEDS ORDERED: ALBUTEROL SO4 2.5/IPRATROPIUM 0.5 INH SOL 3 ML VIAL.NEB. NEB ONE (22:17)
[2020-03-24] MEDS ORDERED: MAGNESIUM SULF 50% (8.12 MEQ/2 ML-1 GM VIAL) IVPB ONE (22:25)
[2020-03-24] MEDS ORDERED: MAGNESIUM SULFATE IN WATER 2 GM/50 ML IVPB IVPB ONE (22:30)
[2020-03-24] MEDS: ALBUTEROL SO4 2.5/IPRATROPIUM 0.5 INH SOL 3 ML VIAL.NEB. NEB PRN ×2 (22:52→23:52)
[2020-03-24 22:58] LABS: EOS % 3.4 % (0-4.5); HEMATOCRIT 45.2 % (35.4-49); HEMOGLOBIN 15.2 GM/dL (11.7-16.9); LYMPH % 18.6 % (8-40); MCH 30.7 pg (25.7-33.7); MCHC 33.7 g/dl (32.0-35.9); MEAN CELL VOLUME 91.2 fl (80-96); MEAN PLT VOLUME 8.3 fl (7.5-11.1); MONO % 7.6 % (3.8-10.2); NEUT % 69.4 % (42.8-82.8); PLATELET COUNT 210 K/MM3 (134-434); RBC 4.96 M/mm3 (4.00-5.60); WHITE BLOOD COUNT 9.5 K/mm3 (4.0-10.0)
[2020-03-24 23:06] LABS: INR 1.1 (0.83-1.09); PROTHROMBIN TIME (PATIENT) 13.5 SEC (9.7-13.0)
[2020-03-24] MEDS ORDERED: methylPREDNISolone NA SUCC 125 MG/2 ML VIAL IVPB ONE (23:11)
[2020-03-24 23:28] LABS: POTASSIUM 3.2 mmol/L (3.5-5.1)
[2020-03-24] MEDS ORDERED: methylPREDNISolone NA SUCC 125 MG/2 ML VIAL ONE (23:30)
[2020-03-24 23:31] LABS: ALBUMIN 3.9 g/dl (3.4-5.0); BLOOD UREA NITROGEN 7.8 mg/dL (7-18); CALCIUM 8.9 mg/dL (8.5-10.1)
[2020-03-24] MEDS ORDERED: ALBUTEROL SO4 0.083% IH SOL 2.5 MG/3 ML VIAL.NEB. NEB ONE (23:34)
[2020-03-24 23:35] LABS: BILIRUBIN,TOTAL 0.3 mg/dL (0.2-1); TOT PROT 7.4 g/dl (6.4-8.2)
[2020-03-24] MEDS ORDERED: POTASSIUM CHLORIDE ORAL LIQUID 20 MEQ/15 ML PO ONE (23:42)
[2020-03-24] MEDS ORDERED: POTASSIUM CHLORIDE ORAL LIQUID 20 MEQ/15 ML ONE (23:55)
[2020-03-25] MEDS: ALBUTEROL SO4 2.5/IPRATROPIUM 0.5 INH SOL 3 ML VIAL.NEB. NEB PRN ×2 (00:20→00:56)
[2020-03-25] MEDS ORDERED: AZITHROMYCIN IVPB 500 MG/250 ML BAG IVPB SCH (01:01)
[2020-03-25] MEDS ORDERED: ALBUTEROL SO4 2.5/IPRATROPIUM 0.5 INH SOL 3 ML VIAL.NEB. NEB ONE ×2 (01:10→03:01)
[2020-03-25] MEDS ORDERED: AZITHROMYCIN IVPB 500 MG/250 ML BAG IVPB ONE (01:10)
[2020-03-25] MEDS ORDERED: MONTELUKAST NA 10 MG TABLET PO SCH (01:15)
[2020-03-25] MEDS: ALBUTEROL SO4 2.5/IPRATROPIUM 0.5 INH SOL 3 ML VIAL.NEB. NEB SCH ×2 (01:16→03:12)
[2020-03-25] MEDS ORDERED: MONTELUKAST NA 10 MG TABLET ONE (01:24)
[2020-03-25] MEDS ORDERED: MAGNESIUM SULF 50% (8.12 MEQ/2 ML-1 GM VIAL) IVPB ONE (01:49)
[2020-03-25] MEDS ORDERED: POTASSIUM CHLORIDE TABS 20 MEQ TABLET.ER (FP) PO ONE ×2 (01:49→01:58)
[2020-03-25] MEDS ORDERED: MAGNESIUM SULFATE IN WATER 2 GM/50 ML IVPB IVPB ONE (01:59)
[2020-03-25] MEDS ORDERED: KCL 10 MEQ IVPB 10 MEQ/100 ML INFUS.BAG IVPB ONE ×3 (01:59→04:11)
[2020-03-25] MEDS: KCL 10 MEQ IVPB 10 MEQ/100 ML INFUS.BAG IVPB SCH ×3 (02:18→04:18)
[2020-03-25 02:20] LABS: ARTERIAL BLD GAS O2 SATURATION 95.6 mmHg (95-98); ARTERIAL BLOOD GAS BASE EXCESS -2.4 mmol/L (-2-2); ARTERIAL BLOOD GAS PO2 79.7 mmHg (80-100); ARTERIAL BLOOD GAS pH 7.379 (7.350-7.450)
[2020-03-25 02:24] LABS: ALLENS TEST POSITIVE
[2020-03-25 04:08] LABS: MAGNESIUM 1.8 mg/dL (1.8-2.4)
[2020-03-25] MEDS ORDERED: methylPREDNISolone NA SUCC 40 MG/1 ML VIAL ONE (04:11)
[2020-03-25] MEDS ORDERED: ALPRAZolam 0.25 MG TABLET PO PRN (04:31)
[2020-03-25] MEDS ORDERED: ALPRAZolam 0.25 MG TABLET ONE (04:57)
[2020-03-25 05:27] VITALS: BP 132/79; PULSE 108; TEMP 98.4
[2020-03-25] MEDS ORDERED: methylPREDNISolone NA SUCC 125 MG/2 ML VIAL IVPUSH SCH (06:00)
[2020-03-25] MEDS ORDERED: BUDESONIDE/FORMETEROL FUMARATE 80/4.5 mcg INHALER IH SCH (10:00)
[2020-03-25] MEDS ORDERED: AZITHROMYCIN IVPB 500 MG in DEXTROSE 5%-WATER - 250 ML IVPB SCH (10:00)
== END 2020-03-25 05:30 | disposition left against medical advice (07) | DRG 141 ==
LOC: JER 22:01 → JERBED 22:26
PROVIDERS: ADMIT Internal Medicine; ATTEND Internal Medicine
DX: J45.41 Moderate persistent asthma with (acute) exacerbation (principal); E87.6 Hypokalemia; M35.2 Behcet's disease; F17.210 Nicotine dependence, cigarettes, uncomplicated
CPT/HCPCS: 36415; 36600; 71045-TC-FY; 80053; 82803; 83735; 85025; 85610; 93005; 93010; 99285-25; C9803; U0003

== ENCOUNTER 2020-05-01 18:10 | Emergency (ER) | payer SELFPAY ==
[2020-05-01 18:19] VITALS: TEMP 97; BMI 25.1
[2020-05-01] MEDS ORDERED: ACETAMINOPHEN 1000 MG/100 ML VIAL (NON FORMULARY) IVPB ONE (18:57)
[2020-05-01] MEDS ORDERED: ACETAMINOPHEN INJECTION 100 ML IVPB ONE (19:00)
[2020-05-01 19:28] LABS: BASO % 0.5 % (0-2.0); EOS % 0.1 % (0-4.5); HEMATOCRIT 45.5 % (35.4-49); HEMOGLOBIN 15.3 GM/dL (11.7-16.9); LYMPH % 18.6 % (8-40); MCH 30.9 pg (25.7-33.7); MCHC 33.6 g/dl (32.0-35.9); MEAN CELL VOLUME 92.1 fl (80-96); MEAN PLT VOLUME 9.1 fl (7.5-11.1); MONO % 12.4 % (3.8-10.2); NEUT % 68.4 % (42.8-82.8); PLATELET COUNT 269 K/MM3 (134-434); RBC 4.94 M/mm3 (4.00-5.60); RDW 14.9 % (11.9-15.9); WHITE BLOOD COUNT 12.8 K/mm3 (4.0-10.0)
[2020-05-01 19:41] LABS: INR 1.34 (0.83-1.09); PROTHROMBIN TIME (PATIENT) 16.4 SEC (9.7-13.0)
[2020-05-01 19:44] LABS: ACTIVATED PTT 26.5 SECONDS (25.2-36.5)
[2020-05-01 19:46] LABS: CHLORIDE 105 mmol/L (98-107); POTASSIUM 3.5 mmol/L (3.5-5.1); SODIUM 139 mmol/L (136-145)
[2020-05-01 19:47] LABS: ALBUMIN 4.1 g/dl (3.4-5.0); CALCIUM 8.8 mg/dL (8.5-10.1)
[2020-05-01 19:49] LABS: ANION GAP 8 MMOL/L (8-16); BLOOD UREA NITROGEN 14.5 mg/dL (7-18); CO2 27 mmol/L (21-32); GLUCOSE,RANDOM 91 mg/dL (74-106)
[2020-05-01 19:51] LABS: CREATININE 1.2 mg/dL (0.55-1.3); SGOT/AST 14 U/L (15-37); SGPT/ALT 11 U/L (13-61)
[2020-05-01 19:52] LABS: BILIRUBIN,TOTAL 0.4 mg/dL (0.2-1); TOT PROT 7.7 g/dl (6.4-8.2)
[2020-05-01 19:55] LABS: ALK PHOS 45 U/L (45-117)
[2020-05-01] MEDS ORDERED: CYCLOBENZAPRINE HCL 10 MG TABLET (FP) PO ONE ×2 (20:19→21:20)
[2020-05-01] MEDS ORDERED: CYCLOBENZAPRINE HCL 10 MG TABLET (FP) ONE (21:26)
[2020-05-01 21:32] VITALS: BP 120/72; PULSE 56
== END 2020-05-01 22:05 | disposition home or self-care (01) ==
LOC: JER 18:10
PROC: 3E033NZ Introduction of Analgesics, Hypnotics, Sedatives into Peripheral Vein, Percutaneous Approach (ICD-10-PCS; principal; 2020-05-01)
PROC: 3E033GC Introduction of Other Therapeutic Substance into Peripheral Vein, Percutaneous Approach (ICD-10-PCS; 2020-05-01)
DX: R07.9 Chest pain, unspecified (principal); R06.02 Shortness of breath; V89.2XXA Person injured in unspecified motor-vehicle accident, traffic, initial encounter
CPT/HCPCS: 36415; 70450-TC; 71045-TC-FY; 71275-TC; 72125-TC; 72128-TC; 73030-TC-LT-FY; 74174-TC; 80053; 84484; 85025; 85610; 85730; 86850; 86900; 86901; 93005; 93010; 99285-25; Q9967

== ENCOUNTER 2020-08-08 09:36 | Emergency (ER) | payer OTHER ==
[2020-08-08 09:49] VITALS: BP 100/68; PULSE 66; TEMP 98.4; BMI 24.3
[2020-08-08] MEDS ORDERED: predniSONE 20 MG TABLET (UD) PO ONE (10:36)
[2020-08-08] MEDS ORDERED: predniSONE 20 MG TABLET (UD) ONE (11:09)
== END 2020-08-08 11:19 | disposition home or self-care (01) ==
LOC: JER 09:36
DX: M35.2 Behcet's disease (principal)
CPT/HCPCS: 99283-25

== ENCOUNTER 2020-08-26 11:54 | Emergency (ER) | payer OTHER ==
[2020-08-26 12:10] VITALS: BP 118/75; PULSE 85; TEMP 98.2; BMI 25.1
[2020-08-26] MEDS ORDERED: predniSONE 20 MG TABLET (UD) PO ONE (13:11)
[2020-08-26] MEDS ORDERED: predniSONE 20 MG TABLET (UD) ONE (13:13)
== END 2020-08-26 13:21 | disposition home or self-care (01) ==
LOC: JERFT 11:54
DX: B37.49 Other urogenital candidiasis (principal); K12.30 Oral mucositis (ulcerative), unspecified; M35.2 Behcet's disease
CPT/HCPCS: 36415; 87070; 87077; 87086; 87186; 87205; 87491; 87591; 99283-25

== ENCOUNTER 2020-08-27 12:39 | Emergency (ER) | payer OTHER ==
[2020-08-27 13:04] VITALS: BP 127/75; PULSE 72; TEMP 98; BMI 25.1
[2020-08-27] MEDS ORDERED: LIDOCAINE HCL 2% JELLY (30 ML/TUBE) TP ONE (13:31)
[2020-08-27] MEDS ORDERED: LIDOCAINE HCL 2% JELLY 10 ML CARTRIDGE ONE (13:32)
== END 2020-08-27 14:17 | disposition home or self-care (01) ==
LOC: JERFT 12:39
DX: M35.2 Behcet's disease (principal); K12.30 Oral mucositis (ulcerative), unspecified; N48.5 Ulcer of penis; H20.00 Unspecified acute and subacute iridocyclitis
CPT/HCPCS: 99284-25

== ENCOUNTER 2020-10-17 16:41 | Emergency (ER) | payer OTHER ==
[2020-10-17 16:58] VITALS: BP 119/76; PULSE 76; TEMP 98.5; BMI 32.0
[2020-10-17] MEDS ORDERED: DEXAMETHASONE SOD PHOSPHATE 10 MG/1 ML VIAL IM ONE (17:16)
[2020-10-17] MEDS ORDERED: DEXAMETHASONE SOD PHOSPHATE 10 MG/1 ML VIAL ONE (17:19)
== END 2020-10-17 17:35 | disposition home or self-care (01) ==
LOC: JERFT 16:41
PROC: 3E023GC Introduction of Other Therapeutic Substance into Muscle, Percutaneous Approach (ICD-10-PCS; principal; 2020-10-17)
DX: K12.30 Oral mucositis (ulcerative), unspecified (principal); K12.1 Other forms of stomatitis; J45.21 Mild intermittent asthma with (acute) exacerbation; M35.2 Behcet's disease
CPT/HCPCS: 99284-25; J1100

== ENCOUNTER 2020-11-23 11:39 | Emergency (ER) | payer OTHER ==
[2020-11-23 11:47] VITALS: BP 100/63; PULSE 72; TEMP 98.1; BMI 25.1
[2020-11-23] MEDS ORDERED: DEXAMETHASONE SOD PHOSPHATE 10 MG/1 ML VIAL IM ONE (12:23)
[2020-11-23] MEDS ORDERED: DEXAMETHASONE SOD PHOSPHATE 10 MG/1 ML VIAL ONE (12:26)
== END 2020-11-23 12:31 | disposition home or self-care (01) ==
LOC: JER 11:39
PROC: 3E023GC Introduction of Other Therapeutic Substance into Muscle, Percutaneous Approach (ICD-10-PCS; principal; 2020-11-23)
DX: M35.2 Behcet's disease (principal)
CPT/HCPCS: 99284-25; J1100

== ENCOUNTER 2021-01-14 16:50 | Emergency (ER) | payer OTHER ==
[2021-01-14 16:58] VITALS: BP 124/72; PULSE 91; TEMP 98.3; BMI 25.1
[2021-01-14] MEDS ORDERED: SODIUM CHLORIDE 0.9% 500 ML INFUS.BAG IV ONE (18:18)
[2021-01-14] MEDS ORDERED: methylPREDNISolone NA SUCC 125 MG/2 ML VIAL IVPB ONE (18:18)
[2021-01-14] MEDS ORDERED: ALBUTEROL SO4 2.5/IPRATROPIUM 0.5 INH SOL 3 ML VIAL.NEB. NEB ONE ×2 (18:19→18:37)
[2021-01-14] MEDS ORDERED: methylPREDNISolone NA SUCC 125 MG/2 ML VIAL ONE (18:37)
== END 2021-01-14 20:16 | disposition home or self-care (01) ==
LOC: JER 16:50
PROC: 3E0F7GC Introduction of Other Therapeutic Substance into Respiratory Tract, Via Natural or Artificial Opening (ICD-10-PCS; principal; 2021-01-14)
PROC: 3E033GC Introduction of Other Therapeutic Substance into Peripheral Vein, Percutaneous Approach (ICD-10-PCS; 2021-01-14)
DX: J45.901 Unspecified asthma with (acute) exacerbation (principal)
CPT/HCPCS: 99284-25

== ENCOUNTER 2021-02-19 15:16 | Emergency (ER) | payer OTHER ==
[2021-02-19 15:34] VITALS: BP 112/71; PULSE 61; TEMP 98; BMI 24.3
[2021-02-19] MEDS ORDERED: methylPREDNISolone NA SUCC 125 MG/2 ML VIAL IVPUSH ONE (17:13)
[2021-02-19] MEDS ORDERED: methylPREDNISolone NA SUCC 125 MG/2 ML VIAL ONE ×2 (17:20→17:22)
== END 2021-02-19 17:37 | disposition home or self-care (01) ==
LOC: JER 15:16
PROC: 3E033NZ Introduction of Analgesics, Hypnotics, Sedatives into Peripheral Vein, Percutaneous Approach (ICD-10-PCS; principal; 2021-02-19)
DX: M35.2 Behcet's disease (principal)
CPT/HCPCS: 99283-25

== ENCOUNTER 2021-07-04 00:15 | Emergency (ER) | payer OTHER ==
[2021-07-04 00:28] VITALS: BP 113/75; PULSE 115; TEMP 98.1; BMI 25.8
[2021-07-04] MEDS ORDERED: MAGNESIUM SULF 50% (8.12 MEQ/2 ML-1 GM VIAL) IVPB ONE (00:57)
[2021-07-04] MEDS ORDERED: methylPREDNISolone NA SUCC 125 MG/2 ML VIAL IVPUSH ONE (00:58)
[2021-07-04] MEDS ORDERED: methylPREDNISolone NA SUCC 125 MG/2 ML VIAL ONE (01:05)
[2021-07-04] MEDS ORDERED: MAGNESIUM SULFATE IN WATER 2 GM/50 ML IVPB IVPB ONE (01:05)
[2021-07-04] MEDS ORDERED: ALBUTEROL SO4 0.083% IH SOL 2.5 MG/3 ML VIAL.NEB. NEB ONE (02:02)
[2021-07-04] MEDS: ALBUTEROL SO4 2.5/IPRATROPIUM 0.5 INH SOL 3 ML VIAL.NEB. NEB SCH (02:04)
[2021-07-04 02:40] LABS: BASO % 1.5 % (0-2.0); EOS % 7.3 % (0-4.5); HEMATOCRIT 43.9 % (35.4-49); HEMOGLOBIN 14.6 GM/dL (11.7-16.9); LYMPH % 14.1 % (8-40); MCH 30.5 pg (25.7-33.7); MCHC 33.3 g/dl (32.0-35.9); MEAN CELL VOLUME 91.6 fl (80-96); MEAN PLT VOLUME 7.7 fl (7.5-11.1); MONO % 12.5 % (3.8-10.2); NEUT % 64.6 % (42.8-82.8); PLATELET COUNT 284 10^3/uL (134-434); RBC 4.79 M/mm3 (4.00-5.60); RDW 14.8 % (11.9-15.9); WHITE BLOOD COUNT 5.9 K/mm3 (4.0-10.0)
[2021-07-04 03:01] LABS: BLOOD UREA NITROGEN 7.8 mg/dL (7-18); CALCIUM 8.2 mg/dL (8.5-10.1)
[2021-07-04 03:02] LABS: ALBUMIN 3.8 g/dl (3.4-5.0)
[2021-07-04 03:06] LABS: BILIRUBIN,TOTAL 0.5 mg/dL (0.2-1); TOT PROT 7.6 g/dl (6.4-8.2)
== END 2021-07-04 03:35 | disposition home or self-care (01) ==
LOC: JER 00:15
PROC: 3E0F7GC Introduction of Other Therapeutic Substance into Respiratory Tract, Via Natural or Artificial Opening (ICD-10-PCS; principal; 2021-07-04)
PROC: 3E033GC Introduction of Other Therapeutic Substance into Peripheral Vein, Percutaneous Approach (ICD-10-PCS; 2021-07-04)
PROC: 3E033GC Introduction of Other Therapeutic Substance into Peripheral Vein, Percutaneous Approach (ICD-10-PCS; 2021-07-04)
DX: J45.21 Mild intermittent asthma with (acute) exacerbation (principal)
CPT/HCPCS: 36415; 71045-TC-FY; 80053; 85025; 94640; 96374; 96375; 99284-25

== ENCOUNTER 2021-09-26 05:51 | Inpatient (IN) | payer OTHER ==
[2021-09-26] MEDS: ALBUTEROL SO4 2.5/IPRATROPIUM 0.5 INH SOL 3 ML VIAL.NEB. NEB SCH ×2 (06:01→07:30)
[2021-09-26 06:11] LABS: BASO % 0.8 % (0-2.0); EOS % 9.1 % (0-4.5); HEMOGLOBIN 15.3 GM/dL (11.7-16.9); LYMPH % 39.9 % (8-40); MCH 30.7 pg (25.7-33.7); MCHC 33.9 g/dl (32.0-35.9); MEAN CELL VOLUME 90.5 fl (80-96); MEAN PLT VOLUME 8.1 fl (7.5-11.1); MONO % 9.6 % (3.8-10.2); NEUT % 40.6 % (42.8-82.8); PLATELET COUNT 289 10^3/uL (134-434); RBC 4.98 M/mm3 (4.00-5.60); RDW 14.5 % (11.9-15.9); WHITE BLOOD COUNT 7.2 K/mm3 (4.0-10.0)
[2021-09-26 06:12] LABS: VENOUS BASE EXCESS -1.6 mmol/L (-2-2); VENOUS O2 SATURATION 88.2 % (70-80); VENOUS PCO2 55.6 mmHg (38-52); VENOUS PH 7.291 (7.310-7.410)
[2021-09-26 06:18] LABS: INR 1.21 (0.83-1.09)
[2021-09-26 06:20] LABS: ACTIVATED PTT 29.9 SECONDS (25.2-36.5)
[2021-09-26 06:30] LABS: CALCIUM 9.1 mg/dL (8.5-10.1)
[2021-09-26 06:31] LABS: BLOOD UREA NITROGEN 8.4 mg/dL (7-18)
[2021-09-26 06:35] LABS: BILIRUBIN,TOTAL 0.3 mg/dL (0.2-1); TOT PROT 7.6 g/dl (6.4-8.2)
[2021-09-26] MEDS ORDERED: POTASSIUM CHLORIDE TABS 20 MEQ TABLET.ER (FP) PO ONE ×2 (07:12→07:38)
[2021-09-26] MEDS ORDERED: ACETAMINOPHEN 500 MG TABLET (FP) PO ONE (07:28)
[2021-09-26] MEDS ORDERED: MAGNESIUM SULF 50% (8.12 MEQ/2 ML-1 GM VIAL) IVPB ONE (07:29)
[2021-09-26] MEDS ORDERED: ALBUTEROL SO4 2.5/IPRATROPIUM 0.5 INH SOL 3 ML VIAL.NEB. NEB SCH (07:30)
[2021-09-26] MEDS ORDERED: ALBUTEROL SO4 2.5/IPRATROPIUM 0.5 INH SOL 3 ML VIAL.NEB. NEB ONE ×2 (07:31→07:37)
[2021-09-26] MEDS ORDERED: MAGNESIUM SULFATE IN WATER 2 GM/50 ML IVPB IVPB ONE (07:39)
[2021-09-26] MEDS ORDERED: ALBUTEROL SO4 0.083% IH SOL 2.5 MG/3 ML VIAL.NEB. NEB PRN (07:52)
[2021-09-26] MEDS ORDERED: ACETAMINOPHEN 500 MG TABLET (FP) ONE (07:57)
[2021-09-26] MEDS ORDERED: methylPREDNISolone NA SUCC 40 MG/1 ML VIAL ONE (08:58)
[2021-09-26] MEDS ORDERED: BUDESONIDE/FORMETEROL FUMARATE 80/4.5 mcg INHALER IH SCH (10:00)
[2021-09-26] MEDS ORDERED: methylPREDNISolone NA SUCC 40 MG/1 ML VIAL IVPUSH SCH (10:00)
[2021-09-26 13:27] VITALS: BP 125/63; PULSE 97; TEMP 97.8; BMI 21.7
== END 2021-09-26 15:21 | disposition home or self-care (01) | DRG 141 ==
LOC: JER 05:51 → JERBED 06:45 → J7W 10:22
PROVIDERS: ADMIT Internal Medicine; ATTEND Internal Medicine
DX: J45.31 Mild persistent asthma with (acute) exacerbation (principal); E87.6 Hypokalemia; F12.90 Cannabis use, unspecified, uncomplicated; F17.290 Nicotine dependence, other tobacco product, uncomplicated; J30.2 Other seasonal allergic rhinitis; R07.89 Other chest pain
CPT/HCPCS: 0241U-QW; 36415; 71045-TC-FY; 80053; 82803; 83735; 84484; 85025; 85610; 85730; 93005; 93010; 99285-25

== ENCOUNTER 2021-12-04 12:24 | Emergency (ER) | payer OTHER ==
[2021-12-04 12:43] VITALS: BP 119/70; PULSE 68; RESP 18; TEMP 97.9; BMI 24.3
[2021-12-04] MEDS ORDERED: methylPREDNISolone NA SUCC 125 MG/2 ML VIAL IVPUSH ONE (14:03)
[2021-12-04] MEDS ORDERED: methylPREDNISolone NA SUCC 125 MG/2 ML VIAL IM ONE (14:16)
[2021-12-04] MEDS ORDERED: methylPREDNISolone NA SUCC 125 MG/2 ML VIAL ONE (14:24)
== END 2021-12-04 14:34 | disposition home or self-care (01) ==
LOC: JERFT 12:24
PROC: 3E023GC Introduction of Other Therapeutic Substance into Muscle, Percutaneous Approach (ICD-10-PCS; principal; 2021-12-04)
DX: K12.30 Oral mucositis (ulcerative), unspecified (principal); M35.2 Behcet's disease
CPT/HCPCS: 99284-25

== ENCOUNTER 2021-12-07 12:09 | Observation (INO) | payer OTHER ==
[2021-12-07 12:23] VITALS: BP 101/67; PULSE 109; RESP 18; TEMP 99.5; BMI 22.9
[2021-12-07] MEDS: ALBUTEROL SO4 2.5/IPRATROPIUM 0.5 INH SOL 3 ML VIAL.NEB. NEB SCH ×3 (12:40→13:19)
[2021-12-07] MEDS ORDERED: methylPREDNISolone NA SUCC 125 MG/2 ML VIAL IVPUSH ONE (12:47)
[2021-12-07] MEDS ORDERED: SODIUM CHLORIDE 1,000 ML IV STA (12:49)
[2021-12-07] MEDS ORDERED: methylPREDNISolone NA SUCC 125 MG/2 ML VIAL ONE (13:06)
[2021-12-07] MEDS ORDERED: MAGNESIUM SULF 50% (8.12 MEQ/2 ML-1 GM VIAL) IVPB ONE (14:17)
[2021-12-07] MEDS ORDERED: ACETAMINOPHEN 500 MG TABLET (FP) PO ONE (14:17)
[2021-12-07] MEDS ORDERED: ACETAMINOPHEN 500 MG TABLET (FP) ONE (14:21)
[2021-12-07] MEDS ORDERED: MAGNESIUM SULFATE IN WATER 2 GM/50 ML IVPB IVPB ONE (14:25)
[2021-12-07 16:39] LABS: BASO % 0.3 % (0-2.0); EOS % 0.4 % (0-4.5); HEMATOCRIT 42.8 % (35.4-49); HEMOGLOBIN 14.4 GM/dL (11.7-16.9); LYMPH % 6.6 % (8-40); MCHC 33.6 g/dl (32.0-35.9); MEAN CELL VOLUME 89.3 fl (80-96); MEAN PLT VOLUME 7.9 fl (7.5-11.1); MONO % 3.1 % (3.8-10.2); NEUT % 89.6 % (42.8-82.8); PLATELET COUNT 282 10^3/uL (134-434); RBC 4.79 M/mm3 (4.00-5.60); RDW 14.8 % (11.9-15.9); WHITE BLOOD COUNT 7.3 K/mm3 (4.0-10.0)
[2021-12-07 17:06] LABS: CALCIUM 9.1 mg/dL (8.5-10.1)
[2021-12-07 17:07] LABS: ALBUMIN 3.6 g/dl (3.4-5.0); BLOOD UREA NITROGEN 9.6 mg/dL (7-18)
[2021-12-07 17:10] LABS: CREATININE 1.1 mg/dL (0.55-1.3)
[2021-12-07 17:11] LABS: TOT PROT 7.5 g/dl (6.4-8.2)
[2021-12-07 17:12] LABS: BILIRUBIN,TOTAL 0.9 mg/dL (0.2-1)
[2021-12-07] MEDS ORDERED: ALBUTEROL SO4 2.5/IPRATROPIUM 0.5 INH SOL 3 ML VIAL.NEB. NEB PRN (18:25)
[2021-12-07] MEDS ORDERED: SODIUM CHLORIDE 1,000 ML IV SCH (18:30)
[2021-12-07] MEDS ORDERED: ALBUTEROL SO4 HFA INHALER IH PRN (18:30)
[2021-12-07] MEDS ORDERED: methylPREDNISolone NA SUCC 125 MG/2 ML VIAL IVPUSH SCH (18:30)
[2021-12-07] MEDS: ALBUTEROL SO4 0.083% IH SOL 2.5 MG/3 ML VIAL.NEB. NEB SCH ×4 (19:00→20:07)
[2021-12-07] MEDS ORDERED: ALBUTEROL SO4 0.083% IH SOL 2.5 MG/3 ML VIAL.NEB. NEB ONE (19:53)
[2021-12-07] MEDS ORDERED: methylPREDNISolone NA SUCC 40 MG/1 ML VIAL ONE (19:54)
[2021-12-07] MEDS ORDERED: BUDESONIDE/FORMETEROL FUMARATE 80/4.5 mcg INHALER IH SCH (22:00)
== END 2021-12-07 20:37 | disposition left against medical advice (07) ==
LOC: JER 12:09 → JERBED 17:55
PROVIDERS: ADMIT Internal Medicine; ATTEND Internal Medicine
PROC: 3E0F7GC Introduction of Other Therapeutic Substance into Respiratory Tract, Via Natural or Artificial Opening (ICD-10-PCS; principal; 2021-12-07)
PROC: 3E033GC Introduction of Other Therapeutic Substance into Peripheral Vein, Percutaneous Approach (ICD-10-PCS; 2021-12-07)
PROC: 3E0337Z Introduction of Electrolytic and Water Balance Substance into Peripheral Vein, Percutaneous Approach (ICD-10-PCS; 2021-12-07)
DX: K12.30 Oral mucositis (ulcerative), unspecified (principal); J45.909 Unspecified asthma, uncomplicated; F17.210 Nicotine dependence, cigarettes, uncomplicated; E11.9 Type 2 diabetes mellitus without complications; L51.1 Stevens-Johnson syndrome; M35.2 Behcet's disease; Z90.49 Acquired absence of other specified parts of digestive tract; Z88.8 Allergy status to other drugs, medicaments and biological substances
CPT/HCPCS: 0241U-QW; 36415; 71046-TC-FY; 80053; 85025; 93005; 93010; 94640; 96361; 96366; 96374; 96375; 99285-25; G0378

== ENCOUNTER 2021-12-16 11:17 | Emergency (ER) | payer OTHER ==
[2021-12-16 11:37] VITALS: BP 109/76; PULSE 77; RESP 19; TEMP 97.9; BMI 22.9
[2021-12-16] MEDS ORDERED: DOXYCYCLINE HYCLATE 100 MG CAPSULE PO ONE ×2 (13:38→13:45)
== END 2021-12-16 14:26 | disposition home or self-care (01) ==
LOC: JERFT 11:17
DX: Z20.3 Contact with and (suspected) exposure to rabies (principal)
CPT/HCPCS: 36415; 87491; 87591; 99283-25

== ENCOUNTER 2022-04-10 14:30 | Emergency (ER) | payer OTHER ==
[2022-04-10 15:00] VITALS: BP 116/73; PULSE 85; RESP 16; TEMP 98.2; BMI 23.6
[2022-04-10] MEDS ORDERED: DEXAMETHASONE SOD PHOSPHATE 10 MG/1 ML VIAL IM ONE (15:39)
[2022-04-10] MEDS ORDERED: ALBUTEROL SO4 2.5/IPRATROPIUM 0.5 INH SOL 3 ML VIAL.NEB. NEB ONE ×2 (15:39→15:42)
[2022-04-10] MEDS ORDERED: DEXAMETHASONE SOD PHOSPHATE 10 MG/1 ML VIAL ONE (15:42)
== END 2022-04-10 17:05 | disposition home or self-care (01) ==
LOC: JERFT 14:30
PROC: 3E023GC Introduction of Other Therapeutic Substance into Muscle, Percutaneous Approach (ICD-10-PCS; principal; 2022-04-10)
PROC: 3E0F7GC Introduction of Other Therapeutic Substance into Respiratory Tract, Via Natural or Artificial Opening (ICD-10-PCS; 2022-04-10)
DX: J45.909 Unspecified asthma, uncomplicated (principal)
CPT/HCPCS: 99284-25; J1100

== ENCOUNTER 2022-11-16 11:50 | Emergency (ER) | payer OTHER ==
[2022-11-16 12:12] VITALS: BP 118/74; PULSE 63; RESP 18; TEMP 98.7; BMI 23.2
[2022-11-16] MEDS ORDERED: DEXAMETHASONE SOD PHOSPHATE 10 MG/1 ML VIAL IM ONE (12:24)
[2022-11-16] MEDS ORDERED: DEXAMETHASONE SOD PHOSPHATE 10 MG/1 ML VIAL ONE (12:32)
== END 2022-11-16 13:56 | disposition home or self-care (01) ==
LOC: JERFT 11:50
PROC: 3E023GC Introduction of Other Therapeutic Substance into Muscle, Percutaneous Approach (ICD-10-PCS; principal; 2022-11-16)
DX: S93.601A Unspecified sprain of right foot, initial encounter (principal); L30.9 Dermatitis, unspecified; R22.42 Localized swelling, mass and lump, left lower limb; X58.XXXA Exposure to other specified factors, initial encounter
CPT/HCPCS: 73630-TC-RT-FY; 99284-25; J1100

== ENCOUNTER 2023-01-04 15:15 | Emergency (ER) | payer OTHER ==
[2023-01-04 15:24] VITALS: BP 112/69; PULSE 63; RESP 16; TEMP 98.3; BMI 23.6
[2023-01-04] MEDS ORDERED: DEXAMETHASONE SOD PHOSPHATE 10 MG/1 ML VIAL ONE (16:00)
[2023-01-04] MEDS ORDERED: DEXAMETHASONE SOD PHOSPHATE 10 MG/1 ML VIAL IM ONE (16:00)
== END 2023-01-04 16:15 | disposition home or self-care (01) ==
LOC: JERFT 15:15
PROC: 3E023GC Introduction of Other Therapeutic Substance into Muscle, Percutaneous Approach (ICD-10-PCS; principal; 2023-01-04)
DX: H02.843 Edema of right eye, unspecified eyelid (principal); H00.011 Hordeolum externum right upper eyelid; M35.2 Behcet's disease
CPT/HCPCS: 99284-25; J1100

== ENCOUNTER 2023-01-21 13:21 | Emergency (ER) | payer OTHER ==
[2023-01-21 13:26] VITALS: BP 108/67; RESP 18; TEMP 98.1; BMI 24.3
[2023-01-21] MEDS ORDERED: DEXAMETHASONE SOD PHOSPHATE 10 MG/1 ML VIAL IM ONE (15:18)
[2023-01-21 15:37] VITALS: PULSE 77
[2023-01-21] MEDS ORDERED: DEXAMETHASONE SOD PHOSPHATE 10 MG/1 ML VIAL ONE (15:57)
== END 2023-01-21 16:02 | disposition home or self-care (01) ==
LOC: JERFT 13:21
PROC: 3E023GC Introduction of Other Therapeutic Substance into Muscle, Percutaneous Approach (ICD-10-PCS; principal; 2023-01-21)
DX: M35.2 Behcet's disease (principal)
CPT/HCPCS: 99284-25; J1100

== ENCOUNTER 2023-05-15 13:23 | Emergency (ER) | payer OTHER ==
[2023-05-15 13:38] VITALS: RESP 18; BMI 23.6
[2023-05-15] MEDS ORDERED: DEXAMETHASONE SOD PHOSPHATE 10 MG/1 ML VIAL IM ONE (14:11)
[2023-05-15] MEDS ORDERED: DEXAMETHASONE SOD PHOSPHATE 10 MG/1 ML VIAL ONE (14:14)
[2023-05-15 17:37] VITALS: BP 118/71; PULSE 62; TEMP 97.8
== END 2023-05-15 17:37 | disposition home or self-care (01) ==
LOC: JER 13:23
PROC: 3E023GC Introduction of Other Therapeutic Substance into Muscle, Percutaneous Approach (ICD-10-PCS; principal; 2023-05-15)
DX: L29.9 Pruritus, unspecified (principal); L98.9 Disorder of the skin and subcutaneous tissue, unspecified; M35.2 Behcet's disease
CPT/HCPCS: 99284-25; J1100

== ENCOUNTER 2023-06-10 16:13 | Emergency (ER) | payer OTHER ==
[2023-06-10 16:43] VITALS: BP 107/74; PULSE 63; RESP 18; TEMP 98; BMI 23.6
[2023-06-10] MEDS ORDERED: DEXAMETHASONE SOD PHOSPHATE 10 MG/1 ML VIAL ONE (18:57)
[2023-06-10] MEDS ORDERED: ALBUTEROL SO4 2.5/IPRATROPIUM 0.5 INH SOL 3 ML VIAL.NEB. NEB ONE ×2 (18:57→19:38)
[2023-06-10] MEDS: ALBUTEROL SO4 2.5/IPRATROPIUM 0.5 INH SOL 3 ML VIAL.NEB. NEB SCH (19:03)
[2023-06-10] MEDS: DEXAMETHASONE SOD PHOSPHATE 10 MG/1 ML VIAL IM ONE (19:03)
== END 2023-06-10 20:35 | disposition home or self-care (01) ==
LOC: JERFT 16:13 → JER 16:13 → JERFT 20:35
PROC: 3E023GC Introduction of Other Therapeutic Substance into Muscle, Percutaneous Approach (ICD-10-PCS; principal; 2023-06-10)
PROC: 3E0F7GC Introduction of Other Therapeutic Substance into Respiratory Tract, Via Natural or Artificial Opening (ICD-10-PCS; 2023-06-10)
DX: J45.901 Unspecified asthma with (acute) exacerbation (principal); Z20.822 Contact with and (suspected) exposure to COVID-19
CPT/HCPCS: 0241U-QW; 94640; 96372; 99284-25; J1100

== ENCOUNTER 2023-07-01 13:52 | Emergency (ER) | payer OTHER ==
[2023-07-01 14:12] VITALS: BP 126/75; PULSE 73; RESP 16; TEMP 98.7; BMI 23.6
[2023-07-01] MEDS ORDERED: predniSONE 10 MG TABLET (UD) ONE (16:23)
[2023-07-01] MEDS ORDERED: predniSONE 20 MG TABLET (UD) ONE (16:23)
[2023-07-01] MEDS ORDERED: LIDOCAINE VISCOUS 2% ORAL/TOP 15 ML UNIT-DOSE CUP ONE (16:31)
[2023-07-01] MEDS ORDERED: DEXAMETHASONE SOD PHOSPHATE 10 MG/1 ML VIAL ONE (16:35)
[2023-07-01] MEDS: DEXAMETHASONE SOD PHOSPHATE 10 MG/1 ML VIAL IM ONE (16:39)
[2023-07-01] MEDS: LIDOCAINE VISCOUS 2% ORAL/TOP 15 ML UNIT-DOSE CUP MM ONE (16:43)
[2023-07-02] MEDS ORDERED: predniSONE 20 MG TABLET (UD) PO ONE (16:08)
== END 2023-07-01 17:11 | disposition home or self-care (01) ==
LOC: JERFT 13:52
PROC: 3E023GC Introduction of Other Therapeutic Substance into Muscle, Percutaneous Approach (ICD-10-PCS; principal; 2023-07-01)
DX: K13.70 Unspecified lesions of oral mucosa (principal); H57.89 Other specified disorders of eye and adnexa; M35.2 Behcet's disease
CPT/HCPCS: 99284-25; J1100

== ENCOUNTER 2023-08-06 12:00 | Emergency (ER) | payer OTHER ==
[2023-08-06 12:11] VITALS: BP 108/73; PULSE 66; RESP 16; TEMP 97.9; BMI 25.1
[2023-08-06] MEDS ORDERED: DEXAMETHASONE SOD PHOSPHATE 10 MG/1 ML VIAL ONE (12:42)
[2023-08-06] MEDS: DEXAMETHASONE SOD PHOSPHATE 10 MG/1 ML VIAL IM ONE (12:42)
== END 2023-08-06 13:00 | disposition home or self-care (01) ==
LOC: JERFT 12:00
PROC: 3E023GC Introduction of Other Therapeutic Substance into Muscle, Percutaneous Approach (ICD-10-PCS; principal; 2023-08-06)
DX: R21 Rash and other nonspecific skin eruption (principal); M35.2 Behcet's disease
CPT/HCPCS: 96372; 99284-25; J1100

== ENCOUNTER 2023-08-27 16:40 | Emergency (ER) | payer OTHER ==
[2023-08-27 16:45] VITALS: RESP 18; TEMP 98; BMI 24.3
[2023-08-27] MEDS ORDERED: ALBUTEROL SO4 2.5/IPRATROPIUM 0.5 INH SOL 3 ML VIAL.NEB. NEB ONE (16:53)
[2023-08-27] MEDS: ALBUTEROL SO4 2.5/IPRATROPIUM 0.5 INH SOL 3 ML VIAL.NEB. NEB ONE (16:57)
[2023-08-27] MEDS: ALBUTEROL SO4 0.083% IH SOL 2.5 MG/3 ML VIAL.NEB. NEB ONE (17:22)
[2023-08-27] MEDS ORDERED: ALBUTEROL SO4 0.083% IH SOL 2.5 MG/3 ML VIAL.NEB. NEB ONE (17:23)
[2023-08-27] MEDS ORDERED: DEXAMETHASONE SOD PHOSPHATE 10 MG/1 ML VIAL ONE (17:44)
[2023-08-27] MEDS: SODIUM CHLORIDE 1,000 ML IV STA (17:48)
[2023-08-27] MEDS: DEXAMETHASONE SOD PHOSPHATE 10 MG/1 ML VIAL IVPUSH ONE (17:49)
[2023-08-27] MEDS: DEXAMETHASONE SOD PHOSPHATE 10 MG/1 ML VIAL IM ONE (17:49)
[2023-08-27 19:11] VITALS: BP 109/60; PULSE 83
== END 2023-08-27 19:17 | disposition home or self-care (01) ==
LOC: JERFT 16:40
PROC: 3E0337Z Introduction of Electrolytic and Water Balance Substance into Peripheral Vein, Percutaneous Approach (ICD-10-PCS; principal; 2023-08-27)
PROC: 3E023GC Introduction of Other Therapeutic Substance into Muscle, Percutaneous Approach (ICD-10-PCS; 2023-08-27)
PROC: 3E0F7GC Introduction of Other Therapeutic Substance into Respiratory Tract, Via Natural or Artificial Opening (ICD-10-PCS; 2023-08-27)
PROC: 3E0F7GC Introduction of Other Therapeutic Substance into Respiratory Tract, Via Natural or Artificial Opening (ICD-10-PCS; 2023-08-27)
DX: J45.901 Unspecified asthma with (acute) exacerbation (principal); R07.89 Other chest pain; R63.0 Anorexia
CPT/HCPCS: 71046-TC-FY; 93005; 93010; 99284-25; J1100

== ENCOUNTER 2023-10-24 16:20 | Observation (INO) | payer OTHER ==
[2023-10-24 16:29] VITALS: TEMP 98.3; BMI 22.2
[2023-10-24] MEDS ORDERED: MAGNESIUM SULFATE IN WATER 2 GM/50 ML IVPB IVPB ONE ×2 (17:13→17:30)
[2023-10-24] MEDS ORDERED: ALBUTEROL SO4 2.5/IPRATROPIUM 0.5 INH SOL 3 ML VIAL.NEB. NEB ONE (17:13)
[2023-10-24] MEDS ORDERED: methylPREDNISolone NA SUCC 125 MG/2 ML VIAL ONE (17:13)
[2023-10-24] MEDS: ALBUTEROL SO4 2.5/IPRATROPIUM 0.5 INH SOL 3 ML VIAL.NEB. NEB SCH (17:26)
[2023-10-24] MEDS: methylPREDNISolone NA SUCC 125 MG/2 ML VIAL IVPUSH ONE (17:26)
[2023-10-24] MEDS: MAGNESIUM SULF 50% (8.12 MEQ/2 ML-1 GM VIAL) IVPB ONE (17:35)
[2023-10-24] MEDS ORDERED: ALBUTEROL SO4 0.083% IH SOL 2.5 MG/3 ML VIAL.NEB. NEB ONE (17:55)
[2023-10-24 18:14] LABS: VENOUS BASE EXCESS 3.8 mmol/L (-2-2); VENOUS O2 SATURATION 52.3 % (70-80); VENOUS PCO2 54.2 mmHg (38-52); VENOUS PH 7.368 (7.310-7.410)
[2023-10-24] MEDS: SODIUM CHLORIDE 0.9% 500 ML INFUS.BAG IV ONE (18:14)
[2023-10-24 18:15] LABS: BASO % 0.7 % (0-2.0); EOS % 11.1 % (0-4.5); HEMATOCRIT 41.2 % (35.4-49); HEMOGLOBIN 13.8 GM/dL (11.7-16.9); LYMPH % 33.1 % (8-40); MCH 30.4 pg (25.7-33.7); MCHC 33.5 g/dl (32.0-35.9); MEAN CELL VOLUME 90.7 fl (80-96); MEAN PLT VOLUME 7.4 fl (7.5-11.1); MONO % 10.4 % (3.8-10.2); NEUT % 44.7 % (42.8-82.8); PLATELET COUNT 277 10^3/uL (134-434); RBC 4.54 M/mm3 (4.00-5.60); RDW 14.8 % (11.9-15.9); WHITE BLOOD COUNT 7.5 K/mm3 (4.0-10.0)
[2023-10-24 18:34] LABS: POTASSIUM 3.4 mmol/L (3.5-5.1)
[2023-10-24 18:36] LABS: BLOOD UREA NITROGEN 4.3 mg/dL (7-18); CALCIUM 9.5 mg/dL (8.5-10.1)
[2023-10-24 18:37] LABS: ALBUMIN 3.8 g/dl (3.4-5.0)
[2023-10-24 18:40] LABS: CREATININE 0.8 mg/dL (0.55-1.3)
[2023-10-24 18:42] LABS: BILIRUBIN,TOTAL 0.4 mg/dL (0.2-1); TOT PROT 7.4 g/dl (6.4-8.2)
[2023-10-24 19:07] VITALS: BP 142/83; PULSE 88; RESP 22
== END 2023-10-24 20:42 | disposition left against medical advice (07) ==
LOC: JER 16:20 → JERBED 18:00
PROVIDERS: ADMIT Internal Medicine; ATTEND Internal Medicine
PROC: 3E0F7GC Introduction of Other Therapeutic Substance into Respiratory Tract, Via Natural or Artificial Opening (ICD-10-PCS; principal; 2023-10-24)
PROC: 3E0337Z Introduction of Electrolytic and Water Balance Substance into Peripheral Vein, Percutaneous Approach (ICD-10-PCS; 2023-10-24)
PROC: 3E033GC Introduction of Other Therapeutic Substance into Peripheral Vein, Percutaneous Approach (ICD-10-PCS; 2023-10-24)
DX: J45.901 Unspecified asthma with (acute) exacerbation (principal); J96.01 Acute respiratory failure with hypoxia; Z88.8 Allergy status to other drugs, medicaments and biological substances; M35.2 Behcet's disease
CPT/HCPCS: 0241U-QW; 36415; 71045-TC-FY; 80053; 82803; 85025; 93005; 93010; 94640; 96374; 96375; 99291; G0378

== ENCOUNTER 2024-01-15 12:30 | Emergency (ER) | payer OTHER ==
[2024-01-15 12:39] VITALS: BP 117/72; PULSE 58; RESP 18; TEMP 98.5; BMI 23.6
[2024-01-15] MEDS ORDERED: DEXAMETHASONE SOD PHOSPHATE 10 MG/1 ML VIAL ONE (13:48)
[2024-01-15] MEDS: DEXAMETHASONE SOD PHOSPHATE 10 MG/1 ML VIAL IM ONE (13:53)
== END 2024-01-15 13:58 | disposition home or self-care (01) ==
LOC: JERFT 12:30
PROC: 3E023GC Introduction of Other Therapeutic Substance into Muscle, Percutaneous Approach (ICD-10-PCS; principal; 2024-01-15)
DX: H10.9 Unspecified conjunctivitis (principal); K13.70 Unspecified lesions of oral mucosa
CPT/HCPCS: 99284-25; J1100

== ENCOUNTER 2024-02-13 09:33 | Emergency (ER) | payer OTHER ==
[2024-02-13 09:48] VITALS: BP 123/87; PULSE 62; RESP 18; TEMP 98.4; BMI 22.9
[2024-02-13] MEDS ORDERED: DEXAMETHASONE SOD PHOSPHATE 10 MG/1 ML VIAL ONE (10:29)
[2024-02-13] MEDS: DEXAMETHASONE SOD PHOSPHATE 10 MG/1 ML VIAL IM ONE (10:34)
== END 2024-02-13 11:37 | disposition home or self-care (01) ==
LOC: JER 09:33
PROC: 3E023GC Introduction of Other Therapeutic Substance into Muscle, Percutaneous Approach (ICD-10-PCS; principal; 2024-02-13)
DX: M35.2 Behcet's disease (principal); R21 Rash and other nonspecific skin eruption
CPT/HCPCS: 99284-25; J1100